=== PATIENT | male | born 1950 | race Caucasian/White ===

== ENCOUNTER 2017-11-13 15:58 | Inpatient (IN) | payer OTHER, SELFPAY ==
[2017-11-13] VITALS (16 sets, daily range): BP systolic 100–123; BP diastolic 70–83; PULSE 58–97; RESP 15–20; TEMP 36.6–37.1; O2SAT 94–100; BMI 29.5; BMI 27.5
--- NOTE | 2017-11-13 16:01 | RAD_ITS ---
STUDY: X-RAY CHEST REASON FOR EXAM: Male, 67 years old. Chest pain. STEMI. TECHNIQUE: Single AP portable view of the chest. COMPARISON: None. FINDINGS: Telemetry wires overlie the chest. The lungs are clear and expanded. There is no demonstrated pleural abnormality. Normal size heart. Normal mediastinum and gautam. Normal visualized pulmonary arteries. Normal visualized aortic arch and descending thoracic aorta. There are diffuse degenerative changes of the visualized thoracic spine. Normal visualized ribs, clavicles, and shoulders. There is no demonstrated abnormality of the visualized soft tissue structures of the upper abdomen. RAD/Chest 1 View (Portable) IMPRESSION: No acute cardiopulmonary disease. Electronically Signed: Santo Grover DO at 16:15 EDT Tel [phone], Service support ,
--- NOTE | 2017-11-13 16:01 | EKG12_ITS ---
Test Reason : STEMI/CHEST PAIN Blood Pressure : / mmHG Vent. Rate : 072 BPM Atrial Rate : 072 BPM P-R Int : 152 ms QRS Dur : 104 ms QT Int : 404 ms P-R-T Axes : 049 -70 010 degrees QTc Int : 442 ms Normal sinus rhythm Left anterior fascicular block Anterior infarct , possibly acute ACUTE UT / STEMI Abnormal ECG Confirmed by JOEY JAMES ([id number]), book or script editor CELSO MCCAIN ([id number]) on 11/27/2017 5:25:20 PM Referred By: Mojgan Salgado Confirmed By:JOEY JAMES
--- NOTE | 2017-11-13 16:02 | NURSING ---
NO OLD EKGS
--- NOTE | 2017-11-13 16:02 | NURSING ---
1542 STEMI CALLED ON [facility] EKG 15[address] LAZAR FOR DR DUVAL 1557 PATIENT ARRIVED
[2017-11-13] MEDS: Heparin Injection (Vial) 5,000 UNIT/ML VIAL 4000 UNIT IV (16:10)
[2017-11-13] MEDS: TICAGRELOR 90 MG TABLET 180 MG PO (16:10)
--- NOTE | 2017-11-13 16:12 | ED.VISSUMM ---
- ER Visit Summary Date of Service: 11/13/17 Chief Complaint: Chest pain while mowing the yard History of Present Illness: The patient is a 67 M Zentz by EMS with chest pain that occurred 30 minutes after he began mowing the yard. He describes as if horses sitting on his chest. Was associated with nausea, dyspnea, diaphoresis and radiation to both shoulders. He has no known history of coronary disease, diabetes, hypertension, hyperlipidemia. He does take a baby aspirin a day. He has never smoked. Past surgical history remarkable for appendectomy. He has no allergies. We were informed prior to arrival his blood pressure was 89 systolic. Fluid bolus was ordered. Physical Examination: Initial blood pressure is 106 systolic. He appears pale diaphoretic. He appears uncomfortable. Head is atraumatic normocephalic. Pupils are equal round reactive. Extraocular muscles are intact. TMs are pearly white with landmarks noted. Nares patent with no drainage. Posterior pharynx without erythema or exudate. Uvula is midline. There is no dysphonia or dysphasia. Trachea is midline. There is no stridor with auscultation of the neck. Heart is regular without murmur, gallop or rub. S1 and S2 are normal. Lungs are clear to auscultation with good movement of air bilaterally. Abdomen is soft nontender. Is no palpable semester down bruit. There is no palpable DP or PT pulse. Does have a palpable radial, femoral and carotid. He is alert oriented ?3. Pre-hospital EKG revealed hyper acute anterior T waves with reciprocal changes in the inferior leads. Received 4 baby aspirin. Test Results: EKG obtained in the emergency department reveals an acute anterior ST elevation HI with reciprocal changes inferior leads. Chest x-ray reveals normal mediastinum, cardiac silhouette and lung parenchyma. He received 180 mg of Brilinta and [address] elevation order set was initiated. Emergency Department Course and Treatment: Dr. Salgado is contacted once the EMS EKG was reviewed. Patient was consented for emergent cardiac catheterization, angioplasty and stenting. He was taken emergently to the Police Dispatcher. Treatment Plan: To cardiac Police Dispatcher for emergent cardiac catheterization, angioplasty and stenting Disposition: To Police Dispatcher Impression: 1. Acute anterior ST elevation HI 2. Hypotension/cardiogenic shock secondary #1 This note was generated with [employer] software. It may contain incorrect words, spelling, and punctuation that were not noted in review of the chart prior to signing ED Disposition - Plan for ED Patient: Chief Complaint: Chest Pain Referrals: Siva Canales MD [Primary Care Provider] -
--- NOTE | 2017-11-13 16:15 | ED.DCSUM_ITS ---
- ER Visit Summary Date of Service: 11/13/17 Chief Complaint: Chest pain while mowing the yard History of Present Illness: The patient is a 67 M Zentz by EMS with chest pain that occurred 30 minutes after he began mowing the yard. He describes as if horses sitting on his chest. Was associated with nausea, dyspnea, diaphoresis and radiation to both shoulders. He has no known history of coronary disease, diabetes, hypertension, hyperlipidemia. He does take a baby aspirin a day. He has never smoked. Past surgical history remarkable for appendectomy. He has no allergies. We were informed prior to arrival his blood pressure was 89 systolic. Fluid bolus was ordered. Physical Examination: Initial blood pressure is 106 systolic. He appears pale diaphoretic. He appears uncomfortable. Head is atraumatic normocephalic. Pupils are equal round reactive. Extraocular muscles are intact. TMs are pearly white with landmarks noted. Nares patent with no drainage. Posterior pharynx without erythema or exudate. Uvula is midline. There is no dysphonia or dysphasia. Trachea is midline. There is no stridor with auscultation of the neck. Heart is regular without murmur, gallop or rub. S1 and S2 are normal. Lungs are clear to auscultation with good movement of air bilaterally. Abdomen is soft nontender. Is no palpable semester down bruit. There is no palpable DP or PT pulse. Does have a palpable radial, femoral and carotid. He is alert oriented ?3. Pre-hospital EKG revealed hyper acute anterior T waves with reciprocal changes in the inferior leads. Received 4 baby aspirin. Test Results: EKG obtained in the emergency department reveals an acute anterior ST elevation NE with reciprocal changes inferior leads. Chest x-ray reveals normal mediastinum, cardiac silhouette and lung parenchyma. He received 180 mg of Brilinta and [address] elevation order set was initiated. Emergency Department Course and Treatment: Dr. Salgado is contacted once the EMS EKG was reviewed. Patient was consented for emergent cardiac catheterization, angioplasty and stenting. He was taken emergently to the Equipment Operator/Laborer. Treatment Plan: To cardiac Equipment Operator/Laborer for emergent cardiac catheterization, angioplasty and stenting Disposition: To Equipment Operator/Laborer Impression: 1. Acute anterior ST elevation NE 2. Hypotension/cardiogenic shock secondary #1 This note was generated with [employer] software. It may contain incorrect words, spelling, and punctuation that were not noted in review of the chart prior to signing ED Disposition - Plan for ED Patient: Chief Complaint: Chest Pain Referrals: Siva Canales MD [Primary Care Provider] -
--- NOTE | 2017-11-13 16:16 | CON.PCM_ITS ---
Problem List (1) STEMI (ST elevation myocardial infarction) Status: Acute Reason for Consult Date of Consultation: 11/13/17 History of Present Illness: The patient is a 67 year old M with no significant past medical history. He started having anterior chest pain radiating to both arms about 1 hour prior to presentation. Denies any shortness of breath. Positive diaphoresis. EEG done and route to the emergency room showed acute anterior ST elevation myocardial infarction. Subsequently a STEMI alert has been called. Patient denies any previous cardiac history. No previous history of angina either at rest or with exertion [] Past Medical History Allergies/Adverse Reactions: Allergies No Known Allergies Allergy (Verified 11/13/17 16:08) Home Medications: Ambulatory Orders Medication Instructions Recorded Aspirin [Aspirin, Baby] 81 mg PO DAILY@0800 11/13/17 Smoking Status: Never smoker Review of Systems - Review of Systems General: Denies: Fever, Chills HEENT: Denies: Vision Change, Sore Throat Cardiovascular: Reports: Chest Discomfort. Denies: Shortness of Breath, Orthopnea, PND Respiratory: Denies: Cough Gastrointestinal: Denies: Indigestion, Heart Burn, Jaundice, Nausea, Emesis, Hematemesis, Melena Neurological: Denies: History of TIA, History of CVA Endocrine: Denies: Heat Intolerance, Cold Intolerance Hematologic/ Lymphatic: Denies: Anemia, Easy Brusing, Easy Bleeding Objective: Vital Signs Temp Pulse Resp BP Pulse Ox 97.8 F 97 16 106/71 98 11/13/17 16:03 11/13/17 16:07 11/13/17 16:07 11/13/17 16:07 11/13/17 16:07 Oxygen Flow Rate (L/min) 2 Oxygen Delivery Method Nasal Cannula Weight: 96.1 kg Body Mass Index (BMI) 29.5 General: In Acute Distress HEENT: Atraumatic, Normocephalic Oral: Moist Mucosa Neck: Supple, No JVD Lungs: Clear to auscultation Cardiovascular: Regular Rhythm, Normal S1, Normal S2 Abdomen: Bowel Sounds Present, Soft Extremities: No edema Neurological: No Focal Motor or Sensory Deficit Psych/Mental Status: Anxious Rhythm: Normal sinus rhythm EKG: Normal sinus rhythm. Anterior ST elevation consistent with acute anterior myocardial infarction Assessment/Plan 1. Acute anterior myocardial infarction. Patient was advised emergent coronary angiography with possible revascularization. After obtaining informed consent, procedure was performed. Coronary angiography revealed total occlusion of the mid left anterior descending artery. Successful percutaneous revascularization was performed with aspiration thrombectomy, balloon angioplasty and drug-eluting stent placement with Resolute integrity 3.0 x 38 mm and 3.0 x 22 mm. excellent results were noted with mormonism of JOLEEN-3 flow 2. Continue aspirin lifelong. Brilinta treatment for at least one year 3. Left ventriculography revealed ejection fraction to be approximately 50%. Anterior apical hypokinesis is noted graft 4. Start on statins. Check lipid profile Care will be assumed by Dr. Reyes or Dr. Hernandez in the morning
[2017-11-13 16:18] LABS: Absolute Lymphocyte Count 4.68 X10^3/ul (0.83-4.51); Absolute Neutrophil Count 4.6 X10^3/uL (2.0-7.7); Basophil# 0.03 X10^3/uL; Basophil% 0.3 % (0-1); Eosinophil# 0.33 X10^3/uL; Eosinophils% 3.1 % (0-5); Hematocrit 41.3 % (40-54); Hemoglobin 13.8 g/dl (13.0-16.5); Lymphocyte # 4.68 X10^3/ul (4.0); Lymphocyte % 43.7 % (19-41); Mean Corp Hgb Conc 33.4 g/gl (32-36); Mean Corpuscular Hgb 29.9 pg (27.0-32.0); Mean Corpuscular Volume 89.6 fL (80-94); Mean Platelet Vol. 10.1 fl (6.2-12.0); Monocyte# 1.07 X10^3/uL; Neutrophil # 4.59 X10^3/uL (2.7-7.7); Neutrophil % 42.8 % (47-70); Platelet Count 190 K/mm3 (150-450); RBC Distribution Width CV 13.1 % (11.6-14.6); RBC Distribution Width SD 42.8 fl (35.1-43.9); Red Blood Count 4.61 M/mm3 (4.6-6.2); White Blood Count 10.7 K/mm3 (4.4-11.0)
[2017-11-13 16:20] LABS: POSITIVE COUNT NO; POSITIVE DIFFERENTIAL NO; POSITIVE MORPHOLOGY NO
[2017-11-13 16:29] LABS: International Normalized Ratio 1.1; Prothrombin Time (Protime)PT. 14.5 SECONDS (11.7-14.9)
[2017-11-13 16:30] LABS: Partial Thromboplast Time 26.9 Seconds (24.1-36.2)
[2017-11-13 16:34] LABS: Anion Gap 10 (5-15); BUN 21 mg/dL (7-18); Calcium,Total 8.4 mg/dL (8.5-10.1); Chloride 112 mmol/L (98-107); Creatinine, Serum 1.31 mg/dL (0.70-1.30); EST Glomerular Filtration Rate 58 mL/min (>60); Est Glom Filt Rate - Afr Amer 70 mL/min (>60); Estimated Creatinine Clearance 58.28 ml/min; Glucose 121 mg/dL (74-106); Potassium 3.5 mmol/L (3.5-5.1); Sodium Level 146 mmol/L (136-145)
--- NOTE | 2017-11-13 17:59 | ECHOD_ITS ---
Reason For Study: STEMI Procedure This was a 2D Doppler, Color Flow transthoracic echocardiogram. The exam was of fair technical quality due to body habitus. Exam performed portable in ICU/CCU. Left Ventricle Normal LV size. Mild to moderate segmental systolic dysfunction (see wall motion). The estimated ejection fraction is 40 %. There is evidence of diastolic dysfunction. Mid-Anterior : Severely Hypokinetic. Mid-Lateral : Severely Hypokinetic. Mid-inferoseptal : Akinetic. Mid-anteroseptal : Akinetic. [place] : Akinetic. Right Ventricle Normal RV size. Normal systolic function. Atria Normal left atrium. Normal right atrium. No doppler evidence for ASD. Mitral Valve There is no mitral annular calcification. Normal mitral valve. Mild (1+) mitral valve insufficiency. Tricuspid Valve Normal tricuspid valve. Mild to moderate (1-2+) tricuspid valve insufficiency. Right ventricular systolic pressure estimated to be 34 mmHg. Aortic Valve Trisinus/trileaflet aortic valve. Mild focal aortic valve thickening. Pulmonic Valve The pulmonic valve is not well visualized. Great Vessels Normal sized aortic root. Pericardium/Pleural No pericardial effusion. MMode/2D Measurements & Calculations LVIDd: 4.7 cm IVSd: 1.1 cm Ao root diam: 3.3 cm LVIDs: 3.3 cm LVPWd: 1.2 cm RVDd: 3.3 cm FS: 28.8 % LAV(MOD-bp): 48.5 ml LA A4 area: 14.4 cm2 RA A4 area: 13.9 cm2 LAV(MOD-bp) Indexed: 22.5 ml/m2 LAV(MOD-sp2): 55.1 ml LAV(MOD-sp4): 36.9 ml Doppler Measurements & Calculations MV E max zain: 88.0 cm/sec Lat Peak E' Zain: 6.1 cm/sec Med Peak E' Zain: 5.0 cm/sec MV A max zain: 143.1 cm/sec E/E' lat: 14.5 E/E' med: 17.7 MV E/A: 0.61 Ao V2 max: 134.4 cm/sec LV V1 max: 101.1 cm/sec PA V2 max: 87.5 cm/sec Ao max P.2 mmHg LV V1 max P.1 mmHg PI end-d zain: 109.3 cm/sec TR max zain: 279.5 cm/sec TR max P.3 mmHg Interpretation Summary Mild to moderate segmental systolic dysfunction (see wall motion). The estimated ejection fraction is 40 %. Mild (1+) mitral valve insufficiency. Mild to moderate (1-2+) tricuspid valve insufficiency. Mild focal aortic valve thickening. Right ventricular systolic pressure estimated to be 34 mmHg. There is evidence of diastolic dysfunction. Ordering Physician: Mojgan Salgado Referring Physician: LIZZIE FLORENTINO Performed By: Sari Terry, SWATHI, RVT
[2017-11-13 18:06] LABS: ACT Activated Clotting Time 180 sec (74-137)
[2017-11-13 18:06] LABS: ACT Activated Clotting Time 318 sec (74-137)
[2017-11-13 18:06] LABS: ACT Activated Clotting Time 197 sec (74-137)
--- NOTE | 2017-11-13 19:08 | PCM.HP.STD ---
Problem List (1) STEMI (ST elevation myocardial infarction) Status: Acute Qualifiers: Involved coronary artery: LAD coronary artery Qualified Code(s): I21.02 - ST elevation (STEMI) myocardial infarction involving left anterior descending coronary artery (2) Acute kidney failure Status: Acute Qualifiers: Acute renal failure type: unspecified Qualified Code(s): N17.9 - Acute kidney failure, unspecified History of Present Illness Date of Admission: 11/13/17 Chief Complaint: Chest pain - 1 day The patient is a 67 year old M with no significant past medical history, takes a baby aspirin daily, comes in with complaints of chest pain ongoing for 1 day. Patient woke up this morning and was in his usual state of health, walked across to the neighbors and back to his house. He started having left-sided chest heaviness that radiated to the left arm. This lasted for some minutes and went away as he rested on the pouch of his house. He subsequently went about his usual duties by cleaning his car, mowing his yard and also his neighbor's yard. He had no symptoms whilst doing the yard work. He came into the house and felt unwell and went to lay down. He started having continuous chest pressure he describes as an elephant sitting on his chest, radiating to his left arm. He felt diaphoretic, easy, and his gave him 2 baby aspirins to take and called the EMS. Upon Arrival by the EMS, patient's blood pressure was 92/56, heart rate was 68, patient appeared labored and pale/ashen. EKG done on the floor shows anterior CA with reciprocal inferior changes. Patient underwent emergent cardiac cath and findings showed total occlusion of the mid LAD with aspiration thrombectomy, balloon angioplasty and drug-eluting stent was placed. Subsequently seen in the ICU. He denied any chest pain or dizziness or shortness of breath. He states he feels much better. Past Medical History Allergies No Known Allergies Allergy (Verified 11/13/17 16:08) Home Medications: Ambulatory Orders Medication Instructions Recorded Aspirin [Aspirin, Baby] 81 mg PO DAILY@0800 11/13/17 Glucosamine [place] MSM Tab 11/13/17 Multivitamin 11/13/17 Surgical History: appendectomy Psychiatric History: No pertinent psych hx Lives: Spouse/ Significant Other Smoking Status: Never smoker Tobacco Use: Non-smoker - *Family History Maternal History Items: Heart Disease, Stroke, - - Dementia Paternal History Items: Heart Disease, Stroke Sibling History Items: Heart Disease - heart attacks Review of Systems Constitutional: Denies: Anorexia, Chills, Fever, Night Sweats, Weakness, Weight Change Eyes: Denies: Blurred vision, Cataracts, Conjunctivae Inflammation, Pain, Redness, Vision Change HEENT: Denies: Difficulty Hearing, Difficulty Swallowing, Head Aches, Hearing Changes, Sinus Congestion, Sinus Drainage, Sore Throat Cardiovascular: Denies: Chest Pain, Claudication, Chest Pressure, Orthopnea, Palpitations, Paroxysmal Noc. Dyspnea Respiratory: Denies: Cough, Hemoptysis, Shortness of breath at rest, Shortness of breath upon exertion, Sputum production Gastrointestinal: Denies: Abdominal Pain, Constipation, Hematemesis, Nausea, Vomiting Genitourinary: Denies: Dysuria, Frequency, Hematuria, Incontinence Musculoskeletal: Denies: Arm Pain, Back Pain, Joint Pain, Joint stiffness, Joint swelling, Joint Tenderness Skin: Denies: Dryness, Jaundice, Lesions, Pruritis, Rash, Wounds Neurological: Denies: Difficulty swallowing, Focal weakness, Headaches, Numbness, Tingling Psychiatric: Denies: Anxiety, Depression, Homicidal Ideations, Suicidal Ideations Hematologic/ Lymphatic: Denies: Adenopathy, Anemia, Easy Bruising, Easy Bleeding VTE Information - Inpt Only VTE Present on Admission: No VTE Pharm Prophylaxis ordered?: Yes Patient Problems: Active and Suspected Problems Acute kidney failure (Acute) - Physical Exam General: Alert, Oriented x3, Cooperative, No apparent distress HEENT: Atraumatic, PERRLA, EOMI, Normocephalic Oral: Moist Mucosa Neck: Supple Lungs: Clear to auscultation, Normal air movement Cardiovascular: Regular rate, Regular Rhythm, Normal S1, Normal S2, No murmurs Abdomen: Bowel Sounds Present, Soft, Non Tender, Non-Distended, No Hepato-splenomegaly, Obese Extremities: No edema, - Skin: No rashes, No breakdown Musculoskeletal: No Tenderness to Palpation of Joints or Extremities Neurological: Cranial nerves II-XII grossly intact, Neuro grossly intact Psych/Mental Status: Normal Affect, Appropriate Vital Signs Temp Pulse Resp BP Pulse Ox 97.8 F 70 18 117/81 H 98 11/13/17 16:03 11/13/17 19:01 11/13/17 18:30 11/13/17 18:30 11/13/17 18:30 Oxygen Flow Rate (L/min) 2 Oxygen Delivery Method Nasal Cannula Weight: 87.09 kg Body Mass Index (BMI) 27.5 Laboratory Tests Past 24 Hrs 11/13/17 11/13/17 11/13/17 16:23 17:28 17:35 Activated Clotting Time 180 H 197 H 318 H Assessment/Plan Active and Suspected Problems Acute kidney failure (Acute) 67 year old M with no significant past medical history, takes a baby aspirin daily, comes in with complaints of chest pain ongoing for 1 day. 1. Acute STEMI, JOLEEN score of 4, s/p cardiac cath, aspiration thrombectomy, balloon angioplasty, DELMY in mid LAD, EF 50-%, stable Plan: Continue management by foil stamp operator, aspirin, statin, statin, beta-angel, MARGIE inhibitor, check lipid profile in a.m., HbA1c, continue to monitor vitals on telemetry. 2. Elevated creatinine, unclear of patient's baseline, likely related to dehydration, on IV fluids, repeat labs in a.m. 3. Hypernatremia, likely related to dehydration, on IV fluids, repeat labs in a.m. 4. DVT PPX - early ambulation; may start anticoagulation from tomorrow if still in hospital. Code Visit Inpatient E&M: 28859 Init Hosp L3
[2017-11-13] MEDS: 0.9% Normal Saline 1,000 ML 75 ML IV (19:39)
[2017-11-13] MEDS: Atorvastatin Calcium 80 MG Tablet PO (19:46)
[2017-11-13 20:20] LABS: Hemoglobin A1c 5.5 % (4.2-6.3)
[2017-11-13] MEDS: TICAGRELOR 90 MG TABLET PO (21:49)
[2017-11-13] MEDS: 0.9% NaCl Peripheral Flush Adult/Peds IV (22:58)
[2017-11-13] MEDS: Carvedilol 3.125 MG TABLET PO (22:59)
[2017-11-14] VITALS (32 sets, daily range): BP systolic 100–137; BP diastolic 58–86; PULSE 53–77; RESP 13–22; TEMP 36.6–37.2; O2SAT 94–99
[2017-11-14 00:16] LABS: M R Staph aureus DNA By PCR Negative (Negative); Probe Check PASS; Specimen Processing Control PASS
[2017-11-14 05:16] LABS: Hematocrit 39.2 % (40-54); Hemoglobin 13.2 g/dl (13.0-16.5); Mean Corp Hgb Conc 33.7 g/gl (32-36); Mean Corpuscular Hgb 30.2 pg (27.0-32.0); Mean Corpuscular Volume 89.7 fL (80-94); Mean Platelet Vol. 10.2 fl (6.2-12.0); Platelet Count 166 K/mm3 (150-450); RBC Distribution Width CV 13.4 % (11.6-14.6); RBC Distribution Width SD 43.9 fl (35.1-43.9); Red Blood Count 4.37 M/mm3 (4.6-6.2); White Blood Count 10.7 K/mm3 (4.4-11.0)
[2017-11-14 05:29] LABS: Scan Indicated on CBC? Y/N NO
[2017-11-14 05:31] LABS: ALB/GLOB Ratio 1.1 RATIO (0.9-2.4); AST(SGOT) 336 U/L (15-37); Alanine Aminotransfer ALT/SGPT 77 U/L (16-61); Albumin, Serum 3.1 g/dL (3.2-5.0); Alkaline Phosphatase 62 U/L (45-117); Anion Gap 9 (5-15); BUN 18 mg/dL (7-18); BUN/Creat Ratio 18.2 RATIO (10-20); Calcium,Total 8.3 mg/dL (8.5-10.1); Chloride 112 mmol/L (98-107); Cholesterol 109 mg/dL (200); Creatinine, Serum 0.99 mg/dL (0.70-1.30); EST Glomerular Filtration Rate 80 mL/min (>60); Est Glom Filt Rate - Afr Amer 97 mL/min (>60); Estimated Creatinine Clearance 74.76 ml/min; Globulin 2.8 g/dL (2.2-4.2); Glucose 111 mg/dL (74-106); High Density Lipoprotein 39 mg/dL; Potassium 4.4 mmol/L (3.5-5.1); Protein, Total 5.9 g/dL (6.4-8.2); Sodium Level 143 mmol/L (136-145); Triglycerides 47 mg/dL; Very Low Density Lipoprotein 9 mg/dL (5-40)
--- NOTE | 2017-11-14 05:55 | EKG12_ITS ---
Test Reason : AM EKG Blood Pressure : / mmHG Vent. Rate : 056 BPM Atrial Rate : 056 BPM P-R Int : 170 ms QRS Dur : 120 ms QT Int : 452 ms P-R-T Axes : 057 -75 -11 degrees QTc Int : 436 ms Sinus bradycardia Left anterior fascicular block Anterolateral infarct , age undetermined Abnormal ECG When compared with ECG of 13-NOV-2017 18:08, MANUAL COMPARISON REQUIRED, DATA IS UNCONFIRMED Confirmed by FRED MOISE, KAPIL ([id number]), metropolitan editor CELSO MCCAIN ([id number]) on 11/30/2017 4:57:47 PM Referred By: Mojgan Salgaod Confirmed By:KAPIL IBARRA MD
[2017-11-14] MEDS: Aspirin E.C. 81 MG Tablet PO (08:08)
--- NOTE | 2017-11-14 08:23 | PCM.PN.CARD ---
Subjectve: Patient doing well, no 24 hour events. Telemetry showed normal sinus rhythm with rare PVCs. EKG shows normal sinus rhythm with Q waves anteriorly and inferiorly. Troponins pending. Hemoglobin and creatinine within nominal limits. Patient has mild chest soreness but much improved chest pain. Right radial site is clean/dry/intact. Objective: Vital Signs Temp Pulse Resp BP Pulse Ox 98.5 F 68 17 112/73 96 11/14/17 08:00 11/14/17 08:00 11/14/17 08:00 11/14/17 08:00 11/14/17 08:00 Oxygen Flow Rate (L/min) 2 Oxygen Delivery Method Room Air Weight: 192 lb Body Mass Index (BMI) 27.5 Intake and Output for Last 24 Hours 11/12/17 11/13/17 11/14/17 23:59 23:59 23:59 Intake Total 477 / 477 453 / 453 Output Total 1100 / 1100 125 / 125 Balance -623 / -623 328 / 328 General: Awake, Alert, Oriented x 3 HEENT: PERRL, EOMI, Sclera Non Icteric Neck: Supple, Good ROM, No Lymph Node Enlargement Lungs: Clear to auscultation Cardiovascular: Regular Rhythm, Normal S1, Normal S2, No Murmurs, No Rubs, No Gallops Vascular: No Carotid Bruits, Normal Femoral Pulses, Normal Radial Pulses, Normal Dorsalis Pedal Pulse, Normal Posterior Tibial Pulses Abdomen: Bowel Sounds Present, Soft, Non Tender, No HSM, No Organomegaly Extremities: No Cyanosis, No Clubbing, No edema Neurological: No Focal Motor or Sensory Deficit 11/14/17 05:00: WBC 10.7, RBC 4.37 L, Hgb 13.2, Hct 39.2 L, MCV 89.7, MCH 30.2, MCHC 33.7, RDW 13.4, RDW Differential 43.9, Plt Count 166, MPV 10.2 11/14/17 05:00: Sodium 143, Potassium 4.4, Chloride 112 H, Carbon Dioxide 22.0, Anion Gap 9, BUN 18, Creatinine 0.99, Est GFR (MDRD) Af Amer 97, Est GFR (MDRD) Non-Af 80, BUN/Creatinine Ratio 18.2, Glucose 111 H, Calcium 8.3 L, Total Bilirubin 0.60, Triglycerides 47, Cholesterol 109, LDL Cholesterol 61, VLDL Cholesterol 9, HDL Cholesterol 39 L Rhythm: EKG: ECHO: Stress Test: Cardiac Cath: PCI: CT Surgery: Holter monitor: EPS: PPM: CXR: Chest CT Scan: Medical Necessity - Tobacco Use Smoking Status: Never smoker Tobacco Use: Non-smoker Assessment/Plan 1. Coronary artery disease: The patient presents with acute anterior wall myocardial infarction status post emergent angioplasty and stenting ?2 to the LAD with an excellent result. Patient has nonobstructive disease located in his mid circumflex and 2 tandem areas, I would recommend considering stress echocardiogram in 4 weeks time to evaluate for possible elective intervention. The meantime he will continue aspirin, Brilinta, beta blockers, MARGIE inhibitors, and we will monitor his troponins going forward. His telemetry shows normal sinus rhythm with rare PVCs. Patient will continue in ICU for 1 more day unless an acute bed is required then he can be transferred down to stepdown/PCU provided he does not have excessive ectopy going forward. My expectation is he will most likely be discharged home tomorrow. 2. Hyperlipidemia: Continue Lipitor therapy. Repeat lipid profile in 6 weeks time. 3. Thank you very much for the opportunity to participate in the cardiac care of the patient. Code Visit Inpatient E&M: 53964 Subs Hosp L2
--- NOTE | 2017-11-14 09:39 | CL.I_ITS ---
Patient Name: HI MCCAIN Study Date: 11/13/2017 Performing: Mojgan Salgado MD Ht: 70.07 inches 178 cm : 1950 Wt: 192 lbs 87.09 kg Age: 67 Gender: male BSA: 2.05 PROCEDURE(S) PERFORMED RR66-DCA, DELMY AND/OR PTCA, ARTERY OR GRAFT, SINGLE VESSEL DQ46-BFL/COR/LV CLINICAL PROFILE AND CO-MORBIDITIES Heart Failure: None CAD Presentations: STEMI. Symptom onset Date/Time: 11/13/2017 15:00:00 Time Estimated CONCLUSIONS 100% Mid LAD 40% Mid LCX LVEF 50%. Anterior apical hypokinesis RECOMMENDATIONS ASA Indefinitley Brilinta for at least 12 months Routine post interventional care DESCRIPTION OF PROCEDURE The patient arrived to the procedure lab. The risks and benefits of the procedure as well as a full d escription of our services here and lack of surgical backup were fully explained to the patient and/o r their significant other prior to the catheterization. The Timeout was completed, verifying the mike ect patient and procedure. The patient's procedural site was prepped and draped in the usual fashion. Local anesthetic was given subcutaneously to right radial region with Lidocaine 2%. Using a modified Seldinger technique, arterial access was obtained via the right radial artery, a 6Fr sheath was inse rted.. Left Coronary Artery selective angiography was performed in multiple views using a 6 Fr. XB 3 .0 GUIDE. Right Coronary Artery selective angiography was then performed in multiple views using a 5 Fr. JR 4 catheter. Left Ventriculography was performed in KNOX projection using a 5 Fr. Pigtail cathet er. LV to AO pullback pressures were then recorded XB 3.0 Guide catheter was inserted and engaged into the LCA. RUNTHROUGH Guide wire was advanced to th e LAD. [place] AP inserted Pass # 1 [place] AP Removed 3.0X15 EMERGE Balloon catheter was inserted. Bal loon catheter was advanced across lesion in the LAD, mid. PTCA balloon inflated at 6 atms for 15 secs . PTCA balloon inflated at 10 atms for 20 secs. PTCA balloon inflated at 6 atms for 15 secs. PTCA bal loon inflated at 12 atms for 10 secs. PTCA balloon inflated at 10 atms for 23 secs. PTCA balloon infl ated at 10 atms for 12 secs. 3.00X38 RESOLUTE Drug Eluting stent was inserted. Drug Eluting stent was advanced across the lesion in the LAD, mid. RUNTHROUGH Guide wire was inserted as a natalia wire 3.0X3 0 NC EMERGE Balloon catheter was inserted post stent. Angiogram performed post balloon dilatation. 3. 0X22 RESOLUTE Drug Eluting stent was inserted. Drug Eluting stent was advanced across the lesion in t he LAD, mid. 3.00X30 NC EMERGE Balloon catheter was reinserted 1.58 EMERGE PUSH Balloon catheter was inserted IN THE OSTIAL DIAG PTCA balloon inflated at 14 atms for 20 secs. PTCA balloon inflated at 14 atms for 15 secs. PTCA balloon inflated at 16 atms for 20 secs. 2.0X12 EMERGE Balloon catheter was i nserted IN THE OSTIAL DIAG PTCA balloon inflated at 10 atms for 40 secs. 3.0X30 NC EMERGE Balloon cat heter was inserted IN THE OSTIAL DIAG PTCA balloon inflated at 14 atms for 10 secs. PTCA balloon infl ated at 14 atms for 15 secs. PTCA balloon inflated at 14 atms for 10 secs. The arterial sheath was pulled and a TR Band was applied for hemostasis-18cc air CORONARY ANGIOGRAPHY DOMINANCE: Right Dominant LEFT HEART ASSESSMENT Left Ventricular Ejection Fraction: by LV Gram 50 % LVEDP: 22 mmHg Apical Hypokinesis - Severe LEFT MAIN: Angiographically normal LEFT ANTERIOR DECENDING ARTERY: 100% Mid CIRCUMFLEX ARTERY: 40% Mid RIGHT CORONARY ARTERY: Mild luminal irregularities INTERVENTION INFORMATION LESION SITE: LAD (Mid) Lesion Complexity: High/C, thrombus present: Yes, culprit lesion: Yes, chronic total occlusion: No Pre Stenosis: 100 % Pre intervention JOLEEN flow: 0 PROCEDURE: Aspiration thrombectomy, PTCA and DELMY placement Post Stenosis: 0 % Post intervention JOLEEN flow: 3 Lesion Devices: Cordis 6 Fr XB3.0 100cm Guide Catheter Terumo .014 Runthrough Extra Floppy 180cm straight Medtronic 6 Fr. [place] AP Aspiration Catheter Elmer Sci EMERGE MR 3.00x15 BALLOON Medtronic Resolute RX DELMY 3.0x38 Elmer Sci NC EMERGE MR 3.00x30 BALLOON Medtronic Resolute RX DELMY 3.0x22 COMPLICATIONS No Complications PROCEDURE MEDICATIONS Oxygen: 2 L/min via nasal cannula Angiomax Bolus 12.8 ml's 11/13/2017 16:30:15 Angiomax 5mg / ml @ 29.8 ml/hr IV started @ 29.8 ml/hr @ 11/13/2017 16:31:43 Nitro 50 mcg IC 11/13/2017 16:42:44 Nitro 50 mcg IC 11/13/2017 16:42:44 Verapamil 2.5mg, Ntg 100mcgs, given IA 11/13/2017 16:21:34 SUMMARY OF HEMODYNAMIC DATA Time AIR REST ECG 16:18:11 AO 127/63 (83) SA 16:21:22 AO 103/61 (81) 16:23:52 AO 84/57 (70) 16:45:25 LV 115/9, 22 17:30:38 LV 116/8, 21 17:30:43 LVp 93/20, 30 17:31:38 AOp 94/63 (77) 17:31:43 Signed By Mojgan Salgado MD On 11/14/2017 09:38:59 Mojgan Salgado MD
--- NOTE | 2017-11-14 10:23 | CASEMGMT ---
See RN CM Assessment Link. DC Plan: home -Pt and his decline discharge needs. -Brillinta savings card given to pt, explained.Delfina DOSSN RN ACM
[2017-11-14] MEDS: Carvedilol 3.125 MG TABLET PO ×2 (10:39→21:13)
[2017-11-14] MEDS: 0.9% NaCl Peripheral Flush Adult/Peds IV (10:39)
[2017-11-14] MEDS: Lisinopril 2.5 MG Tablet PO (10:39)
[2017-11-14] MEDS: TICAGRELOR 90 MG TABLET PO ×2 (10:39→21:13)
--- NOTE | 2017-11-14 10:46 | PN_ITS ---
Patient Problems: Active and Suspected Problems Acute kidney failure (Acute) Vitals/I&O's: Vital Signs Temp Pulse Resp BP Pulse Ox 98.1 F 63 18 107/58 L 97 11/14/17 10:00 11/14/17 10:00 11/14/17 10:00 11/14/17 10:00 11/14/17 10:00 Oxygen Flow Rate (L/min) 2 Oxygen Delivery Method Room Air Weight: 87.09 kg Body Mass Index (BMI) 27.5 Intake and Output for Last 24 Hours 11/12/17 11/13/17 11/14/17 23:59 23:59 23:59 Intake Total 477 / 477 453 / 453 Output Total 1100 / 1100 125 / 125 Balance -623 / -623 328 / 328 Laboratory Results 11/13/17 16:23: Activated Clotting Time 180 H 11/13/17 17:28: Activated Clotting Time 197 H 11/13/17 17:35: Activated Clotting Time 318 H 11/13/17 22:30: MRSA (PCR) Negative 11/14/17 05:00: WBC 10.7, RBC 4.37 L, Hgb 13.2, Hct 39.2 L, MCV 89.7, MCH 30.2, MCHC 33.7, RDW 13.4, RDW Differential 43.9, Plt Count 166, MPV 10.2 11/14/17 05:00: Sodium 143, Potassium 4.4, Chloride 112 H, Carbon Dioxide 22.0, Anion Gap 9, BUN 18, Creatinine 0.99, Estim Creat Clear Calc 74.76, Est GFR ( MDRD) Af Amer 97, Est GFR (MDRD) Non-Af 80, BUN/Creatinine Ratio 18.2, Glucose 111 H, Calcium 8.3 L, Total Bilirubin 0.60, AST 336 H, ALT 77 H, Alkaline Phosphatase 62, Total Protein 5.9 L, Albumin 3.1 L, Globulin 2.8, Albumin/ Globulin Ratio 1.1, Triglycerides 47, Cholesterol 109, LDL Cholesterol 61, VLDL Cholesterol 9, HDL Cholesterol 39 L 11/14/17 08:15: Troponin I 119.000 H* Current Medications Aspirin (Ecotrin) 81 mg PO DAILY@0800 [facility] Last Admin: 11/14/17 08:08 Dose: 81 mg Atorvastatin Calcium (Lipitor) 80 mg PO QHS [facility] Last Admin: 11/13/17 19:46 Dose: 80 mg Atropine Sulfate () 0.5 mg IV UD PRN PRN Reason: HR <50 bpm Carvedilol (Coreg) 3.125 mg PO BID [facility] Last Admin: 11/14/17 10:39 Dose: 3.125 mg Lisinopril (Zestril) 2.5 mg PO DAILY [facility] Last Admin: 11/14/17 10:39 Dose: 2.5 mg Nitroglycerin (Nitrostat) 0.4 mg SUBLINGUAL Q5M PRN PRN Reason: CARDIAC/CHEST PAIN Sodium Chloride () 500 ml IV BOLUS PRN PRN Reason: VASO-VAGAL PROTOCOL Sodium Chloride () 5 - 30 ml IV UD PRN PRN Reason: SALINE FLUSH Last Admin: 11/14/17 10:39 Dose: 10 ml Ticagrelor (Brilinta) 90 mg PO BID [facility] Last Admin: 11/14/17 10:39 Dose: 90 mg Medical Necessity - Tobacco Use Smoking Status: Never smoker Tobacco Use: Non-smoker Assessment/Plan Active and Suspected Problems Acute kidney failure (Acute)
--- NOTE | 2017-11-14 12:36 | CHAPLAIN ---
Type of Pastoral Visit _x__ Initial Visit ___ Follow-up Visit ___ On-call Visit ___ General Patient Visit ___ Spiritual Assessment ___ Family Conference ___ Bereavement ___ Rapid Response ___ Code Blue ___ Other (describe below) Pastoral Care Referral From _x__ Patient ___ Family ___ Nurse ___ Physician ___ Consumer Insights Intern ___ Cycle Counter ___ Other (describe below) Sacrament/Intervention _x__ Active listening ___ Anointing ___ Tenriism ___ Bereavement ___ Communion _x__ Janet exploration ___ _x__ Life review _x__ Prayer ___ Reconciliation ___ Sacrament of Sick _x__ Supportive presence ___ Wedding ___ Other (describe below) Pastoral Comments
--- NOTE | 2017-11-14 13:09 | CRPHASE1 ---
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 Risk Factors/Lifestyle Smoking Status: Never smoker Hx Hypertension: No Hx Diabetes Mellitus Type 1: No Hx Diabetes Mellitus Type 2: No Hx Metabolic Disorders: No Hx Dyslipidemia: No Hx Obesity: No Height: 5 ft 10 in - BMI 27.5 Stress: Home/Family Risk Factor for Sedentary Lifestyle: Moderate Risk Family History: No pertinent history Laboratory Values: Cardiac Rehab Phase I Labs Hemoglobin A1c 5.5 % (4.2-6.3) 11/13/17 16:05 Triglycerides 47 mg/dL (-199) 11/14/17 05:00 Cholesterol 109 mg/dL (200) 11/14/17 05:00 LDL Cholesterol 61 mg/dL (0-130) 11/14/17 05:00 HDL Cholesterol 39 mg/dL (40-) L 11/14/17 05:00 Phase I Education Given On:: [place], Nutrition, Antiplatelet medication Issues Affecting Care:: None Knowledge of Condition:: Yes Learning Preferences: Verbal, Written Medical/Surgical History [place]:: Yes - STEMI CAD:: No Diabetes:: No Diabetes Type I:: No Diabetes Type II:: No Hypertension:: No Dyslipidemia:: Yes Arrhythmias:: No Discharge/Home/Social Eval Discharge Disposition: Home
--- NOTE | 2017-11-14 13:12 | CRPHASE1_ITS ---
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 Risk Factors/Lifestyle Smoking Status: Never smoker Hx Hypertension: No Hx Diabetes Mellitus Type 1: No Hx Diabetes Mellitus Type 2: No Hx Metabolic Disorders: No Hx Dyslipidemia: No Hx Obesity: No Height: 5 ft 10 in - BMI 27.5 Stress: Home/Family Risk Factor for Sedentary Lifestyle: Moderate Risk Family History: No pertinent history Laboratory Values: Cardiac Rehab Phase I Labs Hemoglobin A1c 5.5 % (4.2-6.3) 11/13/17 16:05 Triglycerides 47 mg/dL (-199) 11/14/17 05:00 Cholesterol 109 mg/dL (200) 11/14/17 05:00 LDL Cholesterol 61 mg/dL (0-130) 11/14/17 05:00 HDL Cholesterol 39 mg/dL (40-) L 11/14/17 05:00 Phase I Education Given On:: [place], Nutrition, Antiplatelet medication Issues Affecting Care:: None Knowledge of Condition:: Yes Learning Preferences: Verbal, Written Medical/Surgical History [place]:: Yes - STEMI CAD:: No Diabetes:: No Diabetes Type I:: No Diabetes Type II:: No Hypertension:: No Dyslipidemia:: Yes Arrhythmias:: No Discharge/Home/Social Eval Discharge Disposition: Home
--- NOTE | 2017-11-14 13:13 | CRPH1.INST_ITS ---
General Education CAD and cardiac anatomy and function:: Patient communicates acknowledgment Explanation of diagnoses and procedures:: Patient communicates acknowledgment Sign/Symptoms of [place]:: Patient communicates acknowledgment Antiplatelet therapy: Patient communicates acknowledgment Proper use of NTG-SL: Patient communicates acknowledgment Emergency procedures and activation of EMS: Patient communicates acknowledgment Compliance of all prescribed medications: Patient communicates acknowledgment Smoking Patient Nicotine/Smoking Risk Factors Are:: Never smoked Dyslipidemia Patient Dyslipidemia Risk Factors Are:: HDL Recommendations Include:: Lipid profile provided, Reviewed NCEP/ATP guidelines, Therapeutic Lifestyle Change dietary guidelines Dyslipidemia Response Code:: Patient communicates acknowledgment Overweight/Obesity Patient Overweight/Obesity Risk Factors Are:: BMI Normal [24-29 & > 65 years old ] Recommendations Include:: Weight loss of 5-10%, Reduced calorie diet, Exercise 5 -7 times/week Overweight/Obesity:: Patient communicates acknowledgment Heart Disease Patient Heart Disease Risk Factors Are:: Previous cardiac event Diabetes Patient Diabetes Risk Factors Are:: No documented hx of diabetes Metabolic Syndrome Recommendations Include:: Does not meet criteria Sedentary Recommendations Include:: Benefits of regular exercise, Discussed home walking program, Monitored Outpatient Cardiac Rehab Sedentary Response Code:: Patient communicates acknowledgment Stress Recommendations Include:: Identification of stressors, and assessment of coping skills, Stress management techniques Stress Response Code:: Patient communicates acknowledgment
--- NOTE | 2017-11-14 17:23 | PCM.PN.HOSP ---
Patient Problems: Active and Suspected Problems Acute kidney failure (Acute) Subjective: CC: follow up on acute LA Objective: The patient denies any chest pain, shortness of breath or palpitations. Vitals/I&O's: Vital Signs Temp Pulse Resp BP Pulse Ox 98.9 F 65 15 125/74 H 96 11/14/17 16:00 11/14/17 17:00 11/14/17 17:00 11/14/17 17:00 11/14/17 17:00 Oxygen Flow Rate (L/min) 2 Oxygen Delivery Method Room Air Weight: 87.09 kg Body Mass Index (BMI) 27.5 Intake and Output for Last 24 Hours 11/12/17 11/13/17 11/14/17 23:59 23:59 23:59 Intake Total 477 / 477 853 / 853 Output Total 1100 / 1100 525 / 525 Balance -623 / -623 328 / 328 General: Alert, Oriented x3 Neck: Supple, No JVD Lungs: Clear to auscultation, Normal air movement Cardiovascular: Regular rate, Normal S1, Normal S2 Abdomen: Bowel Sounds Present, Soft, Non Tender Extremities: No edema Skin: No rashes Neurological: Cranial nerves II-XII grossly intact, Deep Tendon Reflexes 2+/4 and Symmetrical, Motor Exam 5/5 strength throughout Laboratory Results 11/13/17 16:23: Activated Clotting Time 180 H 11/13/17 17:28: Activated Clotting Time 197 H 11/13/17 17:35: Activated Clotting Time 318 H 11/13/17 22:30: MRSA (PCR) Negative 11/14/17 05:00: WBC 10.7, RBC 4.37 L, Hgb 13.2, Hct 39.2 L, MCV 89.7, MCH 30.2, MCHC 33.7, RDW 13.4, RDW Differential 43.9, Plt Count 166, MPV 10.2 11/14/17 05:00: Sodium 143, Potassium 4.4, Chloride 112 H, Carbon Dioxide 22.0, Anion Gap 9, BUN 18, Creatinine 0.99, Estim Creat Clear Calc 74.76, Est GFR (MDRD) Af Amer 97, Est GFR (MDRD) Non-Af 80, BUN/Creatinine Ratio 18.2, Glucose 111 H, Calcium 8.3 L, Total Bilirubin 0.60, AST 336 H, ALT 77 H, Alkaline Phosphatase 62, Total Protein 5.9 L, Albumin 3.1 L, Globulin 2.8, Albumin/Globulin Ratio 1.1, Triglycerides 47, Cholesterol 109, LDL Cholesterol 61, VLDL Cholesterol 9, HDL Cholesterol 39 L 11/14/17 08:15: Troponin I 119.000 H* 11/14/17 11:20: Troponin I 89.200 H* 11/14/17 14:20: Troponin I 76.100 H* Current Medications Aspirin (Ecotrin) 81 mg PO DAILY@0800 [facility] Last Admin: 11/14/17 08:08 Dose: 81 mg Atorvastatin Calcium (Lipitor) 80 mg PO QHS [facility] Last Admin: 11/13/17 19:46 Dose: 80 mg Atropine Sulfate () 0.5 mg IV UD PRN PRN Reason: HR <50 bpm Carvedilol (Coreg) 3.125 mg PO BID [facility] Last Admin: 11/14/17 10:39 Dose: 3.125 mg Lisinopril (Zestril) 2.5 mg PO DAILY [facility] Last Admin: 11/14/17 10:39 Dose: 2.5 mg Nitroglycerin (Nitrostat) 0.4 mg SUBLINGUAL Q5M PRN PRN Reason: CARDIAC/CHEST PAIN Sodium Chloride () 500 ml IV BOLUS PRN PRN Reason: VASO-VAGAL PROTOCOL Sodium Chloride () 5 - 30 ml IV UD PRN PRN Reason: SALINE FLUSH Last Admin: 11/14/17 10:39 Dose: 10 ml Ticagrelor (Brilinta) 90 mg PO BID [facility] Last Admin: 11/14/17 10:39 Dose: 90 mg Medical Necessity - Tobacco Use Smoking Status: Never smoker Tobacco Use: Non-smoker Assessment/Plan Active and Suspected Problems Acute kidney failure (Acute) 1. Acute STEM; s/p cardiac cath, aspiration thrombectomy, balloon angioplasty, DELMY in mid LAD, he remains clinically stable and will continue on current cardioprotective medications. 2. Acute kidney injury; will continue on IV hydration and avoid potential nephrotoxic medications. 3. Hypernatremia from volume depletion this has improved with IV hydration. 4. DVT prophylaxis with SCDs for now. Code Visit Inpatient E&M: 71714 Subs Hosp L2
[2017-11-14] MEDS: Atorvastatin Calcium 80 MG Tablet PO (21:13)
[2017-11-15] VITALS (16 sets, daily range): BP systolic 93–118; BP diastolic 56–77; PULSE 63–80; RESP 13–17; TEMP 36.7–37.2; O2SAT 95–98
--- NOTE | 2017-11-15 08:32 | PCM.PN.CARD ---
Subjectve: Patient doing well this morning. No further chest pain. Telemetry showed normal sinus rhythm with 4 beats of nonsustained V. tach. Troponins trending downwards. Peak troponin 89.1. Objective: Vital Signs Temp Pulse Resp BP Pulse Ox 98.1 F 70 16 96/66 95 11/15/17 07:00 11/15/17 07:29 11/15/17 07:00 11/15/17 07:00 11/15/17 07:00 Oxygen Flow Rate (L/min) 2 Oxygen Delivery Method Room Air Weight: 192 lb 10.944 oz Body Mass Index (BMI) 27.5 Intake and Output for Last 24 Hours 11/13/17 11/14/17 11/15/17 23:59 23:59 23:59 Intake Total 477 / 477 1353 / 1353 1720 / 1720 Output Total 1100 / 1100 1974 / 1974 2600 / 2600 Balance -623 / -623 -622 / -622 -880 / -880 General: Awake, Alert, Oriented x 3 HEENT: PERRL, EOMI, Sclera Non Icteric Neck: Supple, Good ROM, No Lymph Node Enlargement Lungs: Clear to auscultation Cardiovascular: Regular Rhythm, Normal S1, Normal S2, No Murmurs, No Rubs, No Gallops Vascular: No Carotid Bruits, Normal Femoral Pulses, Normal Radial Pulses, Normal Dorsalis Pedal Pulse, Normal Posterior Tibial Pulses Abdomen: Bowel Sounds Present, Soft, Non Tender, No HSM, No Organomegaly Extremities: No Cyanosis, No Clubbing, No edema Neurological: No Focal Motor or Sensory Deficit 11/14/17 08:15: Troponin I 119.000 H* 11/14/17 11:20: Troponin I 89.200 H* 11/14/17 14:20: Troponin I 76.100 H* Rhythm: EKG: ECHO: Stress Test: Cardiac Cath: PCI: CT Surgery: Holter monitor: EPS: PPM: CXR: Chest CT Scan: Medical Necessity - Tobacco Use Smoking Status: Never smoker Tobacco Use: Non-smoker Assessment/Plan 1. Coronary artery disease: The patient presents with acute anterior wall myocardial infarction status post emergent angioplasty and stenting ?2 to the LAD with an excellent result. Patient has nonobstructive disease located in his mid circumflex and 2 tandem areas, I would recommend considering stress echocardiogram in 4 weeks time to evaluate for possible elective intervention. The meantime he will continue aspirin, Brilinta, beta blockers, MARGIE inhibitors, and we will monitor his troponins going forward. His telemetry shows normal sinus rhythm with rare PVCs. Patient did have some ventricular ectopy yesterday with 4 beats of wide-complex rhythm, but no chest pain. Would recommend transfer to PCU for 1 more day completing his 48 hour observation, and my expectation is he will most likely be discharged home tomorrow. 2. Hyperlipidemia: Continue Lipitor therapy. Repeat lipid profile in 6 weeks time. 3. Thank you very much for the opportunity to participate in the cardiac care of the patient. Code Visit Inpatient E&M: 40897 Subs Hosp L2
[2017-11-15] MEDS: Lisinopril 2.5 MG Tablet PO (08:56)
[2017-11-15] MEDS: TICAGRELOR 90 MG TABLET PO ×2 (08:56→21:45)
[2017-11-15] MEDS: Carvedilol 3.125 MG TABLET PO ×2 (08:56→21:45)
[2017-11-15] MEDS: Aspirin E.C. 81 MG Tablet PO (08:56)
--- NOTE | 2017-11-15 10:04 | PN_ITS ---
Patient Problems: Active and Suspected Problems Acute kidney failure (Acute) Subjective: CC: Follow-up on acute myocardial infarction Objective: The patient denies any chest pain , shortness of breath or palpitations. The patient was noted to have nonsustained V. tach on quality assurance monitor final last night. Vitals/I&O's: Vital Signs Temp Pulse Resp BP Pulse Ox 98.1 F 70 16 96/66 95 11/15/17 07:00 11/15/17 07:29 11/15/17 07:00 11/15/17 07:00 11/15/17 07:00 Oxygen Flow Rate (L/min) 2 Oxygen Delivery Method Room Air Weight: 87.4 kg Body Mass Index (BMI) 27.5 Intake and Output for Last 24 Hours 11/13/17 11/14/17 11/15/17 23:59 23:59 23:59 Intake Total 477 / 477 1353 / 1353 1720 / 1720 Output Total 1100 / 1100 1974 / 1974 2600 / 2600 Balance -623 / -623 -622 / -622 -880 / -880 General: Alert, Oriented x3 HEENT: Atraumatic Oral: Moist Mucosa Neck: Supple, No JVD Lungs: Clear to auscultation, Normal air movement, No rhonchi, No wheeze Cardiovascular: Regular rate, Regular Rhythm, Normal S1, Normal S2, No murmurs Abdomen: Bowel Sounds Present, Soft, Non-Distended Extremities: No clubbing, No cyanosis, Capillary Refill Less than 3 Seconds Neurological: Deep Tendon Reflexes 2+/4 and Symmetrical, Neuro grossly intact, Motor Exam 5/5 strength throughout Psych/Mental Status: Normal Affect Laboratory Results 11/14/17 11:20: Troponin I 89.200 H* 11/14/17 14:20: Troponin I 76.100 H* Current Medications Aspirin (Ecotrin) 81 mg PO DAILY@0800 [facility] Last Admin: 11/15/17 08:56 Dose: 81 mg Atorvastatin Calcium (Lipitor) 80 mg PO QHS [facility] Last Admin: 11/14/17 21:13 Dose: 80 mg Atropine Sulfate () 0.5 mg IV UD PRN PRN Reason: HR <50 bpm Carvedilol (Coreg) 3.125 mg PO BID [facility] Last Admin: 11/15/17 08:56 Dose: 3.125 mg Lisinopril (Zestril) 2.5 mg PO DAILY [facility] Last Admin: 11/15/17 08:56 Dose: 2.5 mg Nitroglycerin (Nitrostat) 0.4 mg SUBLINGUAL Q5M PRN PRN Reason: CARDIAC/CHEST PAIN Sodium Chloride () 500 ml IV BOLUS PRN PRN Reason: VASO-VAGAL PROTOCOL Sodium Chloride () 5 - 30 ml IV UD PRN PRN Reason: SALINE FLUSH Last Admin: 11/14/17 10:39 Dose: 10 ml Ticagrelor (Brilinta) 90 mg PO BID [facility] Last Admin: 11/15/17 08:56 Dose: 90 mg Medical Necessity - Tobacco Use Smoking Status: Never smoker Tobacco Use: Non-smoker Assessment/Plan Active and Suspected Problems Acute kidney failure (Acute) 1. Acute STEMI; s/p cardiac cath, aspiration thrombectomy, balloon angioplasty , DELMY in mid LAD, he remains clinically stable and will continue on current cardioprotective medications. 2. Non Sustained V. tach; will continue to monitor cardiac rhythm. 3. Acute kidney injury; stable renal parameters. 4. DVT prophylaxis with SCDs for now. Code Visit Inpatient E&M: 68011 Subs Hosp L2
[2017-11-15] MEDS: Atorvastatin Calcium 80 MG Tablet PO (21:45)
[2017-11-16] VITALS: BP 96/78; PULSE 72; RESP 14; TEMP 37.2; O2SAT 96
[2017-11-16 03:00] VITALS: PULSE 67
[2017-11-16 05:15] VITALS: BP 105/70; PULSE 63; RESP 14; TEMP 37.2; O2SAT 96
[2017-11-16 07:00] VITALS: PULSE 64
[2017-11-16 08:42] VITALS: BP 107/74; PULSE 78; RESP 18; TEMP 36.2; O2SAT 93
[2017-11-16] MEDS: Aspirin E.C. 81 MG Tablet PO (08:46)
[2017-11-16] MEDS: Carvedilol 3.125 MG TABLET PO (08:46)
[2017-11-16] MEDS: Lisinopril 2.5 MG Tablet PO (08:46)
[2017-11-16] MEDS: TICAGRELOR 90 MG TABLET PO (08:46)
--- NOTE | 2017-11-16 09:59 | PCM.PN.CARD ---
Subjectve: Patient doing very well this morning, no 24 hour events. Telemetry is negative. No further chest pain. Objective: Vital Signs Temp Pulse Resp BP Pulse Ox 97.1 F L 78 18 107/74 93 11/16/17 08:42 11/16/17 08:42 11/16/17 08:42 11/16/17 08:42 11/16/17 08:42 Oxygen Flow Rate (L/min) 2 Oxygen Delivery Method Room Air Weight: 192 lb 14.472 oz Body Mass Index (BMI) 27.5 Intake and Output for Last 24 Hours 11/14/17 11/15/17 11/16/17 23:59 23:59 23:59 Intake Total 1353 / 1353 2720 / 2720 960 / 960 Output Total 1974 / 1974 2600 / 2600 1300 / 1300 Balance -622 / -622 120 / 120 -340 / -340 General: Awake, Alert, Oriented x 3 HEENT: PERRL, EOMI, Sclera Non Icteric Neck: Supple, Good ROM, No Lymph Node Enlargement Lungs: Clear to auscultation Cardiovascular: Regular Rhythm, Normal S1, Normal S2, No Murmurs, No Rubs, No Gallops Vascular: No Carotid Bruits, Normal Femoral Pulses, Normal Radial Pulses, Normal Dorsalis Pedal Pulse, Normal Posterior Tibial Pulses Abdomen: Bowel Sounds Present, Soft, Non Tender, No HSM, No Organomegaly Extremities: No Cyanosis, No Clubbing, No edema Neurological: No Focal Motor or Sensory Deficit Rhythm: EKG: ECHO: Stress Test: Cardiac Cath: PCI: CT Surgery: Holter monitor: EPS: PPM: CXR: Chest CT Scan: Medical Necessity - Tobacco Use Smoking Status: Never smoker Tobacco Use: Non-smoker Assessment/Plan 1. Coronary artery disease: The patient presents with acute anterior wall myocardial infarction status post emergent angioplasty and stenting ?2 to the LAD with an excellent result on 11/13/30. Patient has nonobstructive disease located in his mid circumflex and 2 tandem areas, I would recommend considering stress echocardiogram in 3-4 weeks time to evaluate for possible elective intervention. The meantime he will continue aspirin, Brilinta, beta blockers, MARGIE inhibitors, His telemetry shows normal sinus rhythm with no significant ventricular ectopy overnight. 2. Hyperlipidemia: Continue Lipitor therapy. Repeat lipid profile in 6 weeks time. 3. Thank you very much for the opportunity to participate in the cardiac care of the patient. Patient may be discharged home and follow-up with me going forward. Code Visit Inpatient E&M: [id number] Subs Hosp L2
--- NOTE | 2017-11-16 10:12 | PCM.DC ---
- Discharge Diagnoses Current Active Problems: Current Active and Chronic Problems Acute kidney failure (Acute) You will use the following diet at home:: No restrictions, Cardiac Discharge Activity: Return to Normal Activity Allergies/Adverse Reactions: Allergies No Known Allergies Allergy (Verified 11/13/17 16:08) Medications to take at Discharge Aspirin [Aspirin, Baby] 81 mg PO DAILY@0800 11/13/17 Atorvastatin Calcium [Lipitor] 80 mg PO QHS #30 tab 11/16/17 Carvedilol [Coreg (Beta Darian)] 3.125 mg PO BID #60 tab 11/16/17 Lisinopril [Zestril] 2.5 mg PO DAILY #30 tab 11/16/17 Ticagrelor [Brilinta] 90 mg PO BID #60 tab 11/16/17 The following prescriptions were given: Atorvastatin Calcium [Lipitor] 80 mg PO QHS #30 tab Lisinopril [Zestril] 2.5 mg PO DAILY #30 tab Carvedilol [Coreg (Beta Darian)] 3.125 mg PO BID #60 tab Ticagrelor [Brilinta] 90 mg PO BID #60 tab Primary Care Physician: Siva Canales MD [Primary Care Provider] - Within 2 Weeks Proposed Discharge Date: 11/16/17
--- NOTE | 2017-11-16 10:15 | DS.PCM_ITS ---
Discharge Date and Diagnosis - Problem List Patient Problems: Active and Suspected Problems Acute kidney failure (Acute) Date of Admission: 11/13/17 Date of Discharge: 11/16/17 - Primary Discharge Diagnosis Active and Suspected Problems Acute kidney failure (Acute) Hospital Course and Treatment Summary of Care Provided: This is a 67-year-old male who presented with acute anterior wall myocardial infarction , he is status post emergent angioplasty and stenting ?2 to the LAD with an excellent result on 11/13/30. The Patient also has nonobstructive disease located in his mid circumflex and 2 tandem areas, cardiology recommended a stress echocardiogram in 3-4 weeks to evaluate for possible elective intervention. She will be disabled condition symptom-free. 1. Acute STEMI; s/p cardiac cath, aspiration thrombectomy, balloon angioplasty , DELMY in mid LAD x2 , he remains clinically stable and will continue on current cardioprotective medications; aspirin, Brilinta, Lipitor and Coreg. 2. Non Sustained V. tach; we noted nonsustained V. tach on the monitor , we extended his hospital stay for close cardiac monitoring and he continued to remain in sinus rhythm. 3. Acute kidney injury; prerenal, resolved with IV hydration. Physical exam and the time of discharge; 107/74, 85, 97.1, 93% on room air, 18. He was alert and oriented to time place and person. He did not appear to be any form of distress. S1 and S2 heard no murmur or gallop Lung exam was clear to auscultation with no adventitious sounds. Abdomen was soft nontender with normal bowel sounds. extremity exam did not reveal any edema, palpable pulses bilaterally. Neurologic exam was grossly intact. Discharge Diet: No Restrictions Discharge Activity: Return to Normal Activity Home Medications: Medications to take at Discharge Aspirin [Aspirin, Baby] 81 mg PO DAILY@0800 11/13/17 Atorvastatin Calcium [Lipitor] 80 mg PO QHS #30 tab 11/16/17 Carvedilol [Coreg (Beta Darian)] 3.125 mg PO BID #60 tab 11/16/17 Lisinopril [Zestril] 2.5 mg PO DAILY #30 tab 11/16/17 Ticagrelor [Brilinta] 90 mg PO BID #60 tab 11/16/17 Following Prescrptions Were Given to Patient: Atorvastatin Calcium [Lipitor] 80 mg PO QHS #30 tab Lisinopril [Zestril] 2.5 mg PO DAILY #30 tab Carvedilol [Coreg (Beta Darian)] 3.125 mg PO BID #60 tab Ticagrelor [Brilinta] 90 mg PO BID #60 tab Primary Care Physician: Siva Canales MD [Primary Care Provider] - Within 2 Weeks Medical Necessity - Tobacco Use Smoking Status: Never smoker Tobacco Use: Non-smoker Meaningful Use Info Meaningful Use Diagnoses (Choose all that apply): None applicable Code Visit Inpatient E&M: 34260 Disch Hosp
== END 2017-11-16 11:00 | disposition home or self-care (01) | DRG 247 ==
LOC: ED 16:07 → ICU 16:55
PROVIDERS: Internal Medicine Cardiovascular Disease; Admitting Provider Internal Medicine; Emergency Provider Emergency Medicine; Family Provider Family Medicine; PCP Family Medicine; Visit Provider Internal Medicine
DX: I21.02 ST elevation (STEMI) myocardial infarction involving left anterior descending coronary artery (principal); N17.9 Acute kidney failure, unspecified; I47.2 Ventricular tachycardia; E87.0 Hyperosmolality and hypernatremia; I25.10 Atherosclerotic heart disease of native coronary artery without angina pectoris; Z79.82 Long term (current) use of aspirin; E78.5 Hyperlipidemia, unspecified
CPT/HCPCS: 71045; 80048; 80053; 80061; 83036; 84484; 85025; 85027; 85347; 85610; 85730; 87641; 92941; 93005; 93306; 93458; 99284; J7030; Q9967; A4216; C1725; C1757; C1769; C1874; C1887; C1894; C9606; J0583; J1327

== ENCOUNTER → 2017-12-11 12:55 | Outpatient (CLI) | payer OTHER, SELFPAY ==
--- NOTE | 2017-12-11 13:04 | PCM.CR.ITP ---
General Information - General Information Admitting Diagnosis: STEMI - Education/Goals Barriers to Learning: None Individual Counseling: Initial Assessment: Abnormal Cholesterol Levels, Overweight/Obesity Cardiac Rehabilitation Goals: 1. Maintain the individual as the primary focus of care. 2. To improve the patient's quality of life. 3. Identification of cardiac risk factors and provide cardiac risk factor management. 4. Enhance the psychosocial status of the patient. 5. Reconditioning enough to allow the patient to resume customary activities. 6. Control symptoms of cardiac disease Scale for measuring improvement of personal goals: Enter appropriate number in Comments. 2 = Unchanged. 3 = Slightly Better. 4 = Moderate Improvement. 5 = Met my Goal Personal Goals: Initial Assessment: Improve management of stress and emotions, Improve energy level, Participate in home exercise program, Get back to work, or to resume activities faster, Improve knowledge of cardiac disease, Improve muscle strength and endurance, Improve diet and eating habits (eat healthier), Control risk factors (learn risk factor modification) Exercise - Initial Assessment - Visit Date of Eval: 12/11/17 - Stages of Change Stages of Change:: Action - Exercise Prescription Mode:: Treadmill, Biodyne, Rower, Airdyne, NuStep - Hypertension Do any of the following apply?: No - Intervention Home Exercise/Activity Goal:: Moderate Exercise 30 min/day x 5 days/wk - Education Goals:: Warm-up, RPE KARLOS Scale, S/S, Safe Exercise, Self-Monitoring - Exercise Program Goals Exercise Program Goals: Aerobic Activity >30 min Nutrition - Initial Assessment - Program Goals Nutrition Program Goals: LDL <70. Total Cholesterol <200. HDL >45. Triglycerides <150. HgbA1C <7%. BMI <25 - Visit Date of Assessment:: 12/11/17 - Stages of Change Stages of Change:: Action - Diabetes Diabetes:: No - Weight Management Height: 1.79 m Weight:: 85.275 kg Weight Goal (kg):: 78.018 kg Body Fat %:: 26.6 Goal % Body Fat:: 24 - Intervention Referral to dietitian:: Yes Referral to Diabetic Clinic:: No Will attend diet classes:: Yes - Education Gave educational materials for:: Healthy eating Tobacco - Initial Assessment - Program Goals Tobacco Program Goals: Complete smoking cessation. Attend education classes. Improve Knowledge Test score - Stage of Change Stages of Change:: Maintenance - Learning Barriers Learning Barriers: Ready to Learn Total Score:: 15 - Family Support Do you have family support?: Yes - Tobacco Use Tobacco Use: Non-smoker Do you use smokeless tobacco?: No - Intervention Education Schedule Given:: Yes - Education Gave educational material for:: Coronary artery disease, Risk factors, Sexuality, Medical compliance, Cardiac A&P, Angina signs & symptoms Psychosocial - Initial Assess - Target Goals Target Goals: Assess presence or absence of depression. Using a valid screening tool, maximizes coping skills. Positive support system - Stages of Change Stages of Change:: Action - Psychosocial Test Tool Used:: HANDS Depression Questionnaire Self-reported stress:: no Tests Completed: Mood Scale Test - 5 Total Mood Screening Score:: 5 Self-Efficacy Score:: 5 - Intervention PS - Interventions: Yes Attend Stress Management Classes, Yes Uses Stress Management Skills, No Referral to Mental Health, No Referral to [facility] Case Management, No Referral to Physician - Education Gave educational materials for:: Coping techniques, Signs & symptoms of depression, Stress management, Relaxation techniques - Patient/Program Goal Preventative Medication(s):: Aspirin, MARGIE inhibitor, Clopidogrel, Beta angel, Statin/lipid - Assistive Devices Assistive Devices:: None Fall Risk Assessed:: Yes Patient Health Questionnaire Initial Assessment 1. Little interest or pleasure in doing things: Several days 2. Feeling down, depressed, or hopeless: Several days 3. Trouble falling or staying asleep, or sleeping too much: Not at all 4. Feeling tired or having little energy: Several days 5. Poor appetite or overeating: Not at all 6. Feeling bad about yourself -- or that you are a failure or have let yourself or your family down: Several days 7. Trouble concentrating on things, such as reading the newspaper or watching television: Not at all 8. Moving or speaking so slowly that other people could have noticed. Or the opposite - being so fidgety or restless that you have been moving around a lot more than usual: Several days 9. Thoughts that you would be better off , or of hurting yourself in some way: Not at all How difficult have these problems made it for you to do your work, take care of things at home, or get along with other people?: Somewhat difficult Total Score: 5 FLORINA-Q SV Test - Statements CAD is a disease of the arteries in the heart: False Examples of risk factors for heart disease: True Angina is chest pain or discomfort: True The benefits of resistance training include: True Eating more meat and dairy products: False Anti-platelet medications such as aspirin are important: True The only effective way to manage stress: False An exercise warm-up slowly increases heart rate: True Prepared, processed foods usually have high sodium: True Depression is common after a heart attack: True The statin medications lower cholesterol: True To control blood pressure, lower the amount of sodium: True If someone gets chest discomfort during walking: False Transfats are partially hydrogenated vegetable oils: False Sleep apnea that is not treated increases the risk: I Don't Know To control cholesterol, one should become a vegetarian: True Someone knows if he/she is exercising at the right level: I Don't Know Diabetes cannot be prevented with exercise & health eating: True Stress is a large risk for heart attack: True A diet that can help lower blood pressure is rich in: True - Total Score Total Correct Responses: 15 Self-Efficacy Initial Assessment We would like to know how confident you are in doing certain activities. Please select your confidence level for:: Select your confidence level for the following using the scale 1-10 where 1 is not at all confident and 10 is totally confident. Your score is the average of all 6 responses. Fatigue: How confident are you that you can keep the fatigue caused by your disease from interfering with the things you want to do? Select Number: 5 Physical Discomfort or Pain: How confident are you that you can keep the physical discomfort or pain of your disease from interfering with the things you want to do? Select Number: 6 Emotional Distress: How confident are you that you can keep the emotional distress caused by your disease from interfering with the things you want to do? Select Number: 5 Other Symptoms or Health Problems: How confident are you that you can keep other symptoms or health problems from interfering with the things you want to do? Select Number: 5 Different Tasks and Activities: How confident are you that you can do the different tasks and activities needed to manage your health condition so as to reduce your need to see a doctor? Select Number: 7 Medication: How confident are you that you can do things other than just taking medication to reduce how much your illness affects your everyday life? Select Number: 6 Total Score:: 5 Nutrition Survey - Nutrition Survey Instructions Scoring Instructions: Scoring is as follows: Yes = 1 points. No = 0 point. Patient score that is >/=12 is considered to be at potential nutritional risk and could benefit from a referral to a registered dietitian. - Nutrition Survey Initial Have you lost >10 lbs over the past 2 months without trying?: Yes Are you following a special diet at home for diabetes, low fat, or low salt?: Yes Are you interested in meeting with a dietitian for help understanding your diet?: Yes Do you eat less than 3 meals a day?: No Do you eat fatty meats (reynolds, sausage, ribs, etc), fried foods, desserts, large amounts of salad dressings, margarine, butter, or cheese most days?: No Do you have food allergies? [Enter types in comment field]: No Do you eat in restaurants more than 3 times a week?: No Do you season food with salt, seasoning salt, or garlic salt?: No Do you used canned, boxed, frozen meals, or soups, seasoning packets?: No Total Score:: 3
--- NOTE | 2017-12-11 13:05 | PCM.CR.HP2 ---
CR - History & Physical - General Arrival date:: 12/11/17 Arrival time:: 13:05 Date of Referral:: 12/11/17 Date of CR Evaluation:: 12/11/17 Referring Physician: Dr. Jonel Hernandez Primary Diagnosis: STEMI - History of Present Cardiac Event Onset Date: Enter Onset Date of cardiac illnesses in Comment field below Current stable Angina Pectoris:: Yes - 11/13/17 STEMI Acute Myocardial Infarction within 12 months:: Yes - 11/13/17 STEMI Coronary Artery Bypass Graft:: No Heart valve replacement or repair:: No PTCA or coronary stenting:: Yes Heart or Heart-Lung Transplant:: No Heart Failure EF <35%:: No Type of Symptoms:: Chest tightness, left arm numbness, diaphoresis. Interventions with present event:: heart cath Were there any complications?: bradycardia, VT, acute kidney failure - Medications Home Medications: Ambulatory Orders Medication Instructions Recorded Aspirin [Aspirin, Baby] 81 mg PO DAILY@0800 11/13/17 Atorvastatin Calcium [Lipitor] 80 mg PO QHS #30 tab 11/16/17 Carvedilol [Coreg (Beta Darian)] 3.125 mg PO BID #60 tab 11/16/17 Lisinopril [Zestril] 2.5 mg PO DAILY #30 tab 11/16/17 Ticagrelor [Brilinta] 90 mg PO BID #60 tab 11/16/17 - Allergies Allergies/Adverse Reactions: Allergies No Known Allergies Allergy (Verified 12/05/17 15:13) - Sleep Disorder Evaluation Hx of Sleep Apnea: No Do you snore loudly (louder than talking or can be heard through closed doors)?: Yes Do you often feel tired/ fatigued/ sleepy during daytime?: Yes Has anyone observed you stop breathing during sleep?: Yes History of Hypertension (for STOP score): No STOP Results: Positive Advanced Directives - Advanced Directives Power of Hand Former Helper: No Living Will: No Advance Directives Information Provided: Yes Advance Directives on File: No DNR Order?:: No Past Medical History - Past Medical Illness Medical History: Past Medical History (Last Reviewed 12/05/17 @ 15:13 by Kellie Workman) Ischemic cardiomyopathy (Acute) I25.5 Atherosclerosis of coronary artery of [place] heart without angina pectoris (Acute) I25.10 PCI-DELMY-Mid Lad w/ 3.0 x 38 mm Resolute Stent and Cks-NMD-Isyapg of the D3 w/ 3.0 x 22 mm Resolute stent 11/13/17 Acute anterior wall HI (Acute) I21.09 STEMI (ST elevation myocardial infarction) (Acute) I21.3 - Past Surgical History Surgical History: Past Surgical History (Last Reviewed 12/05/17 @ 15:13 by Kellie Workman) History of coronary artery stent placement (Acute) Onset Date: 11/13/17 Z95.5 PCI-DELMY-Mid Lad w/ 3.0 x 38 mm Resolute Stent and Eha-YCO-Tufycj of the D3 w/ 3.0 x 22 mm Resolute stent 11/13/17 History of appendectomy Z90.49 Surgical History: appendectomy, - - Trigger finger, right finger surgery 1997 - Family History Summary Family History: Family History (Last Reviewed 12/05/17 @ 15:13 by Kellie Workman) Mother Heart disease CVA (cerebral vascular accident) Father Heart disease CVA (cerebral vascular accident) Other Myocardial infarction Social History - Smoking History Smoking Status: Never smoker - Alcohol Use Alcohol Usage: No - Substance Abuse Hx Substance Use: No - Occupation Occupation (List type of work in comments):: Employed - [employer] - Hobbies, Recreation, Social Activities Hobbies: Other - grandchildren, hunting, tractor collection. Recreational Activities: I am able to engage in most, but not all activities Social Environment - Status Marital Status: - Current Living Arrangements Living Environment:: Spouse - Children How many children do you have?: 4 Do any of your children live nearby?: Yes - Safety Do you feel safe in your surroundings?: Yes - Assistance Do you need any assistance at home?: no Review of Systems - Review of Systems Hints: Right click = Denies ([place]). Left click = Reports ([place]) Review of Present Symptoms: Reports: Shortness of Breath with Exertion - slight sob today, possibly some anxiety., Dizziness/Lightheadedness - some at advent on November 26 at advent., Fatigue - at times, Appetite - Normal, Appetite - Special Diet - Cardiac diet. Denies: Shortness of Breath at Rest, PVD, Operative Discomfort, Angina, Wound Healing, Heart Arrhythmia/Irregularities, Sleep - Normal, Sexual Changes - Pain Is Patient Pain Free?: Yes Pain Location: none Risk Factor Assessment - Chief Complaint Chief Complaint: To learn more about Cardiac disease and get back to normal activity. - Pulse Pulse Rate: 54 Pulse Rhythm: Regular - Hypertension Blood Pressure Sitting - Right Arm: 108/80 Blood Pressure Sitting - Left Arm: 104/76 - Diabetes Nutrition Referral for Diabetes: No - Obesity Height: 1.79 m Weight:: 85.275 kg Weight in Pounds: 188.0 lbs Weight Source: Standing Scale Body Mass Index (BMI): 26.6 Desired Body Weight: 172 Realistic Weight Goal (Loss of 1-2 lbs/week): 172 Nutritional Referral for Obesity: Yes - Risk Stratification Risk Guidelines: Lowest Risk: Risk Factor for Smoking, Risk Factor for Dyslipidemia, Risk Factor for Diabetes, Risk Factor for Hypertension, Risk Factor for Sedentary Lifestyle, Risk Factor for Depression, Moderate Risk: Risk Factor for Obesity - For Smoking Smoking Risk Guidelines: Smoking Low Risk: None or quit greater than 6 months ago. Smoking Moderate Risk: Smoker or quit 6 months or less ago. Smoking High Risk: Smoker - For Dyslipidemia Dyslipidemia Risk Guidelines: Low Risk: Moderate Risk: High Risk: 15-25% fat 25.1-29% fat >/= 30% fat. <7% sat fat 7-9% sat fat >9% sat fat. <150 mg chol 150-299 mg chol >/= 300 mg chol. LDL <100 LDL 100-129 LDL >/= 130. Chol/HDL ratio <5.0 Chol/HDL ratio 5.0-6.0 Chol/HDL ratio >6.0. Triglycerides <100 Triglycerides 100-149 Triglycerides >/= 150 - For Diabetes Mellitus Diabetes Risk Guidelines: Diabetes Low Risk: HgA1c <6.5% and/or FBG <120. Diabetes Moderate Risk: HgA1c 6.6-7.9% and/or FBG 120-180. Diabetes High Risk: HgA1c >/= 8% and/or FBG >180 - For Obesity/Overweight Obesity/Overweight Risk Guidelines: Obesity Low Risk: BMI <25.0. Obesity Moderate Risk: BMI 25-29.9. Obesity High Risk: BMI >/= 30.0 - For Hypertension Hypertension Risk Guidelines: Hypertension Low Risk: Systolic <120 and Diastolic <80. Hypertension Moderate Risk: Systolic 120-139 and Diastolic 80-89. Hypertension High Risk: Systolic >/= 140 and Diastolic >/= 90 - For Sedentary Lifestyle Sedentary Lifestyle Risk Guidelines: Sedentary Lifestyle Low Risk: >/= 1,500 kcal/week. Sedentary Lifestyle Moderate Risk: 700-1,499 kcal/week. Sedentary Lifestyle High Risk: < 700 kcal/week - For Depression Depression Risk Guidelines: Depression Low Risk: Not clinically depressed. Depression Moderate Risk: Mildly depressed. Depression High Risk: Clinically depressed - Family History Family History: Family History (Last Reviewed 12/05/17 @ 15:13 by Kellie Workman) Mother Heart disease CVA (cerebral vascular accident) Father Heart disease CVA (cerebral vascular accident) Other Myocardial infarction Motivation - Motivation to Participate On a scale of 1 to 10, how prepared are you to commit to attending program?: 10
--- NOTE | 2017-12-11 13:26 | CR.HP_ITS ---
CR - History & Physical - General Arrival date:: 12/11/17 Arrival time:: 13:05 Date of Referral:: 12/11/17 Date of CR Evaluation:: 12/11/17 Referring Physician: Dr. Jonel Hernandez Primary Diagnosis: STEMI - History of Present Cardiac Event Onset Date: Enter Onset Date of cardiac illnesses in Comment field below Current stable Angina Pectoris:: Yes - 11/13/17 STEMI Acute Myocardial Infarction within 12 months:: Yes - 11/13/17 STEMI Coronary Artery Bypass Graft:: No Heart valve replacement or repair:: No PTCA or coronary stenting:: Yes Heart or Heart-Lung Transplant:: No Heart Failure EF <35%:: No Type of Symptoms:: Chest tightness, left arm numbness, diaphoresis. Interventions with present event:: heart cath Were there any complications?: bradycardia, VT, acute kidney failure - Medications Home Medications: Ambulatory Orders Medication Instructions Recorded Aspirin [Aspirin, Baby] 81 mg PO DAILY@0800 11/13/17 Atorvastatin Calcium [Lipitor] 80 mg PO QHS #30 tab 11/16/17 Carvedilol [Coreg (Beta Darian)] 3.125 mg PO BID #60 tab 11/16/17 Lisinopril [Zestril] 2.5 mg PO DAILY #30 tab 11/16/17 Ticagrelor [Brilinta] 90 mg PO BID #60 tab 11/16/17 - Allergies Allergies/Adverse Reactions: Allergies No Known Allergies Allergy (Verified 12/05/17 15:13) - Sleep Disorder Evaluation Hx of Sleep Apnea: No Do you snore loudly (louder than talking or can be heard through closed doors)? : Yes Do you often feel tired/ fatigued/ sleepy during daytime?: Yes Has anyone observed you stop breathing during sleep?: Yes History of Hypertension (for STOP score): No STOP Results: Positive Advanced Directives - Advanced Directives Power of Supervisor Television Chassis Repair: No Living Will: No Advance Directives Information Provided: Yes Advance Directives on File: No DNR Order?:: No Past Medical History - Past Medical Illness Medical History: Past Medical History (Last Reviewed 12/05/17 @ 15:13 by Kellie Workman) Ischemic cardiomyopathy (Acute) I25.5 Atherosclerosis of coronary artery of solomon heart without angina pectoris ( Acute) I25.10 PCI-DELMY-Mid Lad w/ 3.0 x 38 mm Resolute Stent and Nod-WBK-Hpozwt of the D3 w/ 3.0 x 22 mm Resolute stent 11/13/17 Acute anterior wall NM (Acute) I21.09 STEMI (ST elevation myocardial infarction) (Acute) I21.3 - Past Surgical History Surgical History: Past Surgical History (Last Reviewed 12/05/17 @ 15:13 by Kellie Workman) History of coronary artery stent placement (Acute) Onset Date: 11/13/17 Z95.5 PCI-DELMY-Mid Lad w/ 3.0 x 38 mm Resolute Stent and Iqt-PNO-Jypijz of the D3 w/ 3.0 x 22 mm Resolute stent 11/13/17 History of appendectomy Z90.49 Surgical History: appendectomy, - - Trigger finger, right finger surgery 1997 - Family History Summary Family History: Family History (Last Reviewed 12/05/17 @ 15:13 by Kellie Workman) Mother Heart disease CVA (cerebral vascular accident) Father Heart disease CVA (cerebral vascular accident) Other Myocardial infarction Social History - Smoking History Smoking Status: Never smoker - Alcohol Use Alcohol Usage: No - Substance Abuse Hx Substance Use: No - Occupation Occupation (List type of work in comments):: Employed - [employer] - Hobbies, Recreation, Social Activities Hobbies: Other - grandchildren, hunting, tractor collection. Recreational Activities: I am able to engage in most, but not all activities Social Environment - Status Marital Status: - Current Living Arrangements Living Environment:: Spouse - Children How many children do you have?: 4 Do any of your children live nearby?: Yes - Safety Do you feel safe in your surroundings?: Yes - Assistance Do you need any assistance at home?: no Review of Systems - Review of Systems Hints: Right click = Denies ([place]ash). Left click = Reports ([place]) Review of Present Symptoms: Reports: Shortness of Breath with Exertion - slight sob today, possibly some anxiety., Dizziness/Lightheadedness - some at [facility] on November 26 at [facility]., Fatigue - at times, Appetite - Normal, Appetite - Special Diet - Cardiac diet. Denies: Shortness of Breath at Rest, PVD, Operative Discomfort, Angina, Wound Healing, Heart Arrhythmia/Irregularities, Sleep - Normal, Sexual Changes - Pain Is Patient Pain Free?: Yes Pain Location: none Risk Factor Assessment - Chief Complaint Chief Complaint: To learn more about Cardiac disease and get back to normal activity. - Pulse Pulse Rate: 54 Pulse Rhythm: Regular - Hypertension Blood Pressure Sitting - Right Arm: 108/80 Blood Pressure Sitting - Left Arm: 104/76 - Diabetes Nutrition Referral for Diabetes: No - Obesity Height: 1.79 m Weight:: 85.275 kg Weight in Pounds: 188.0 lbs Weight Source: Standing Scale Body Mass Index (BMI): 26.6 Desired Body Weight: 172 Realistic Weight Goal (Loss of 1-2 lbs/week): 172 Nutritional Referral for Obesity: Yes - Risk Stratification Risk Guidelines: Lowest Risk: Risk Factor for Smoking, Risk Factor for Dyslipidemia, Risk Factor for Diabetes, Risk Factor for Hypertension, Risk Factor for Sedentary Lifestyle, Risk Factor for Depression, Moderate Risk: Risk Factor for Obesity - For Smoking Smoking Risk Guidelines: Smoking Low Risk: None or quit greater than 6 months ago. Smoking Moderate Risk: Smoker or quit 6 months or less ago. Smoking High Risk: Smoker - For Dyslipidemia Dyslipidemia Risk Guidelines: Low Risk: Moderate Risk: High Risk: 15-25% fat 25.1-29% fat >/= 30% fat. <7% sat fat 7-9% sat fat >9% sat fat. <150 mg chol 150-299 mg chol >/= 300 mg chol. LDL <100 LDL 100-129 LDL >/= 130. Chol/HDL ratio <5.0 Chol/HDL ratio 5.0-6.0 Chol/HDL ratio >6.0. Triglycerides <100 Triglycerides 100-149 Triglycerides >/= 150 - For Diabetes Mellitus Diabetes Risk Guidelines: Diabetes Low Risk: HgA1c <6.5% and/or FBG <120. Diabetes Moderate Risk: HgA1c 6.6-7.9% and/or FBG 120-180. Diabetes High Risk: HgA1c >/= 8% and/or FBG >180 - For Obesity/Overweight Obesity/Overweight Risk Guidelines: Obesity Low Risk: BMI <25.0. Obesity Moderate Risk: BMI 25-29.9. Obesity High Risk: BMI >/= 30.0 - For Hypertension Hypertension Risk Guidelines: Hypertension Low Risk: Systolic <120 and Diastolic <80. Hypertension Moderate Risk: Systolic 120-139 and Diastolic 80-89. Hypertension High Risk: Systolic >/= 140 and Diastolic >/= 90 - For Sedentary Lifestyle Sedentary Lifestyle Risk Guidelines: Sedentary Lifestyle Low Risk: >/= 1 ,500 kcal/week. Sedentary Lifestyle Moderate Risk: 700-1,499 kcal/week. Sedentary Lifestyle High Risk: < 700 kcal/week - For Depression Depression Risk Guidelines: Depression Low Risk: Not clinically depressed. Depression Moderate Risk: Mildly depressed. Depression High Risk: Clinically depressed - Family History Family History: Family History (Last Reviewed 12/05/17 @ 15:13 by Kellie Workman) Mother Heart disease CVA (cerebral vascular accident) Father Heart disease CVA (cerebral vascular accident) Other Myocardial infarction Motivation - Motivation to Participate On a scale of 1 to 10, how prepared are you to commit to attending program?: 10
[2017-12-11 14:10] VITALS: BP 104/76; BP 108/80; PULSE 54; BMI 26.6
== END ==
PROVIDERS: Family Provider Family Medicine; PCP Family Medicine; Visit Provider Internal Medicine Cardiovascular Disease
DX: Z95.5 Presence of coronary angioplasty implant and graft (principal); I25.10 Atherosclerotic heart disease of native coronary artery without angina pectoris; I25.5 Ischemic cardiomyopathy; I25.2 Old myocardial infarction

== ENCOUNTER 2017-12-15 08:00 | Outpatient (RCR) | payer OTHER, SELFPAY | END 2017-12-16 23:59 | LOC: CR 08:00 | PROVIDERS: Family Provider Family Medicine; PCP Family Medicine; Visit Provider Internal Medicine Cardiovascular Disease | DX: I25.10 Atherosclerotic heart disease of native coronary artery without angina pectoris (principal); I21.09 ST elevation (STEMI) myocardial infarction involving other coronary artery of anterior wall; I21.3 ST elevation (STEMI) myocardial infarction of unspecified site; Z95.5 Presence of coronary angioplasty implant and graft | CPT/HCPCS: 93798 ==

== ENCOUNTER → 2017-12-21 07:39 | Outpatient (CLI) | payer OTHER, SELFPAY ==
[2017-12-21 08:58] LABS: AST(SGOT) 21 U/L (15-37); Alanine Aminotransfer ALT/SGPT 35 U/L (16-61); Albumin, Serum 3.7 g/dL (3.2-5.0); Alkaline Phosphatase 85 U/L (45-117); Bilirubin, Direct 0.15 mg/dL (0.00-0.30); Globulin 3.3 g/dL (2.2-4.2)
[2017-12-21 08:59] LABS: Cholesterol 89 mg/dL (200); High Density Lipoprotein 34 mg/dL; Triglycerides 70 mg/dL; Very Low Density Lipoprotein 14 mg/dL (5-40)
== END ==
PROVIDERS: Family Provider Family Medicine; PCP Family Medicine; Visit Provider Internal Medicine Cardiovascular Disease
DX: I25.10 Atherosclerotic heart disease of native coronary artery without angina pectoris (principal); I25.2 Old myocardial infarction; I25.5 Ischemic cardiomyopathy
CPT/HCPCS: 36415; 80061; 80076

== ENCOUNTER 2018-01-15 08:00 | Outpatient (RCR) | payer OTHER, SELFPAY ==
--- NOTE | 2018-01-10 13:16 | PCM.CR.ITP ---
Exercise - 30-day Assessment - Visit Date of Eval: 01/10/18 Session #:: 11 - Stages of Change Stages of Change:: Action - Exercise Prescription Mode:: Treadmill, Rower, Airdyne Frequency (x/week): 3 Duration:: 30 METs - Progression: 0.5-1 MET as tolerated: 6 Target Heart Rate:: 122-130 - Hypertension Resting Blood Pressure:: 100/60 Peak Exercise Blood Pressure:: 144/72 Medication Changes:: No - Intervention Home Exercise/Activity Goal:: Moderate Exercise 30 min/day x 5 days/wk - Education Goals:: Warm-up, RPE KARLOS Scale, S/S, Safe Exercise, Self-Monitoring - Exercise Program Goals Exercise Program Goals: Aerobic Activity >30 min Nutrition - 30-Day Assessment - Program Goals Nutrition Program Goals: LDL <70. Total Cholesterol <200. HDL >45. Triglycerides <150. HgbA1C <7%. BMI <25 - Visit Date of Eval: 01/10/18 - Stages of Change Stages of Change:: Action - Lipids Has the patient seen the dietitian?: No - Diabetes Diabetes:: No - Weight Management Weight:: 182 lb - decreased 6# - Intervention Referral to dietitian:: No Referral to Diabetic Clinic:: No Will attend diet classes:: Yes - Education Attended class for:: Healthy eating Tobacco - Initial Assessment - Program Goals Tobacco Program Goals: Complete smoking cessation. Attend education classes. Improve Knowledge Test score - Learning Barriers Learning Barriers: Ready to Learn Tobacco - 30-Day Assessment - Program Goals Tobacco Program Goals: Complete smoking cessation. Attend education classes. Improve Knowledge Test score - Stage of Change Stages of Change:: Action - Learning Barriers Learning Barriers: Participates in education - Family Support Do you have family support?: Yes - Tobacco Use Tobacco Use: Non-smoker Do you use smokeless tobacco?: No - Intervention Smoking Cessation Referral:: No Individual Education/Counseling:: No Education Schedule Given:: Yes - Education Attended class for:: Coronary artery disease, Risk factors, Sexuality, Medical compliance, Cardiac A&P, Angina signs & symptoms Psychosocial - Initial Assess - Target Goals Target Goals: Assess presence or absence of depression. Using a valid screening tool, maximizes coping skills. Positive support system - Psychosocial Test Tool Used:: HANDS Depression Questionnaire - Assistive Devices Fall Risk Assessed:: Yes Psychosocial - 30-Day Assess - Target Goals Target Goals: Assess presence or absence of depression. Using a valid screening tool, maximizes coping skills. Positive support system - Stages of Change Stages of Change:: Action - Psychosocial Test Tool Used:: HANDS Depression Questionnaire - Intervention PS - Interventions: Yes Attend Stress Management Classes, Yes Uses Stress Management Skills, No Referral to Mental Health, No Referral to [facility] Case Management, No Referral to Physician - Education Attended classes for:: Coping techniques, Signs & symptoms of depression, Stress management, Relaxation techniques - Patient/Program Goal Preventative Medication(s):: Aspirin, Clopidogrel, Statin/lipid - Assistive Devices Assistive Devices:: None Fall Risk Assessed:: Yes Patient Health Questionnaire 30-Day Re-eval Assessment 1. Little interest or pleasure in doing things: Not at all 2. Feeling down, depressed, or hopeless: Not at all 3. Trouble falling or staying asleep, or sleeping too much: Not at all 4. Feeling tired or having little energy: Not at all 5. Poor appetite or overeating: Not at all 6. Feeling bad about yourself -- or that you are a failure or have let yourself or your family down: Not at all 7. Trouble concentrating on things, such as reading the newspaper or watching television: Not at all 8. Moving or speaking so slowly that other people could have noticed. Or the opposite - being so fidgety or restless that you have been moving around a lot more than usual: Not at all 9. Thoughts that you would be better off , or of hurting yourself in some way: Not at all How difficult have these problems made it for you to do your work, take care of things at home, or get along with other people?: Not difficult at all Total Score: 0 Self-Efficacy 30-Day Re-eval Assessment We would like to know how confident you are in doing certain activities. Please select your confidence level for:: Select your confidence level for the following using the scale 1-10 where 1 is not at all confident and 10 is totally confident. Your score is the average of all 6 responses. Fatigue: How confident are you that you can keep the fatigue caused by your disease from interfering with the things you want to do? Select Number: 10 Physical Discomfort or Pain: How confident are you that you can keep the physical discomfort or pain of your disease from interfering with the things you want to do? Select Number: 10 Emotional Distress: How confident are you that you can keep the emotional distress caused by your disease from interfering with the things you want to do? Select Number: 10 Other Symptoms or Health Problems: How confident are you that you can keep other symptoms or health problems from interfering with the things you want to do? Select Number: 10 Different Tasks and Activities: How confident are you that you can do the different tasks and activities needed to manage your health condition so as to reduce your need to see a doctor? Select Number: 10 Medication: How confident are you that you can do things other than just taking medication to reduce how much your illness affects your everyday life? Select Number: 10 Total Score:: 10
[2018-01-10 13:19] VITALS: BP 100/60; BP 144/72
== END 2018-01-16 23:59 ==
LOC: CR 08:00
PROVIDERS: Family Provider Family Medicine; PCP Family Medicine; Visit Provider Internal Medicine Cardiovascular Disease
DX: I25.10 Atherosclerotic heart disease of native coronary artery without angina pectoris (principal); I21.09 ST elevation (STEMI) myocardial infarction involving other coronary artery of anterior wall; I21.3 ST elevation (STEMI) myocardial infarction of unspecified site; Z95.5 Presence of coronary angioplasty implant and graft
CPT/HCPCS: 93798

== ENCOUNTER 2018-02-16 08:00 | Outpatient (RCR) | payer OTHER, SELFPAY ==
[2018-01-17 01:12] VITALS: BP 100/60; BP 144/72
[2018-02-09 15:07] VITALS: BP 104/66; BP 140/74
--- NOTE | 2018-02-09 15:07 | CR.ITP_ITS ---
General Information - General Information Admitting Diagnosis: PCI with coronary artery stenting - Education/Goals Cardiac Rehabilitation Goals: 1. Maintain the individual as the primary focus of care. 2. To improve the patient's quality of life. 3. Identification of cardiac risk factors and provide cardiac risk factor management. 4. Enhance the psychosocial status of the patient. 5. Reconditioning enough to allow the patient to resume customary activities. 6. Control symptoms of cardiac disease Scale for measuring improvement of personal goals: Enter appropriate number in Comments. 2 = Unchanged. 3 = Slightly Better. 4 = Moderate Improvement. 5 = Met my Goal Exercise - 60-Day Assessment - Visit Date of Eval: 02/09/18 Session #:: 23 - Stages of Change Stages of Change:: Action - Exercise Prescription Mode:: Treadmill, Rower, Airdyne Frequency (x/week): 3 Duration:: 30 METs: 9 Target Heart Rate:: 122-130 Max HR 129 - Hypertension Resting Blood Pressure:: 104/66 Peak Exercise Blood Pressure:: 140/74 - Intervention Home Exercise/Activity Goal:: Sitting Time <3 hrs/day - Education Goals:: Warm-up, RPE KARLOS Scale, S/S, Safe Exercise, Self-Monitoring - Exercise Program Goals Exercise Program Goals: Aerobic Activity >30 min, B/P <130/80 Nutrition - 60-Day Assessment - Program Goals Nutrition Program Goals: LDL <70. Total Cholesterol <200. HDL >45. Triglycerides <150. HgbA1C <7%. BMI <25 - Visit Date of Eval: 02/09/18 - Stages of Change Stages of Change:: Action - Lipids Has the patient seen the dietitian?: No - Diabetes Diabetes:: No - Intervention Referral to dietitian:: No Referral to Diabetic Clinic:: No Will attend diet classes:: Yes - Education Attended class for:: Signs & symptoms of hypoglycemia, Signs & symptoms of hyperglycemia, Relate diabetes to coronary artery disease, Healthy eating Tobacco - Initial Assessment - Program Goals Tobacco Program Goals: Complete smoking cessation. Attend education classes. Improve Knowledge Test score - Learning Barriers Learning Barriers: Ready to Learn Tobacco - 60-Day Assessment - Program Goals Tobacco Program Goals: Complete smoking cessation. Attend education classes. Improve Knowledge Test score - Stage of Change Stages of Change:: Action - Learning Barriers Learning Barriers: Participates in education - Family Support Do you have family support?: Yes - Tobacco Use Tobacco Use: Non-smoker Do you use smokeless tobacco?: No - Intervention Smoking Cessation Referral:: No Individual Education/Counseling:: No Education Schedule Given:: Yes - Education Attended class for:: Tobacco triggers, Coronary artery disease, Risk factors, Sexuality, Medical compliance, Cardiac A&P, Angina signs & symptoms Psychosocial - 60-Day Assess - Target Goals Target Goals: Assess presence or absence of depression. Using a valid screening tool, maximizes coping skills. Positive support system - Stages of Change Stages of Change:: Action - Psychosocial Test Tool Used:: HANDS Depression Questionnaire - Intervention PS - Interventions: Yes Attend Stress Management Classes, Yes Uses Stress Management Skills, No Referral to Mental Health, No Referral to [facility] Case Management, No Referral to Physician - Education Attended classes for:: Coping techniques, Signs & symptoms of depression, Stress management, Relaxation techniques - Assistive Devices Assistive Devices:: None Fall Risk Assessed:: Yes Patient Health Questionnaire 60-Day Re-eval Assessment 1. Little interest or pleasure in doing things: Not at all 2. Feeling down, depressed, or hopeless: Not at all 3. Trouble falling or staying asleep, or sleeping too much: Not at all 4. Feeling tired or having little energy: Not at all 5. Poor appetite or overeating: Not at all 6. Feeling bad about yourself -- or that you are a failure or have let yourself or your family down: Not at all 7. Trouble concentrating on things, such as reading the newspaper or watching television: Not at all 8. Moving or speaking so slowly that other people could have noticed. Or the opposite - being so fidgety or restless that you have been moving around a lot more than usual: Not at all 9. Thoughts that you would be better off , or of hurting yourself in some way: Not at all How difficult have these problems made it for you to do your work, take care of things at home, or get along with other people?: Not difficult at all Total Score: 0 Self-Efficacy 60-Day Re-eval Assessment We would like to know how confident you are in doing certain activities. Please select your confidence level for:: Select your confidence level for the following using the scale 1-10 where 1 is not at all confident and 10 is totally confident. Your score is the average of all 6 responses. Fatigue: How confident are you that you can keep the fatigue caused by your disease from interfering with the things you want to do? Select Number: 10 Physical Discomfort or Pain: How confident are you that you can keep the physical discomfort or pain of your disease from interfering with the things you want to do? Select Number: 10 Emotional Distress: How confident are you that you can keep the emotional distress caused by your disease from interfering with the things you want to do? Select Number: 10 Other Symptoms or Health Problems: How confident are you that you can keep other symptoms or health problems from interfering with the things you want to do? Select Number: 10 Different Tasks and Activities: How confident are you that you can do the different tasks and activities needed to manage your health condition so as to reduce your need to see a doctor? Select Number: 10 Medication: How confident are you that you can do things other than just taking medication to reduce how much your illness affects your everyday life? Select Number: 10 Total Score:: 10
== END 2018-02-16 23:59 ==
LOC: CR 08:00
PROVIDERS: Family Provider Family Medicine; PCP Family Medicine; Visit Provider Internal Medicine Cardiovascular Disease
DX: I25.10 Atherosclerotic heart disease of native coronary artery without angina pectoris (principal); I21.09 ST elevation (STEMI) myocardial infarction involving other coronary artery of anterior wall; I21.3 ST elevation (STEMI) myocardial infarction of unspecified site; Z95.5 Presence of coronary angioplasty implant and graft; I25.5 Ischemic cardiomyopathy; E78.5 Hyperlipidemia, unspecified; E66.3 Overweight; Z71.3 Dietary counseling and surveillance
CPT/HCPCS: 93798; 97802

== ENCOUNTER 2018-02-16 09:47 | Outpatient (RCR) | payer OTHER, SELFPAY | END 2018-02-16 23:59 | disposition home or self-care (01) | LOC: NS 09:47 | PROVIDERS: Family Provider Family Medicine; PCP Family Medicine; Visit Provider Internal Medicine Cardiovascular Disease | DX: I25.5 Ischemic cardiomyopathy (principal); E78.5 Hyperlipidemia, unspecified; E66.3 Overweight; Z68.26 Body mass index [BMI] 26.0-26.9, adult; Z71.3 Dietary counseling and surveillance | CPT/HCPCS: 97802 ==

== ENCOUNTER → 2018-02-22 13:05 | Outpatient (CLI) | payer OTHER, SELFPAY | PROVIDERS: Family Provider Family Medicine; PCP Family Medicine; Visit Provider Internal Medicine Cardiovascular Disease | DX: I25.5 Ischemic cardiomyopathy (principal); Z95.5 Presence of coronary angioplasty implant and graft; I25.10 Atherosclerotic heart disease of native coronary artery without angina pectoris; I25.2 Old myocardial infarction | CPT/HCPCS: 93306 ==

== ENCOUNTER 2018-03-14 08:00 | Outpatient (RCR) | payer OTHER, SELFPAY ==
[2018-02-17 01:17] VITALS: BP 104/66; BP 140/74
--- NOTE | 2018-03-14 13:26 | CR.ITP_ITS ---
Exercise - Final/Discharge - Visit Date of Eval: 03/14/18 - GRaduated 03/14/18 - Stages of Change Stages of Change:: Action - Exercise Prescription Mode:: Treadmill, Rower, Airdyne, NuStep Frequency (x/week): 3 Duration:: 35 METs: 10 Target Heart Rate:: 122-130 Max HR 135 - Hypertension Do any of the following apply?: Yes, Medication Resting Blood Pressure:: 112/60 - Intervention Home Exercise/Activity Goal:: Moderate Exercise 30 min/day x 5 days/wk - Education Goal Progress: Goal Met - Exercise Program Goals Exercise Program Goals: Aerobic Activity >30 min, B/P <130/80 Nutrition - Final Assessment - Program Goals Nutrition Program Goals: LDL <70. Total Cholesterol <200. HDL >45. Trig lycerides <150. HgbA1C <7%. BMI <25 - Visit Date of Eval: 03/14/18 - Stages of Change Stages of Change:: Action - Diabetes Diabetes:: No - Weight Management Height: 5 ft 10 in Weight:: 174 lb 8 oz Body Fat %:: 26.6 - 3 pound weight loss this month! - Intervention Referral to dietitian:: No Will attend diet classes:: Yes - Education Education Goal Reached?: Yes Tobacco - Initial Assessment - Program Goals Tobacco Program Goals: Complete smoking cessation. Attend education classes. Improve Knowledge Test score - Learning Barriers Learning Barriers: Ready to Learn Tobacco - Final Assessment - Program Goals Tobacco Program Goals: Complete smoking cessation. Attend education classes. Improve Knowledge Test score - Stage of Change Stages of Change:: Action - Family Support Do you have family support?: Yes - Tobacco Use Tobacco Use: Non-smoker Do you use smokeless tobacco?: No - Intervention Education Schedule Given:: Yes - Education Education Goal Reached?: Yes Psychosocial - Initial Assess - Target Goals Target Goals: Assess presence or absence of depression. Using a valid screening tool, maximizes coping skills. Positive support system - Psychosocial Test Tool Used:: HANDS Depression Questionnaire - Assistive Devices Fall Risk Assessed:: Yes Psychosocial - Final Assessmen - Target Goals Target Goals: Assess presence or absence of depression. Using a valid screening tool, maximizes coping skills. Positive support system - Stages of Change Stages of Change:: Action - Psychosocial Test Tool Used:: HANDS Depression Questionnaire - Intervention PS - Interventions: Yes Attend Stress Management Classes, Yes Uses Stress Management Skills, No Referral to Mental Health, No Referral to [facility] Case Management, No Referral to Physician - Education Education Goal Reached?: Yes - Patient/Program Goal Preventative Medication(s):: Aspirin, Clopidogrel, Statin/lipid - Assistive Devices Assistive Devices:: None Fall Risk Assessed:: Yes Patient Health Questionnaire Discharge Assessment 1. Little interest or pleasure in doing things: Not at all 2. Feeling down, depressed, or hopeless: Not at all 3. Trouble falling or staying asleep, or sleeping too much: Not at all 4. Feeling tired or having little energy: Not at all 5. Poor appetite or overeating: Not at all 6. Feeling bad about yourself -- or that you are a failure or have let yourself or your family down: Not at all 7. Trouble concentrating on things, such as reading the newspaper or watching television: Not at all 8. Moving or speaking so slowly that other people could have noticed. Or the opposite - being so fidgety or restless that you have been moving around a lot more than usual: Not at all 9. Thoughts that you would be better off , or of hurting yourself in some way: Not at all Total Score: 0 FLORINA-Q SV Test - Statements CAD is a disease of the arteries in the heart: False Examples of risk factors for heart disease: True Angina is chest pain or discomfort: True The benefits of resistance training include: True Eating more meat and dairy products: False Anti-platelet medications such as aspirin are important: True The only effective way to manage stress: False An exercise warm-up slowly increases heart rate: True Prepared, processed foods usually have high sodium: True Depression is common after a heart attack: True The statin medications lower cholesterol: True To control blood pressure, lower the amount of sodium: True If someone gets chest discomfort during walking: False Transfats are partially hydrogenated vegetable oils: True Sleep apnea that is not treated increases the risk: False To control cholesterol, one should become a vegetarian: False Someone knows if he/she is exercising at the right level: True Diabetes cannot be prevented with exercise & health eating: False Stress is a large risk for heart attack: True A diet that can help lower blood pressure is rich in: True - Total Score Total Correct Responses: 20 Self-Efficacy Discharge Assessment We would like to know how confident you are in doing certain activities. Please select your confidence level for:: Select your confidence level for the following using the scale 1-10 where 1 is not at all confident and 10 is totally confident. Your score is the average of all 6 responses. Fatigue: How confident are you that you can keep the fatigue caused by your disease from interfering with the things you want to do? Select Number: 10 Physical Discomfort or Pain: How confident are you that you can keep the physical discomfort or pain of your disease from interfering with the things you want to do? Select Number: 10 Emotional Distress: How confident are you that you can keep the emotional distress caused by your disease from interfering with the things you want to do? Select Number: 10 Other Symptoms or Health Problems: How confident are you that you can keep other symptoms or health problems from interfering with the things you want to do? Select Number: 10 Different Tasks and Activities: How confident are you that you can do the different tasks and activities needed to manage your health condition so as to reduce your need to see a doctor? Select Number: 10 Medication: How confident are you that you can do things other than just taking medication to reduce how much your illness affects your everyday life? Select Number: 10 Total Score:: 10 Nutrition Survey - Nutrition Survey Instructions Scoring Instructions: Scoring is as follows: Yes = 1 points. No = 0 point. Patient score that is >/=12 is considered to be at potential nutritional risk and could benefit from a referral to a registered dietitian. - Nutrition Survey Discharge Have you lost >10 lbs over the past 2 months without trying?: No Are you following a special diet at home for diabetes, low fat, or low salt?: No Are you interested in meeting with a dietitian for help understanding your diet?: No Do you eat less than 3 meals a day?: No Do you eat fatty meats (reynolds, sausage, ribs, etc), fried foods, desserts, large amounts of salad dressings, margarine, butter, or cheese most days?: Yes - very rarely but will have small portions now and then Do you have food allergies? [Enter types in comment field]: No Do you eat in restaurants more than 3 times a week?: No Do you season food with salt, seasoning salt, or garlic salt?: No Do you used canned, boxed, frozen meals, or soups, seasoning packets?: No Total Score:: 1
[2018-03-14 13:27] VITALS: BP 112/60
== END 2018-03-18 23:59 ==
LOC: CR 08:00
PROVIDERS: Family Provider Family Medicine; PCP Family Medicine; Visit Provider Internal Medicine Cardiovascular Disease
DX: I25.10 Atherosclerotic heart disease of native coronary artery without angina pectoris (principal); I21.09 ST elevation (STEMI) myocardial infarction involving other coronary artery of anterior wall; I21.3 ST elevation (STEMI) myocardial infarction of unspecified site; Z95.5 Presence of coronary angioplasty implant and graft
CPT/HCPCS: 93798

== ENCOUNTER → 2019-01-22 07:18 | Outpatient (CLI) | payer MEDICARE, OTHER, SELFPAY ==
[2019-01-17 15:27] VITALS: BMI 33.7
[2019-01-22 07:53] LABS: AST(SGOT) 23 U/L (15-37); Alanine Aminotransfer ALT/SGPT 40 U/L (16-61); Albumin, Serum 3.6 g/dL (3.2-5.0); Alkaline Phosphatase 90 U/L (45-117); Bilirubin, Direct 0.15 mg/dL (0.00-0.30); Cholesterol 114 mg/dL (200); Globulin 3.1 g/dL (2.2-4.2); High Density Lipoprotein 47 mg/dL; Protein, Total 6.7 g/dL (6.4-8.2); Triglycerides 46 mg/dL; Very Low Density Lipoprotein 9 mg/dL (5-40)
== END ==
PROVIDERS: Family Provider Family Medicine; PCP Family Medicine; Referring Provider Internal Medicine Cardiovascular Disease; Visit Provider Internal Medicine Cardiovascular Disease
DX: I25.10 Atherosclerotic heart disease of native coronary artery without angina pectoris (principal); E78.5 Hyperlipidemia, unspecified
CPT/HCPCS: 36415; 80061; 80076

== ENCOUNTER → 2020-04-15 06:07 | Outpatient (CLI) | payer MEDICARE, OTHER, SELFPAY ==
[2020-03-27 08:31] VITALS: BMI 26.4
[2020-04-15 06:26] LABS: Absolute Lymphocyte Count 2.15 X10^3/uL (0.83-4.51); Absolute Neutrophil Count 3.3 X10^3/uL (2.0-7.7); Basophil# 0.03 X10^3/uL; Basophil% 0.5 % (0-1); Eosinophil# 0.26 X10^3/uL; Eosinophils% 4.1 % (0-5); Hematocrit 45.1 % (40-54); Hemoglobin 14.8 g/dL (13.0-16.5); Lymphocyte # 2.15 X10^3/ul (4.0); Mean Corp Hgb Conc 32.8 g/dL (32-36); Mean Corpuscular Hgb 31.1 pg (27.0-32.0); Mean Corpuscular Volume 94.7 fL (80-94); Mean Platelet Vol. 10.5 fl (6.2-12.0); Monocyte# 0.62 X10^3/uL; Monocyte% 9.8 % (0-10); NRBC Flagged by Analyzer 0 % (0-5); Neutrophil # 3.26 X10^3/uL (2.7-7.7); Neutrophil % 51.4 % (47-70); Platelet Count 182 K/mm3 (150-450); RBC Distribution Width CV 12.1 % (11.6-14.6); RBC Distribution Width SD 42.4 fl (35.1-43.9); Red Blood Count 4.76 M/mm3 (4.6-6.2); White Blood Count 6.3 K/mm3 (4.4-11.0)
[2020-04-15 06:45] LABS: ALB/GLOB Ratio 1.2 RATIO (0.9-2.4); AST(SGOT) 24 U/L (15-37); Alanine Aminotransfer ALT/SGPT 40 U/L (16-61); Albumin, Serum 3.6 g/dL (3.2-5.0); Alkaline Phosphatase 79 U/L (45-117); Anion Gap 3 (5-15); BUN 17 mg/dL (7-18); Calcium,Total 8.9 mg/dL (8.5-10.1); Chloride 106 mmol/L (98-107); Cholesterol 129 mg/dL (200); Creatinine, Serum 1.06 mg/dL (0.70-1.30); EST Glomerular Filtration Rate 74 mL/min (>60); Est Glom Filt Rate - Afr Amer 89 mL/min (>60); Globulin 3.1 g/dL (2.2-4.2); Glucose 103 mg/dL (74-106); High Density Lipoprotein 48 mg/dL; Potassium 4.1 mmol/L (3.5-5.1); Protein, Total 6.7 g/dL (6.4-8.2); Sodium Level 142 mmol/L (136-145); Triglycerides 71 mg/dL; Very Low Density Lipoprotein 14 mg/dL (5-40)
--- NOTE | 2020-04-15 07:54 | STRESSREP_ITS ---
Stress Test Report Date: 04-15-2020 Procedure: Exercise tolerance test/imaging study Indications: Dyspnea on exertion, CAD, status post STEMI, status post PCI Consent: Per the patient Procedure: The patient exercised on a Rober protocol for 9 minutes and 15 seconds completing Stage III and 15 seconds of Stage IV achieving a peak heart rate of 125 bpm (82% predicted maximal heart rate) with a peak blood pressure 166/62 mmHg and a peak MET capacity of 10 METs. The baseline ECG demonstrated sinus rhythm; anterolateral PR of indeterminate age cannot be excluded: Inferior PR of indeterminate age cannot be excluded. The peak exercise ECG demonstrated somatic/motion artifact with no obvious ECG changes. There was an isolated PAC during exercise. The functional capacity was considered good. There was no complaint of chest discomfort during exercise or recovery. The examination was discontinued secondary to dyspnea. Impression: 1. Technically adequate (percent predicted maximal heart rate greater than 85%) exercise tolerance test 2. Peak exercise ECG with somatic/motion artifact with no obvious ECG changes 3. Was an isolated PAC during exercise 4. Nuclear images pending Myocardial perfusion imaging study: Technique: The patient was injected with mCi of technetium 99m Cardiolite and subsequently rest SPECT Cardiolite nuclear imaging was obtained in the horizontal long, vertical long, and short axis views. The patient exercised on a Rober protocol for 9 minutes and 15 seconds completing Stage III and 15 seconds of Stage IV achieving a peak heart rate of 125 bpm (82% predicted maximal heart rate) with a peak blood pressure 166/62 mmHg and a peak MET capacity of 10 METs. The patient was injected with mCi of technetium 99m Cardiolite and subsequently stress SPECT Cardiolite nuclear imaging was obtained in the horizontal long, vertical long, and short axis views. A gated Cardiolite study at peak stress was obtained. Interpretation: Rest and stress SPECT Cardiolite nuclear imaging status post realignment, normalization, and attenuation correction, demonstrates diminished absence of myocardial perfusion/tracer uptake in portions of the mid to distal anterior, anteroapical, as well as the distal anteroseptal/septal apical segments without significant change between rest and stress. There is diminished end systolic thickening and brightening. The gated Cardiolite study demonstrates diminished myocardial thickening and inward wall motion in the aforementioned areas. The reported LVEF is 57%. Impression: 1. Rest and stress SPECT Cardiolite nuclear imaging demonstrate myocardial perfusion change appearing compatible defects of previous myocardial injury/infarction in portions of the mid to distal anterior, anteroapical, distal anteroseptal, and septal apical segments with no myocardial perfusion changes considered diagnostic for associated stress-induced myocardial ischemia. 2. The gated Cardiolite study reports an LVEF of 57%. This note was generated with [employer] software. It may contain incorrect words, spelling, and punctuation that were not noted in checking the note before signing.
== END ==
PROVIDERS: PCP Family Medicine; Referring Provider Physician Assistant Medical; Visit Provider Physician Assistant Medical
DX: I25.10 Atherosclerotic heart disease of native coronary artery without angina pectoris (principal); I25.5 Ischemic cardiomyopathy; R06.00 Dyspnea, unspecified
CPT/HCPCS: 36415; 78452; 80053; 80061; 85025; 93017; A9500; A4216

== ENCOUNTER → 2020-11-20 06:52 | Outpatient (CLI) | payer MEDICARE, OTHER, SELFPAY ==
[2020-11-12 09:58] VITALS: BMI 27.1
[2020-11-20 08:58] LABS: AST(SGOT) 23 U/L (15-37); Alanine Aminotransfer ALT/SGPT 44 U/L (16-61); Albumin, Serum 3.6 g/dL (3.2-5.0); Alkaline Phosphatase 89 U/L (45-117); Bilirubin, Direct 0.16 mg/dL (0.00-0.30); Cholesterol 121 mg/dL (200); Globulin 3.1 g/dL (2.2-4.2); High Density Lipoprotein 40 mg/dL; Protein, Total 6.7 g/dL (6.4-8.2); Triglycerides 74 mg/dL; Very Low Density Lipoprotein 15 mg/dL (5-40)
== END ==
PROVIDERS: PCP Family Medicine; Referring Provider Internal Medicine Cardiovascular Disease; Visit Provider Internal Medicine Cardiovascular Disease
DX: E78.00 Pure hypercholesterolemia, unspecified (principal)
CPT/HCPCS: 36415; 80061; 80076

== ENCOUNTER → 2020-11-24 06:14 | Outpatient (CLI) | payer MEDICARE, OTHER, SELFPAY ==
[2020-11-12 09:58] VITALS: BMI 27.1
--- NOTE | 2020-11-24 06:17 | ECHOCS_ITS ---
Reason For Study: STEMI Procedure This was a 2D Doppler, Color Flow transthoracic echocardiogram. The study was technically difficult. Exam performed in department. Left Ventricle Normal LV size. Mild segmental systolic dysfunction (see wall motion). The estimated ejection fraction is 50 %. No evidence for diastolic dysfunction. Mid-Anterior : Hypokinetic. Mid- anteroseptal : Akinetic. [place] : Akinetic. Right Ventricle Normal RV size. Normal systolic function. Atria Normal left atrium. Normal right atrium. No doppler evidence for ASD. Mitral Valve There is no mitral annular calcification. Normal mitral valve. Trivial mitral valve insufficiency. Tricuspid Valve Normal tricuspid valve. Trivial tricuspid valve insufficiency. Right ventricular systolic pressure estimated to be 27 mmHg. Aortic Valve Trisinus/trileaflet aortic valve. Normal aortic valve. Pulmonic Valve The pulmonic valve is not well visualized. Trivial pulmonic valve insufficiency. Great Vessels Normal sized aortic root. Pericardium/Pleural No pericardial effusion. Medication Diluted definity 5ml given slow IV push to enhance endocardial definition. MMode/2D Measurements & Calculations LVIDd: 5.0 cm IVSd: 1.0 cm Ao root diam: 3.3 cm LVIDs: 3.3 cm LVPWd: 0.97 cm RVDd: 3.2 cm FS: 32.7 % LAV(MOD-bp): 40.6 ml LVAd ap4: 37.7 cm2 SV(MOD-sp4): 70.5 ml LAV(MOD-bp) Indexed: 19.9 ml/m2 LVLd ap4: 8.9 cm LAV(MOD-sp2): 51.2 ml EDV(MOD-sp4): 129.4 ml LAV(MOD-sp4): 23.8 ml EDV(sp4-el): 134.8 ml LVAs ap4: 24.0 cm2 LVLs ap4: 7.7 cm ESV(MOD-sp4): 58.9 ml ESV(sp4-el): 63.4 ml EF(MOD-sp4): 54.5 % EF(sp4-el): 52.9 % SV(sp4-el): 71.4 ml LA A4 area: 11.6 cm2 LA dimension(2D): 3.0 cm RA A4 area: 12.5 cm2 Time Measurements MV dec time: 0.31 sec Doppler Measurements & Calculations MV E max zain: 62.9 cm/sec Lat Peak E' Zain: 5.4 cm/sec Med Peak E' Zain: 5.9 cm/sec MV A max zain: 109.0 cm/sec E/E' lat: 11.7 E/E' med: 10.6 MV E/A: 0.58 Ao V2 max: 135.9 cm/sec LV V1 max: 104.7 cm/sec PA V2 max: 102.2 cm/sec Ao max P.4 mmHg LV V1 max P.4 mmHg TR max zain: 242.2 cm/sec TR max P.5 mmHg ECHO/Echo Complete W/ Contrast Interpretation Summary The study was technically difficult. Mild segmental systolic dysfunction (see wall motion). The estimated ejection fraction is 50 %. Trivial mitral valve insufficiency. Trivial tricuspid valve insufficiency. Trivial pulmonic valve insufficiency. Right ventricular systolic pressure estimated to be 27 mmHg. No evidence for diastolic dysfunction. Ordering Physician: Dev Reyes Referring Physician: ROBEL CABRERA Performed By: Kaye Oconnor RDCS
--- NOTE | 2020-11-24 08:55 | STRESSREP_ITS ---
Stress Test Report Date: 11-24-2020 Procedure: Exercise tolerance test/imaging study Indications: Chest pain; shortness of breath/dyspnea on exertion; CAD; status post STEMI; ischemic cardiomyopathy Consent: Per the patient Procedure: The patient exercised on a Rober protocol for 10 minutes completing Stage III and 1 minute of Stage IV achieving a peak heart rate of 130 bpm (86% predicted maximal heart rate) with a peak blood pressure 160/74 mmHg and a peak MET capacity of 11 METs. The baseline ECG demonstrated sinus bradycardia; anterolateral NC of ind eterminate age cannot be excluded. The peak exercise ECG demonstrated somatic/motion artifact with no obvious ECG changes. There was a rare PVC during exercise. The functional capacity was considered good. There was no complaint of chest discomfort during exercise or recovery. The examination was discontinued secondary to dyspnea. Impression: 1. Technically adequate (percent predicted maximal heart rate greater than 85%) exercise tolerance test 2. Peak exercise ECG with somatic/motion artifact with no obvious ECG changes 3. There was a rare PVC during exercise 4. Nuclear images pending Myocardial perfusion imaging study: Technique: The patient was injected with 11.6 mCi of technetium 99m Cardiolite and subsequently rest SPECT Cardiolite nuclear imaging was obtained in the h orizontal long, vertical long, and short axis views. The patient exercised on a Rober protocol for 10 minutes completing Stage III and 1 minute of Stage IV achieving a peak heart rate of 130 bpm (86% predicted maximal heart rate) with a peak blood pressure 160/74 mmHg and a peak MET capacity of 11 METs. The patient was injected with 32.7 mCi of technetium 99m Cardiolite and subsequently stress SPECT Cardiolite nuclear imaging was obtained in the horizontal long, vertical long, and short axis views. A gated Cardiolite study at peak stress was obtained. Interpretation: Rest and stress SPECT Cardiolite nuclear imaging status post realignment, normalization, and attenuation correction, demonstrates diminished absence of myocardial perfusion/tracer uptake in portions of the mid to distal anterior and anteroseptal segments as well as the apical segments without significant change between rest and stress. There is diminished end systolic thickening and brightening. The gated Cardiolite study demonstrates diminished myocardial thickening and inward wall motion. The reported LVEF is 58%. Impression: 1. Rest and stress SPECT Cardiolite nuclear imaging demonstrate myocardial perfusion changes appearing compatible with an area of previous myocardial injury/infarction involving portions of the mid to distal anterior and anteroseptal segments as well as the apical segments with no myocardial perfusion changes considered diagnostic for associated stress-induced myocardial ischemia. 2. The gated Cardiolite study reports an LVEF of 58%. This note was generated with [employer] software. It may contain incorrect words, spelling, and punctuation that were not noted in checking the note before signing.
== END ==
PROVIDERS: PCP Family Medicine; Referring Provider Internal Medicine Cardiovascular Disease; Visit Provider Internal Medicine Cardiovascular Disease
DX: I25.119 Atherosclerotic heart disease of native coronary artery with unspecified angina pectoris (principal); Z95.5 Presence of coronary angioplasty implant and graft; I25.5 Ischemic cardiomyopathy; R06.00 Dyspnea, unspecified; I21.02 ST elevation (STEMI) myocardial infarction involving left anterior descending coronary artery
CPT/HCPCS: 78452; 93017; 93306; A9500; Q9957; A4216; C8929; J3490

== ENCOUNTER → 2021-06-01 07:13 | Outpatient (CLI) | payer MEDICARE, OTHER, SELFPAY ==
[2021-06-01 08:33] LABS: AST(SGOT) 23 U/L (15-37); Alanine Aminotransfer ALT/SGPT 44 U/L (16-61); Albumin, Serum 3.4 g/dL (3.2-5.0); Alkaline Phosphatase 79 U/L (45-117); Cholesterol 116 mg/dL (200); High Density Lipoprotein 41 mg/dL; Protein, Total 6.4 g/dL (6.4-8.2); Triglycerides 72 mg/dL; Very Low Density Lipoprotein 14 mg/dL (5-40)
== END ==
PROVIDERS: PCP Family Medicine; Referring Provider Internal Medicine Cardiovascular Disease; Visit Provider Internal Medicine Cardiovascular Disease
DX: E78.00 Pure hypercholesterolemia, unspecified (principal)
CPT/HCPCS: 36415; 80061; 80076

== ENCOUNTER → 2022-06-08 | Outpatient (CLI) | payer MEDICARE, SELFPAY ==
[2022-06-08 09:20] LABS: AST(SGOT) 24 U/L (15-37); Alanine Aminotransfer ALT/SGPT 41 U/L (16-61); Albumin, Serum 3.5 g/dL (3.2-5.0); Alkaline Phosphatase 68 U/L (45-117); Anion Gap 4 (5-15); BUN 18 mg/dL (7-18); BUN/Creat Ratio 19.6 RATIO (10-20); Bilirubin, Direct 0.18 mg/dL (0.00-0.30); Calcium,Total 8.9 mg/dL (8.5-10.1); Chloride 107 mmol/L (98-107); Cholesterol 110 mg/dL (200); Creatinine, Serum 0.92 mg/dL (0.70-1.30); EST Glomerular Filtration Rate 86 mL/min (>60); Est Glom Filt Rate - Afr Amer 104 mL/min (>60); Globulin 3.1 g/dL (2.2-4.2); Glucose 100 mg/dL (74-106); High Density Lipoprotein 36 mg/dL; Potassium 4.4 mmol/L (3.5-5.1); Protein, Total 6.6 g/dL (6.4-8.2); Sodium Level 143 mmol/L (136-145); Triglycerides 64 mg/dL; Very Low Density Lipoprotein 13 mg/dL (5-40)
== END | disposition home or self-care (01) ==
LOC: LAB 07:49
PROVIDERS: PCP Family Medicine; Visit Provider Nurse Practitioner Family
DX: Z95.5 Presence of coronary angioplasty implant and graft (principal); I25.5 Ischemic cardiomyopathy; I25.10 Atherosclerotic heart disease of native coronary artery without angina pectoris
CPT/HCPCS: 36415; 80048; 80061; 80076

== ENCOUNTER → 2023-02-03 | Outpatient (CLI) | payer MEDICARE, SELFPAY ==
[2023-02-03 08:12] LABS: AST(SGOT) 25 U/L (15-37); Alanine Aminotransfer ALT/SGPT 39 U/L (16-61); Albumin, Serum 3.3 g/dL (3.2-5.0); Alkaline Phosphatase 74 U/L (45-117); Bilirubin, Direct 0.12 mg/dL (0.00-0.30); Cholesterol 122 mg/dL (200); High Density Lipoprotein 42 mg/dL; Protein, Total 6.3 g/dL (6.4-8.2); Triglycerides 61 mg/dL; Very Low Density Lipoprotein 12 mg/dL (5-40)
== END | disposition home or self-care (01) ==
LOC: LAB 07:03
PROVIDERS: PCP Family Medicine; Referring Provider Nurse Practitioner Family; Visit Provider Nurse Practitioner Family
DX: E78.00 Pure hypercholesterolemia, unspecified (principal); I25.10 Atherosclerotic heart disease of native coronary artery without angina pectoris
CPT/HCPCS: 36415; 80061; 80076

== ENCOUNTER → 2023-10-12 | Outpatient (CLI) | payer MEDICARE, SELFPAY ==
[2023-10-12 08:58] LABS: AST(SGOT) 32 U/L (15-37); Alanine Aminotransfer ALT/SGPT 42 U/L (16-61); Albumin, Serum 3.5 g/dL (3.2-5.0); Alkaline Phosphatase 77 U/L (45-117); Bilirubin, Direct 0.19 mg/dL (0.00-0.30); Cholesterol 116 mg/dL (200); High Density Lipoprotein 41 mg/dL; Protein, Total 6.5 g/dL (6.4-8.2); Triglycerides 59 mg/dL; Very Low Density Lipoprotein 12 mg/dL (5-40)
== END | disposition home or self-care (01) ==
PROVIDERS: PCP Family Medicine; Visit Provider Nurse Practitioner Family
DX: I25.10 Atherosclerotic heart disease of native coronary artery without angina pectoris (principal); E78.00 Pure hypercholesterolemia, unspecified
CPT/HCPCS: 36415; 80061; 80076

== ENCOUNTER → 2024-05-09 | Outpatient (CLI) | payer MEDICARE, SELFPAY ==
[2024-05-09 08:30] LABS: AST(SGOT) 28 U/L (15-37); Alanine Aminotransfer ALT/SGPT 36 U/L (16-61); Albumin, Serum 3.7 g/dL (3.2-5.0); Alkaline Phosphatase 78 U/L (45-117); Anion Gap 4 (5-15); BUN 22 mg/dL (7-18); BUN/Creat Ratio 20.4 RATIO (10-20); Bilirubin, Direct 0.24 mg/dL (0.00-0.30); Calcium,Total 9.3 mg/dL (8.5-10.1); Chloride 109 mmol/L (98-107); Cholesterol 101 mg/dL (200); Creatinine, Serum 1.08 mg/dL (0.70-1.30); EST Glomerular Filtration Rate 71 mL/min (>60); Est Glom Filt Rate - Afr Amer 86 mL/min (>60); Globulin 2.9 g/dL (2.2-4.2); Glucose 103 mg/dL (74-106); High Density Lipoprotein 39 mg/dL; Potassium 4.3 mmol/L (3.5-5.1); Protein, Total 6.6 g/dL (6.4-8.2); Sodium Level 140 mmol/L (136-145); Triglycerides 50 mg/dL; Very Low Density Lipoprotein 10 mg/dL (5-40)
== END | disposition home or self-care (01) ==
LOC: LAB 07:13
PROVIDERS: Nurse Practitioner Family; PCP Family Medicine; Referring Provider Family Medicine; Visit Provider Family Medicine
DX: Z13.1 Encounter for screening for diabetes mellitus (principal); Z12.5 Encounter for screening for malignant neoplasm of prostate; E78.00 Pure hypercholesterolemia, unspecified
CPT/HCPCS: 80048; 80061; 80076; 84153; G0103

== ENCOUNTER → 2024-09-24 | Outpatient (CLI) | payer MEDICARE, SELFPAY ==
--- NOTE | 2024-09-24 06:22 | ECHOCS_ITS ---
Reason For Study Reason For Study: Evaluate EF Procedure This was a 2D Doppler, Color Flow transthoracic echocardiogram. The study was technically difficult. Contrast injection was performed. Exam performed in department. Left Ventricle Normal LV size. Stage 1 diastolic dysfunction. The left ventricular ejection fraction is 50 %. There are regional wall motion abnormalities as specified. [place] : Akinetic. Septal [place] : Akinetic. Anterior [place] : Hypokinetic. The rest of the wall segments are normal. Right Ventricle Normal RV size. Normal systolic function. Atria Normal left atrium. Normal right atrium. Mitral Valve Normal mitral valve. Tricuspid Valve Normal tricuspid valve. Mild tricuspid valve insufficiency. Aortic Valve Trisinus/trileaflet aortic valve. Great Vessels Normal aortic root. The pulmonary artery is normal size. Inferior vena cava collapse with respiration. Pericardium/Pleural No pericardial effusion. Medication 22 gauge I.V. with prn adaptor inserted into right arm. Diluted definity 2ml given slow IV push to enhance endocardial definition. MMode/2D Measurements & Calculations LVIDd: 4.7 cm IVSd: 1.2 cm Ao root diam: 3.6 cm LVIDs: 3.1 cm LVPWd: 1.0 cm RVDd: 3.5 cm FS: 33.6 % LAV(MOD-bp): 31.4 ml LVAd ap4: 44.3 cm2 SV(MOD-sp4): 83.2 ml LAV(MOD-bp) Indexed: 15.0 ml/m2 LVLd ap4: 9.8 cm SI(MOD-sp4): 39.9 ml/m2 LAV(MOD-sp2): 34.6 ml EDV(MOD-sp4): 162.2 ml LAV(MOD-sp4): 26.8 ml EDV(sp4-el): 169.8 ml LVAs ap4: 28.8 cm2 LVLs ap4: 8.7 cm ESV(MOD-sp4): 79.0 ml ESV(sp4-el): 80.5 ml EF(MOD-sp4): 51.3 % EF(sp4-el): 52.6 % SV(sp4-el): 89.2 ml LA A4 area: 12.2 cm2 LA dimension(2D): 2.9 cm RA A4 area: 12.3 cm2 TAPSE: 2.3 cm Time Measurements MV dec time: 0.23 sec Doppler Measurements & Calculations MV E max zain: 60.5 cm/sec Lat Peak E' Zain: 5.1 cm/sec Med Peak E' Zain: 7.1 cm/sec MV A max zain: 119.7 cm/sec E/E' lat: 12.0 E/E' med: 8.5 MV E/A: 0.51 MV V2 max: 126.2 cm/sec MV P1/2t max zain: 65.0 cm/sec Ao V2 max: 149.2 cm/sec MV max P.4 mmHg MV P1/2t: 82.8 msec Ao max P.9 mmHg MV V2 mean: 57.5 cm/sec Ao V2 mean: 97.1 cm/sec MV mean P.6 mmHg MV dec slope: 229.9 cm/sec2 Ao mean P.4 mmHg MV V2 VTI: 37.8 cm MVA(P1/2t): 2.7 cm2 Ao V2 VTI: 32.2 cm AV (velocity ratio): 0.66 LV V1 max: 96.4 cm/sec PA V2 max: 91.9 cm/sec TR max zain: 182.7 cm/sec LV V1 max P.7 mmHg PA V2 mean: 67.4 cm/sec TR max P.4 mmHg LV V1 mean P.8 mmHg LV V1 mean: 62.5 cm/sec LV V1 VTI: 21.4 cm ECHO/Echo Complete W/ Contrast Interpretation Summary Stage 1 diastolic dysfunction. The left ventricular ejection fraction is 50 %. Normal LV size. Mild tricuspid valve insufficiency. Contrast injection was performed. Ordering Physician: Eliezer Hardin Referring Physician: Eliezer Hardin Performed By: John Denise RCS
--- NOTE | 2024-09-24 16:28 | STRESSREP ---
Stress Test Report Exercise myocardial perfusion stress test. 74-year-old man with a history of coronary artery disease Stress protocol: Resting EKG demonstrates normal sinus rhythm with poor R wave progression suggestive of an anterior infarct and a rate of 60 bpm resting blood pressure is 122/78 mmHg. The patient exercised according to the regular Rober protocol for a total duration of 9 minutes attaining a maximum heart rate of 122 bpm which was 83% of maximum predicted heart rate; the maximum workload was 10.1 metabolic equivalents. At rest there were no ST or T wave changes noted to suggest ischemia and at peak exercise upsloping ST changes only were noted which did not meet the criteria for ischemia. No clinical angina was noted the test was terminated due to the target heart rate being achieved/fatigue. The peak blood pressure was 162/74 mmHg. Rate-pressure product was 19,000. Myocardial perfusion protocol. 11.7 mCi of technetium 99m sestamibi was injected at rest. The patient exercised according to regular Rober protocol for total duration of 9 minutes and at peak exercise 34.3 mCi of technetium 99m sestamibi was injected stress images were obtained stress and rest images were reconstructed in comparing the short axis vertical long and horizontal long axis. Gated images were also obtained. Perfusion SPECT analysis: Review of the stress images demonstrate normal uptake of tracer noted in all areas of the myocardium. A large defect is present in the mid to distal anterior wall and apex. The resting images similarly demonstrate normal uptake of tracer noted in all areas of the myocardium except for the mid to distal anterior wall and apex. The above is suggestive of a previous extensive anterior infarct with minimal mauro-infarct ischemia present. Gated SPECT analysis: The gated ejection fraction is 64%. Conclusion: Exercise myocardial perfusion stress test with evidence of previous anterior and apical infarct. Minimal mauro-infarct ischemia No angina noted Preserved ejection fraction.
== END | disposition home or self-care (01) ==
LOC: CVS 06:21
PROVIDERS: PCP Family Medicine; Referring Provider Nurse Practitioner Family; Visit Provider Nurse Practitioner Family
DX: I25.5 Ischemic cardiomyopathy (principal); I25.10 Atherosclerotic heart disease of native coronary artery without angina pectoris; Z95.5 Presence of coronary angioplasty implant and graft
CPT/HCPCS: 78452; 93017; 93306; A9500; Q9957; A4216; C8929

== ENCOUNTER → 2025-02-06 | Outpatient (CLI) | payer MEDICARE, SELFPAY ==
--- OUTSIDE RECORDS SUMMARY | 2025-02-06 07:26 | XMS RPT_ITS | CCD ---
Author Organization [facility] Care Team Providers Care Strategy Analyst Name Role Phone SAM, ROBEL A. Unavailable Unavailable SAM, ROBEL A. Unavailable Unavailable SAM, ROBEL A. Unavailable Unavailable SAM, ROBEL ALori Unavailable Unavailable Sam, Dr. Valentine Primary Care Provider Sam, Dr. Valentine Referring Provider Roof GENERAL OPERATIONS AGENT, GENERAL OPERATIONS AGENT-C Eliezer Burr Attending Provider [phone] Sam DO, Dr. Valentine Primary Care Provider Sam DO, Dr. Valentine Referring Provider [phone] Roof GENERAL OPERATIONS AGENT-C, Eliezer Burr Attending Provider Roof GENERAL OPERATIONS AGENT-C, Eliezer Burr Referring Provider Jose G MOISE, Dr. Hedrick Attending Provider SamRobel Attending Unavailable Sam, Robel Referring Unavailable Sam, Robel Primary Care Unavailable Roof GENERAL OPERATIONS AGENT, Eliezer Burr Consulting Unavailable Sam, Robel Referring Unavailable Roof GENERAL OPERATIONS AGENT, Eliezer Burr Attending Unavailable Sam, Robel Primary Care Unavailable Sam, Robel Primary Care Unavailable Ryley Araiza Attending Unavailable Sam, Robel Primary Care Unavailable Roof GENERAL OPERATIONS AGENT, Eliezer Burr Attending Unavailable Roof GENERAL OPERATIONS AGENT, Eliezer Burr Referring Unavailable Roof GENERAL OPERATIONS AGENT, Eliezer Burr Attending Unavailable Sam, Robel Primary Care Unavailable Sam, Robel Referring Unavailable Roof GENERAL OPERATIONS AGENT, Eliezer Burr Attending Unavailable Sam, Robel Primary Care Unavailable Medications Current Medications Medication Drug Class(es) Dates Sig (Normalized) Sig (Original) aspirin 81 mg chewable tablet (3 sources) Platelet Aggregation Inhibitor, Nonsteroidal Anti-inflammatory Drug Start: 11-13-2017 take 1 tablet by mouth once daily Aspirin 81 MG tablet,chewable Active 81 mg PO DAILY@0800 November 13, 2017 12:00am Ca Carb-Ca Gluc-Mg Ox-Mg Gluco (Calcium Magnesium) 500 mg calcium -250 mg tablet (2 sources) Start: 11-12-2020 take 1 tablet by mouth once daily Ca Carb-Ca Gluc-Mg Ox-Mg Gluco (Calcium Magnesium) 500 mg calcium -250 mg tablet Active 1 TABLET PO DAILY November 12, 2020 12:00am Calcium Carb,Gluc-Mag Gluc,Ox (Calcium Magnesium) 500 mg calcium -250 mg tablet (1 source) Start: 11-12-2020 Calcium Carb,Gluc-Mag Gluc,Ox (Calcium Magnesium) 500 mg calcium -250 mg tablet Active 1 {tbl} PO DAILY November 12, 2020 12:00am carvedilol 3.125 mg oral tablet (20 sources) alpha-Adrenergic Darian, beta-Adrenergic Darian Start: 11-16-2017 End: 06-17-2024 take 1 tablet by mouth twice daily Carvedilol 3.125 mg tablet Active 3.125 mg PO TWICE A DAY June 17, 2024 2:01pm cholecalciferol 0.025 mg oral capsule (3 sources) Vitamin D Start: 03-27-2020 take 1 capsule by mouth once daily Cholecalciferol (Vitamin D3) 25 mcg (1,000 unit) capsule Active 25 ug PO DAILY March 27, 2020 12:00am clopidogrel 75 mg oral tablet (20 sources) P2Y12 Platelet Inhibitor Start: 01-17-2019 End: 08-05-2024 take 1 tablet by mouth once daily Clopidogrel (Plavix) 75 mg tablet Active 75 mg PO DAILY August 05, 2024 9:40am lisinopril 10 mg oral tablet (18 sources) Angiotensin Converting Enzyme Inhibitor Start: 11-25-2020 End: 06-17-2024 take 1 tablet by mouth once daily Lisinopril 10 mg tablet Active 10 mg PO DAILY June 17, 2024 12:24pm Start: 11-16-2017 End: 02-09-2018 take 1 tablet by mouth once daily Lisinopril 2.5 MG tablet Discontinued 2.5 mg PO DAILY November 16, 2017 12:00am February 09, 2018 10:00am Multivitamin (Daily Multi-Vitamin) tablet (3 sources) Start: 03-27-2020 Multivitamin ( Daily Multi-Vitamin) tablet Active 1 {tbl} PO DAILY March 27, 2020 12:00am Start: 03-27-2020 take 1 tablet by marcello th once daily Multivitamin (Daily Multi-Vitamin) tablet Active 1 TABLET PO DAILY March 27, 2020 12:00am nitroglycerin 0.4 mg sublingual tablet (8 sources) Nitrate Vasodilator Start: 12-07-2020 End: 06-27-2023 Nitroglycerin 0.4 mg tablet, sublingual Active 0 .ROUTE .COMPLEX 50 June 27, 2023 2:51pm 0.4 MG SUBLINGUAL EVERY 5 MINUTES NEEDED FOR CHEST PAIN DO NOT EXCEED 3 DOSES PER EPISODE Start: 11-12-2020 End: 06-27-2023 Nitroglycerin 0.4 mg tablet, sublingual Discontinued 0.4 mg SL Q5M as needed for chest pain November 12, 2020 12:00am December 07, 2020 9:21am do not exceed 3 doses per episode [place]-3 Fatty Acids (Fish Oil Concentrate) 1,000 mg capsule (3 sources) Start: 03-27-2020 take 1 capsule by mouth once daily [place]-3 Fatty Acids (Fish Oil Concentrate) 1,000 mg capsule Active 1000 mg PO DAILY March 27, 2020 12:00am Start: 03-27-2020 take 1 capsule by mo uth once daily [place]-3 Fatty Acids (Fish Oil Concentrate) 1,000 mg capsule Active 1000 MG PO DAILY March 27, 2020 12:00am Completed/Discontinued Medications Medication Drug Class(es) Dates Sig (Normalized) Sig (Original) atorvastatin 80 mg oral tablet (20 sources) HMG-CoA Reductase Inhibitor Start: 11-16-2017 End: 10-23-2023 take 1 tablet by mouth at bedtime Atorvastatin 80 mg tablet Discontinued 80 mg PO AT BEDTIME February 22, 2022 11:54am January 20, 2023 1:31pm Glucosamine [place] MSM Tab (3 sources) Start: 11-13-2017 End: 11-16-2017 Glucosamine [place] MSM Tab Discontinued November 13, 2017 12:00am November 16, 2017 10:10am Multivitamin preparation (3 sources) Start: 11-13-2017 End: 11-16-2017 Multivitamin Discontinued November 13, 2017 12:00am November 16, 2017 10:10am ticagrelor 90 mg oral tablet (6 sources) Start: 11-16-2017 End: 01-17-2019 take 1 tablet by mouth twice daily Ticagrelor 90 mg tablet Discontinued 90 mg PO TWICE A DAY 60 March 14, 2018 4:07pm January 17, 2019 3:43pm Vit C-Vit S3-J-Htql-Elderberr y (Airborne Vits Zinc Elderberry) 65 mg-3.15 mcg- 3.35 mg-1 mg tablet,chewable (3 sources) Start: 05-27-2021 End: 10-23-2023 take 1 tablet by mouth once daily Vit C-Vit E6-U-Ehqo-Elderberr y (Airborne Vits Zinc Elderberry) 65 mg-3.15 mcg- 3.35 mg-1 mg tablet,chewable Discontinued 1 {tbl} PO DAILY May 27, 2021 1:00am October 23, 2023 9:13am Start: 05-27-2021 take 1 tablet by marcello th once daily Vit C-Vit S5-H-Taju-Elderberry (Airborne Vits Zinc Elderberry) 65 mg-3.15 mcg- 3.35 mg-1 mg tablet,chewable Active 1 TABLET PO DAILY May 27, 2021 1:00am Problems Active Problems Problem Classification Problem Date Documented Da te Episodic/Chronic Acute and unspecified renal failure (3 sources) Acute renal failure syndrome; Translations: [Acute kidney failure, unspecified] 12-05-2017 Episodic Acute myocardial infarction (6 sources) Acute myocardial infarction of anterior wall; Translations: [ST elevation (STEMI) myocardial infarction involving other coronary artery of anterior wall] 12-05-2017 Chronic Coronary atherosclerosis and other heart disease (15 sources) Ischemic myocardial dysfunction; Translations: [Ischemic cardiomyopathy] Onset: 08-17-2024 05-31-2022 Chronic Comment on above: PCI-DELMY-Mid Lad w/ 3 .0 x 38 mm Resolute Stent and Ioy-AJP-Lbrcph of the D3 w/ 3.0 x 22 mm Resolute stent 11/13/17 Coronary atherosclerosis and other heart disease (4 sources) Stented coronary artery; Translations: [Presence of coronary angioplasty implant and graft] Onset: 10-17-2017 05-31-2022 Episodic Comment on above: PCI-DELMY-Mid Lad w/ 3 .0 x 38 mm Resolute Stent and Jkj-QDC-Jtigws of the D3 w/ 3.0 x 22 mm Resolute stent 11/13/17 Other lower respiratory disease (3 sources) Dyspnea on exertion; Translations: [Other forms of dyspnea] 03-27-2020 Episodic Past or Other Problems Problem Classification Problem Date Documented Da te Episodic/Chronic Other non-traumatic joint disorders (2 sources) Effusion, right knee; Translations: [Effusion, right knee] Onset: 03-24-2017 Episodic Other screening for suspected conditions (not mental disorders or infectious disease) (1 source) Encounter for screening for diabetes mellitus; Translations: [Encounter for screening for diabetes mellitus] Onset: 06-05-2024 Episodic Results Test Name Value Interpretation Reference Range Facility Cardiovascular stress test r eportOrdered By: Ryley Araiza on 09-24-2024 Study report [facility] Cardiovascular Services [address] [place] [address] MR#: [id number] Acct: [id number] Name: HI MCCAIN Rep #: [id number] : 1950 74 From: Ryley Araiza MD Primary Care: Dr. Robel Vargas, DO Status : REG CLI Referring Dr: Eliezer Hardin GENERAL OPERATIONS AGENT GENERAL OPERATIONS AGENT-C Sex: M C Stress Test Report Exercise myocardial perfusion stress test. 74-year-old man with a history of coronary artery disease Stress protocol: Resting EKG demonstrates normal sinus rhythm with poor R wave progression suggestive of an anterior infarct and a rate of 60 bpm resting blood pressure is122/78 mmHg. The patient exercised according to the regular Rober protocol for a total duration of 9 minutes attaining a maximum heart rate of 122 bpm which was 83% of maximum predicted heart rate; the maximum workload was 10.1 metabolicequivalents. At rest there were no ST or T wave changes noted to suggest ischemia and at peak exercise upsloping ST changes only were noted which did notmeet the criteria for ischemia. No clinical angina was noted the test was terminated due to the target heart rate being achieved/fatigue. The peak blood pressure was 162/74 mmHg. Rate-pressure product was 19,000. Myocardial perfusion protocol. 11.7 mCi of technetium 99m sestamibi was injected at rest. The patient exercised according to regular Rboer protocol for total duration of 9 minutes and at peak exercise 34.3 mCi of technetium 99m sestamibi was injected stress images were obtained stress and rest images were reconstructed in comparing the short axis vertical long and horizontal long axis. Gated images were also obtained. Perfusion SPECT analysis: Review of the stress images demonstrate normal uptake of tracer noted in all areas of the myocardium. A large defect is present in the mid to distal anterior wall and apex. The resting images similarly demonstrate normal uptake of tracer noted in all areas of the myocardium except for the mid to distal anterior wall and apex. The above is suggestive of a previous extensive anterior infarct with minimal mauro-infarct ischemia present. Gated SPECT analysis: The gated ejection fraction is 64%. Conclusion: Exercise myocardial perfusion stress test with evidence of previous anterior andapical infarct. Minimal mauro-infarct ischemia No angina noted Preserved ejection fraction. 09/24/24 1631 Date _ Ryley Araiza MD CC: GENERAL OPERATIONS AGENT-C Eliezer Hardin; Dr. 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 [address] Echo Complete W/ Contrast 09/24/24 0907 MR#: [id number] Acct: [id number] Name: HI MCCAIN Rep #: [id number] : 1950 74 From: Ryley Araiza MD Attending Dr: CAMILO Beasley Status: REG CLI Ordering Dr: Eliezer Hardin NP, NP-C Date: 09/24/24 Location: [facility] Sex: M C Admitted: Reason For Study Reason For Study: Evaluate EF Procedure This was a 2D Doppler, Color Flow transthoracic echocardiogram. The study was technically difficult. Contrast injection was performed. Exam performed in department. Left Ventricle Normal LV size. Stage 1 diastolic dysfunction. The left ventricular ejection fraction is 50 %. There are regional wall motion abnormalities as specified. [place] : Akinetic. Septal [place] : Akinetic. Anterior [place] : Hypokinetic. The rest of the wall segments are normal. Right Ventricle Normal RV size. Normal systolic function. Atria Normal left atrium. Normal right atrium. Mitral Valve Normal mitral valve. Tricuspid Valve Normal tricuspid valve. Mild tricuspid valve insufficiency. Aortic Valve Trisinus/trileaflet aortic valve. Great Vessels Normal aortic root. The pulmonary artery is normal size. Inferior vena cava collapse with respiration. Pericardium/Pleural No pericardial effusion. Medication 22 gauge I.V. with prn adaptor inserted into right arm. Diluted definity 2ml given slow IV push to enhance endocardial definition. MMode/2D Measurements Calculations LVIDd: 4.7 cm IVSd: 1.2 cm Ao root diam: 3.6 cm LVIDs: 3.1 cm LVPWd: 1.0 cm RVDd: 3.5 cm FS: 33.6 % LAV(MOD-bp): 31.4 ml LVAd ap4: 44.3 cm2 SV(MOD-sp4): 83.2 ml LAV(MOD-bp) Indexed: 15.0 ml/m2 LVLd ap4: 9.8 cm SI(MOD-sp4): 39.9 ml/m2 LAV(MOD-sp2): 34.6 ml EDV(MOD-sp4): 162.2 ml LAV(MOD-sp4): 26.8 ml EDV(sp4-el): 169.8 ml LVAs ap4: 28.8 cm2 LVLs ap4: 8.7 cm ESV(MOD-sp4): 79.0 ml ESV(sp4-el): 80.5 ml EF(MOD-sp4): 51.3 % EF(sp4-el): 52.6 % SV(sp4-el): 89.2 ml LA A4 area: 12.2 cm2 LA dimension(2D): 2.9 cm RA A4 area: 12.3 cm2 TAPSE: 2.3 cm Time Measurements MV dec time: 0.23 sec Doppler Measurements Calculations MV E max zain: 60.5 cm/sec Lat Peak E' Zain: 5.1 cm/sec Med Peak E' Zain: 7.1 cm/sec MV A max zain: 119.7 cm/sec E/E' lat: 12.0 E/E' med: 8.5 MV E/A: 0.51 MV V2 max: 126.2 cm/sec MV P1/2t max zain: 65.0 cm/sec Ao V2 max: 149.2 cm/sec MV max P.4 mmHg MV P1/2t: 82.8 msec Ao max P.9 mmHg MV V2 mean: 57.5 cm/sec Ao V2 mean: 97.1 cm/sec MV mean P.6 mmHg MV dec slope: 229.9 cm/sec2 Ao mean P.4 mmHg MV V2 VTI: 37.8 cm MVA(P1/2t): 2.7 cm2 Ao V2 VTI: 32.2 cm AV (velocity ratio): 0.66 LV V1 max: 96.4 cm/sec PA V2 max: 91.9 cm/sec TR max zain: 182.7 cm/sec LV V1 max P.7 mmHg PA V2 mean: 67.4 cm/sec TR max P.4 mmHg LV V1 mean P.8 mmHg LV V1 mean: 62.5 cm/sec LV V1 VTI: 21.4 cm ECHO/Echo Complete W/ Contrast Interpretation Summary Stage 1 diastolic dysfunction. The left ventricular ejection fraction is 50 %. Normal LV size. Mild tricuspid valve insufficiency. Contrast injection was performed. Ordering Physician: Eliezer Hardin Referring Physician: Eliezer Hardin Performed By: John Denise RCS 09/24/24 1413 Date Ryley Araiza MD CC: CAMILO Hardin; Dr. Robel Vargas DO Date Dictated: 09/24/2407 Date Transcribed: 09/24/24 141 Wrestling Coach: Signed Normal [facility] Echocardiogram study reportO rdered By: Ryley Araiza on 04-08-2025 Study report [facility] Cardiovascular Services [address] [place] [address] Echo Complete W/ Contrast 09/24/24 09 MR#: [id number] Acct: [id number] Name: HI MCCAIN Rep #:[id number] : 1950 74 From: Ryley Fisher Attending Dr: CAMILO Beasley Sta tus: REG CLI Ordering Dr: Eliezer Hardin NP GENERAL OPERATIONS AGENT-C Date: 09/24/24 Location: [facility] Sex: M C Admitted: Reason For Study Reason For Study: Evaluate EF Procedure This was a 2D Doppler, Color Flow transthoracic echocardiogram. The study was technically difficult. Contrast injection was performed. Exam performed in department. Left Ventricle Normal LV size. Stage 1 diastolic dysfunction. The left ventricular ejection fraction is 50 %. There are regional wall motion abnormalities as specified. [place] : Akinetic. Septal [place] : Akinetic. Anterior [place] : Hypokinetic. The rest of the wall segments are normal. Right Ventricle Normal RV size. Normal systolic function. Atria Normal left atrium. Normal right atrium. Mitral Valve Normal mitral valve. Tricuspid Valve Normal tricuspid valve. Mild tricuspid valve insufficiency. Aortic Valve Trisinus/trileaflet aortic valve. Great Vessels Normal aortic root. The pulmonary artery is normal size. Inferior vena cava collapse with respiration. Pericardium/Pleural No pericardial effusion. Medication 22 gauge I.V. with prn adaptor inserted into right arm. Diluted definity 2ml given slow IV push to enhance endocardial definition. MMode/2D Measurements & Calculations LVIDd: 4.7 cm IVSd: 1.2 cm Ao root diam: 3.6 cm LVIDs: 3.1 cm LVPWd: 1.0 cm RVDd: 3.5 cm FS: 33.6 % LAV(MOD-bp): 31.4 ml LVAd ap4: 44.3 cm2 SV(MOD-sp4): 83.2 ml LAV(MOD-bp) Indexed: 15.0 ml/m2 LVLd ap4: 9.8 cm SI(MOD-sp4): 39.9 ml/m2 LAV(MOD-sp2): 34.6 ml EDV(MOD-sp4): 162.2 ml LAV(MOD-sp4): 26.8 ml EDV(sp4-el): 169.8 ml LVAs ap4: 28.8 cm2 LVLs ap4: 8.7 cm ESV(MOD-sp4): 79.0 ml ESV(sp4-el): 80.5 ml EF(MOD-sp4): 51.3 % EF(sp4-el): 52.6 % SV(sp4-el): 89.2 ml LA A4 area: 12.2 cm2 LA dimension(2D): 2.9 cm RA A4 area: 12.3 cm2 TAPSE: 2.3 cm Time Measurements MV dec time: 0.23 sec Doppler Measurements & Calculations MV E max zain: 60.5 cm/sec Lat Peak E' Zain: 5.1 cm/sec Med Peak E' Zain: 7.1 cm/sec MV A max zain: 119.7 cm/sec E/E' lat: 12.0 E/E' med: 8.5 MV E/A: 0.51 MV V2 max: 126.2 cm/sec MV P1/2t max zain: 65.0 cm/sec Ao V2 max: 149.2 cm/sec MV max P.4 mmHg MV P1/2t: 82.8 msec Ao max P.9 mmHg MV V2 mean: 57.5 cm/sec Ao V2 mean: 97.1 cm/sec MV mean P.6 mmHg MV dec slope: 229.9 cm/sec2 Ao mean P.4 mmHg MV V2 VTI: 37.8 cm MVA(P1/2t): 2.7 cm2 Ao V2 VTI: 32.2 cm AV (velocity ratio): 0.66 LV V1 max: 96.4 cm/sec PA V2 max: 91.9 cm/sec TR max zain: 182.7 cm/sec LV V1 max P.7 mmHg PA V2 mean: 67.4 cm/sec TR max P.4 mmHg LV V1 mean P.8 mmHg LV V1 mean: 62.5 cm/sec LV V1 VTI: 21.4 cm ECHO/Echo Complete W/ Contrast Interpretation Summary Stage 1 diastolic dysfunction. The left ventricular ejection fraction is 50 %. Normal LV size. Mild tricuspid valve insufficiency. Contrast injection was performed. Ordering Physician: Eliezer Hardin Referring Physician: Eliezer Hardin Performed By: John Denise RCS 09/24/24 1413 Date _ Ryley Araiza MD CC: GENERAL OPERATIONS AGENT-C Eliezer Hardin; Dr. Robel Vargas DO ~ Date Dictated: 09/24/24906 Date Transcribed: 09/24/241412 Wrestling Coach: Signed [facility] Work Phone: Stress Reporton 09-24-2024 Stress Report [facility] Cardiovascular Services [address] [place] [id number] MR#: [id number] Acct: [id number] Name: HI MCCAIN Rep #: [id number] : 1950 74 From: Ryley Araiza MD Primary Care: Dr. Robel Vargas, Status: REG CLI Referring Dr: Eliezer Hardin GENERAL OPERATIONS AGENT GENERAL OPERATIONS AGENT-C Sex: M C Stress Test Report Exercise myocardial perfusion stress test. 74-year-old man with a history of coronary artery disease Stress protocol: Resting EKG demonstrates normal sinus rhythm with poor R wave progression suggestive of an anterior infarct and a rate of 60 bpm resting blood pressure is 122/78 mmHg. The patient exercised according to the regular Rober protocol for a total duration of 9 minutes attaining a maximum heart rate of 122 bpm which was 83% of maximum predicted heart rate; the maximum workload was 10.1 metabolic equivalents. At rest there were no ST or T wave changes noted to suggest ischemia and at peak exercise upsloping ST changes only were noted which did not meet the criteria for ischemia. No clinical angina was noted the test was terminated due to the target heart rate being achieved/fatigue. The peak blood pressure was 162/74 mmHg. Rate-pressure product was 19,000. Myocardial perfusion protocol. 11.7 mCi of technetium 99m sestamibi was injected at rest. The patient exercised according to regular Rober protocol for total duration of 9 minutes and at peak exercise 34.3 mCi of technetium 99m sestamibi was injected stress images were obtained stress and rest images were reconstructed in comparing the short axis vertical long and horizontal long axis. Gated images were also obtained. Perfusion SPECT analysis: Review of the stress images demonstrate normal uptake of tracer noted in all areas of the myocardium. A large defect is present in the mid to distal anterior wall and apex. The resting images similarly demonstrate normal uptake of tracer noted in all areas of the myocardium except for the mid to distal anterior wall and apex. The above is suggestive of a previous extensive anterior infarct with minimal mauro-infarct ischemia present. Gated SPECT analysis: The gated ejection fraction is 64%. Conclusion: Exercise myocardial perfusion stress test with evidence of previous anterior and apical infarct. Minimal mauro-infarct ischemia No angina noted Preserved ejection fraction. 09/24/24 1631 Date Ryley Araiza MD CC: CAMILO Hardin; Dr. Robel Vargas, Date Dictated: 09/24/241627 Date Transcribed: 09/24/241627 Wrestling Coach: CO Signed Normal [facility] Cardiology Visit Reporton Cardiology Visit Report [facility] [address] [place] [address] OFFICE VISIT Date of Service: 08/16/24 MR#: [id number] Acct: [id number] Name: HI MCCAIN Rep #: [id number] : 1950 Provider: CAMILO rudd Age/Sex: 74/M Location: [facility] Status: Signed HPI HPI History of Present Illness Details: This is a 74-year-old white male who presents today for an outpatient cardiovascular follow-up of his history of acute coronary syndrome/anterior STEMI (11-13-2017), status post diagnostic cardiac catheterization with subsequent LAD PCI with a 3.0x 38 and a 3.0x 20 Promus drug-eluting stent, diminished LV systolic function, hyperlipidemia, and hypertension. He denies chest, arm, jaw, or neck discomfort. He denies palpitations. He denies bilateral lower extremity edema. He denies claudication. He denies shortness of breath with activity, shortness of breath at rest, orthopnea, or PND. He denies chronic cough. He denies significant, sudden weight gain. He denies lightheadedness, dizziness, near-syncope, or syncope. He denies blood in urine, blood in stool, or epistaxis. He denies fever with chills. He denies myalgia. He denies fatigue. His exercise level has remained stable. Intake Vital Signs 01/20/23 13:09 10/23/23 08:59 08/16/24 15:57 Height 5 ft 11 in 5 ft 11 in 5 ft 11 in Weight: 197 lb 200 lb BMI 27.4 27.8 BP 118/69 124/76 H Blood Pressure Location Lt brachial Lt brachial Position Sitting Sitting Respiration 18 16 Pulse 61 64 Pulse Source NIBP Monitor Intake Visit Reasons: 18 m fu [employer] Operator Required: No Accompanied by: Significant Other Is patient in pain?: No Allergies No Known Allergies Allergy (Verified 08/16/24 16:01) Medications ???Medication ???Instructions ???Recorded ???Confirmed ???Type aspirin 81 mg chewable tablet 81 mg PO DAILY@0800 11/13/1708/16 History cholecalciferol (vitamin D3) 25 25 mcg PO DAILY 03/27/20 08/16/24 History mcg (1,000 unit) capsule multivitamin (Daily Multi-Vitamin 1 tab PO DAILY 03/27/20 08/16/24 History tablet) omega-3 fatty acids 1,000 mg 1,000 mg PO DAILY 03/27/20 5 History capsule (Fish Oil Concentrate) calcium 500 mg 1 tab PO DAILY 11/12/20 08/16/24 H istory (carb,gluconate)-magne sium 250 mg (gluc,oxide) tablet (Calcium Magnesium) nitroglycerin 0.4 mg sublingual See Rx Instructions .Route 4 08/16/24 Rx tablet .COMPLEX #50 tabs atorvastatin 80 mg tablet 80 mg PO QHS #90 tabs 10/23/23 Rx carvedilol 3.125 mg tablet 3.125 mg PO BID #180 tabs 06/17/24 08/16/24 Rx lisinopril 10 mg tablet 10 mg PO DAILY #90 TABLETS 4 08/16/24 Rx clopidogrel 75 mg tablet (Plavix) 75 mg PO DAILY #90 tabs 08/05/24 08/16/24 Rx Have you fallen in the past year?: No PFSH Medical History Acute anterior wall [place] Atherosclerosis of coronary artery of [place] heart without angina pectoris Ischemic cardiomyopathy Presence of stent in coronary artery ( 11/13/17) STEMI (ST elevation myocardial infarction) Surgical History History of appendectomy Presence of coronary angioplasty implant and graft ( 11/13/17) Family History Mother Heart disease CVA (cerebral vascular accident) Father Heart disease CVA (cerebral vascular accident) Other Myocardial infarction Social History Smoking Status: Never smoker alcohol intake: never substance use type: does not use caffeine: Yes Type: coffee Number of servings: 1 and tea ROS Const Const: Negative for fatigue, weakness, headache(s), daytime sleepiness or difficulty sleeping ENT ENT: Negative for headache(s), dizziness or Nosebleed/epistaxis Cardio Chest Pain: No Palpitations: No Edema: None Muscle aches with walking: None Resp Respiratory: Negative for SOB with activity, SOB at rest, SOB orthopnea SOB lying down or Cough GI GI: Negative nausea, vomiting or heartburn : Negative for hematuria or frequent nighttime urination/ nocturia Musc Musc: Negative for muscle aches/ myalgia Skin Skin: Negative non-healing lesions or rash Neuro Neuro: Negative for dizziness, lightheadedness, near syncope, headache(s) or weakness Endo Endo: Negative for fatigue Allergy Allergy/Immunology: Negative for rash Cardiology Exam Const Appearance: cooperative, healthy appearing, comfortable and no acute distress Nutritional Appearance: well nourished and overweight Orientation: alert, awake and oriented x3 Head Head: normal to inspection Ears: hearing grossly normal bilaterally Nose: external (more content not included)... Normal [facility] Basic Metabolic Profile (BMP )on 05-09-2024 BUN/CRE 20.4 RATIO High 10-20 [facility] Comment on above: Order Comment: DR.OF HOGUE ORDERED LIVER,LIPID DR VARGAS ORDERED BMP, PSA Performed By: #### L 501.9910, L500.4100, L500.2500, L500.3400 #### [facility] [address] [place], [address] CA,Total 9.3 mg/dL Normal 8.5-10.1 [facility] Comment on above: Order Comment: DR.OF HOGUE ORDERED LIVER,LIPID DR VARGAS ORDERED BMP, PSA Performed By: #### L 501.9910, L500.4100, L500.2500, L500.3400 #### [facility] [address] [place], [address] Chloride [Moles/Vol] 109 mmol/L High 98-107 [facility] Comment on above: Order Comment: DR.OF HOGUE ORDERED LIVER,LIPID DR VARGAS ORDERED BMP, PSA Performed By: #### L 501.9910, L500.4100, L500.2500, L500.3400 #### [facility] [address] [place], [address] CO2 [Moles/Vol] 27.0 mmol/L Normal 21.0-32.0 [facility] Comment on above: Order Comment: DR.OF HOGUE ORDERED LIVER,LIPID DR VARGAS ORDERED BMP, PSA Performed By: #### L 501.9910, L500.4100, L500.2500, L500.3400 #### [facility] [address] [place], [address] Creatinine [Mass/Vol] 1.08 mg/dL Normal 0.70-1.30 [facility] Comment on above: Order Comment: DR.OF HOGUE ORDERED LIVER,LIPID DR VARGAS ORDERED BMP, PSA Result Comment: The validity of the calculated GFR GFRAA in patients over 70 years has not been determined. Clinical correlation is essential. Performed By: #### L 501.9910, L500.4100, L500.2500, L500.3400 #### [facility] [address] [place], [address] EST GFR - AA 86 mL/min Normal >60 [facility] Comment on above: Order Comment: DR.OF HOGUE ORDERED LIVER,LIPID DR VARGAS ORDERED BMP, PSA Result Comment: Afri can [place] GFR Calc Performed By: #### L 501.9910, L500.4100, L500.2500, L500.3400 #### [facility] [address] [place], [address] GAP 4 Low 5-15 [facility] Comment on above: Order Comment: DR.OF HOGUE ORDERED LIVER,LIPID DR VARGAS ORDERED BMP, PSA Performed By: #### L 501.9910, L500.4100, L500.2500, L500.3400 #### [facility] [address] [place], [address] GFR/1.73 sq M.predicted among non-blacks MDRD (S/P/Bld) [Vol rate/Area] 71 mL/min/{1.73_m2} Normal >60 [facility] Comment on above: Order Comment: DR.OF HOGUE ORDERED LIVER,LIPID DR VARGAS ORDERED BMP, PSA Result Comment: Non- GFR Calc Performed By: #### L 501.9910, L500.4100, L500.2500, L500.3400 #### [facility] [address] [place], [address] Glucose [Mass/Vol] 103 mg/dL Normal 74-106 [facility] Comment on above: Order Comment: DR.OF HOGUE ORDERED LIVER,LIPID DR VARGAS ORDERED BMP, PSA Result Comment: Fast ing Glucose result from 100 to 125 mg/dL suggests IMPAIRED HOMEOSTASIS per A.D.A. criteria. Performed By: #### L 501.9910, L500.4100, L500.2500, L500.3400 #### [facility] [address] [place], [address] Potassium [Moles/Vol] 4.3 mmol/L Normal 3.5-5.1 [facility] Comment on above: Order Comment: DR.OF HOGUE ORDERED LIVER,LIPID DR VARGAS ORDERED BMP, PSA Performed By: #### L 501.9910, L500.4100, L500.2500, L500.3400 #### [facility] [address] [place], [address] Sodium [Moles/Vol] 140 mmol/L Normal 136-145 [facility] Comment on above: Order Comment: DR.OF HOGUE ORDERED LIVER,LIPID DR VARGAS ORDERED BMP, PSA Performed By: #### L 501.9910, L500.4100, L500.2500, L500.3400 #### [facility] [address] [place], [address] Urea nitrogen [Mass/Vol] 22 mg/dL High 7-18 [facility] Comment on above: Order Comment: DR.OF HOGUE ORDERED LIVER,LIPID DR VARGAS ORDERED BMP, PSA Performed By: #### L 501.9910, L500.4100, L500.2500, L500.3400 #### [facility] [address] [place], [address] Lipid Profileon 05-09-2024 Cholesterol [Mass/Vol] 101 mg/dL Normal 200 [facility] Comment on above: Order Comment: DR.OF HOGUE ORDERED LIVER,LIPID DR VARGAS ORDERED BMP, PSA Result Comment: <200 mg/dL Desirable 200-240 mg/dL Borderline >240 mg/dL High Risk Performed By: #### L 501.9910, L500.4100, L500.2500, L500.3400 #### [facility] [address] [place], [address] Cholesterol in HDL [Mass/Vol] 39 mg/dL Low [facility] Comment on above: Order Comment: DR.OF HOGUE ORDERED LIVER,LIPID DR VARGAS ORDERED BMP, PSA Result Comment: The drugs N-Acetylcysteine and Metamizole may falsely depress this assay. Reference Range HDL <40 mg/dL Low HDL Cholesterol HDL >or= 60 mg/dL High HDL Cholesterol Performed By: #### L 501.9910, L500.4100, L500.2500, L500.3400 #### [facility] [address] [place], [address] Cholesterol in LDL [Mass/Vol] 52 mg/dL Normal 0-130 [facility] Comment on above: Order Comment: DR.OF HOGUE ORDERED LIVER,LIPID DR VARGAS ORDERED BMP, PSA Performed By: #### L 501.9910, L500.4100, L500.2500, L500.3400 #### [facility] [address] [place], [address] Cholesterol in VLDL [Mass/Vol] 10 mg/dL Normal 5-40 [facility] Comment on above: Order Comment: DR.OF HOGUE ORDERED LIVER,LIPID DR VARGAS ORDERED BMP, PSA Performed By: #### L 501.9910, L500.4100, L500.2500, L500.3400 #### [facility] [address] [place], [address] Triglyceride [Mass/Vol] 50 mg/dL Normal [facility] Comment on above: Order Comment: DR.OF HOGUE ORDERED LIVER,LIPID DR VARGAS ORDERED BMP, PSA Result Comment: The drugs N-Acetylcysteine and Metamizole may falsely depress this assay. Serum Triglycerides Reference Interval Normal <150 mg/dL Borderline high 150 - 199 mg/dL High 200 - 499 mg/dL Very High > or = 500 mg/dL Performed By: #### L 501.9910, L500.4100, L500.2500, L500.3400 #### [facility] [address] [place], [address] Liver Profileon 05-09-2024 Albumin [Mass/Vol] 3.7 g/dL Normal 3.2-5.0 [facility] Comment on above: Order Comment: DR.OF HOGUE ORDERED LIVER,LIPID DR VARGAS ORDERED BMP, PSA Performed By: #### L 501.9910, L500.4100, L500.2500, L500.3400 #### [facility] [address] [place], [address] ALK P 78 U/L Normal 45-117 [facility] Comment on above: Order Comment: DR.OF HOGUE ORDERED LIVER,LIPID DR VARGAS ORDERED BMP, PSA Performed By: #### L 501.9910, L500.4100, L500.2500, L500.3400 #### [facility] [address] [place], [address] ALT [Catalytic activity/Vol] 36 U/L Normal 16-61 [facility] Comment on above: Order Comment: DR.OF HOGUE ORDERED LIVER,LIPID DR VARGAS ORDERED BMP, PSA Performed By: #### L 501.9910, L500.4100, L500.2500, L500.3400 #### [facility] [address] [place], [address] AST [Catalytic activity/Vol] 28 U/L Normal 15-37 [facility] Comment on above: Order Comment: DR.OF HOGUE ORDERED LIVER,LIPID DR VARGAS ORDERED BMP, PSA Performed By: #### L 501.9910, L500.4100, L500.2500, L500.3400 #### [facility] [address] [place], [address] Bilirubin [Mass/Vol] 0.80 mg/dL Normal 0.20-1.00 [facility] Comment on above: Order Comment: DR.OF HOGUE ORDERED LIVER,LIPID DR VARGAS ORDERED BMP, PSA Result Comment: For patients on eltrombopag therapy, use of Dimension [place] TBIL is not recommended. Performed By: #### L 501.9910, L500.4100, L500.2500, L500.3400 #### [facility] [address] [place], [address] Bilirubin.direct [Mass/Vol] 0.24 mg/dL Normal 0.00-0.30 [facility] Comment on above: Order Comment: DR.OF HOGUE ORDERED LIVER,LIPID DR VARGAS ORDERED BMP, PSA Performed By: #### L 501.9910, L500.4100, L500.2500, L500.3400 #### [facility] [address] [place], [address] Globulin (S) [Mass/Vol] 2.9 g/dL Normal 2.2-4.2 [facility] Comment on above: Order Comment: DR.OF HOGUE ORDERED LIVER,LIPID DR VARGAS ORDERED BMP, PSA Performed By: #### L 501.9910, L500.4100, L500.2500, L500.3400 #### [facility] [address] [place], [address] T PROT 6.6 g/dL Normal 6.4-8.2 [facility] Comment on above: Order Comment: DR.OF HOGUE ORDERED LIVER,LIPID DR VARGAS ORDERED BMP, PSA Performed By: #### L 501.9910, L500.4100, L500.2500, L500.3400 #### [facility] [address] [place], [address] PSA,Total - Annual Screenon 05-09-2024 PSA,TOT SCREEN 0.10 ng/mL Normal 0.00-4.00 [facility] Comment on above: Order Comment: DR.OF HOGUE ORDERED LIVER,LIPID DR VARGAS ORDERED BMP, PSA Result Comment: This test was performed using the TPSA assay method for the [employer] chemistry system. Values obtained with different assay methods cannot be used interchangably. When changing PSA assays in the course of monitoring a patient, additional sequential testing should be carried out to confirm baseline values. Performed By: #### L 501.9910, L500.4100, L500.2500, L500.3400 #### [facility] [address] [place], [address] Cardiology Visit Reporton Cardiology Visit Report [facility] [address] [place] [address] OFFICE VISIT Date of Service: 10/23/23 MR#: [id number] Acct: [id number] Name: HI MCCAIN Rep #: [id number] : 1950 Provider: CAMILO rudd Age/Sex: 73/M Location: [facility] Status: Signed with Addenda ADDENDUM by CAMILO Hardin on 10/23/23 at 0941 Cardiology Exam Const Appearance: cooperative, healthy appearing, comfortable and no acute distress Nutritional Appearance: well nourished and overweight Orientation: alert, awake and oriented x3 Head Head: normal to inspection Ears: hearing grossly normal bilaterally Nose: external nose normal Face and Sinus: face symmetric Mouth: moist mucous membranes Eyes General: appearance normal, both eyes and all related structures Eyelids: eyelids normal EOM: EOM intact bilaterally Neck Neck: normal visual inspection and no JVD Carotids: normal carotid upstroke Chest Chest inspection: normal inspection of the chest, symmetric chest movement and normal respiratory effort; Negative cough Auscultation: Bilateral: Clear to Auscultation Cardio Rate: regular rate Rhythm: regular rhythm Heart sounds: S1 normal and S2 normal; Negative rub, gallop or murmur GI GI: normal to inspection Neuro General: patient alert, patient awake, patient oriented x3 and CN's II-XI intact bilaterally Skin Skin: no rashes or lesions noted Extremities Pulses: Normal: Right Posterior Tibial Pulse, Left Posterior Tibial Pulse, Right Radial Pulse and Left Radial Pulse Lower Extremity Edema: None: Bilateral Psych Psychological: normal affect Assessment and Plan Assessment and Plan (1) Atherosclerosis of coronary artery of [place] heart without angina pectoris: Status: Chronic Qualifiers: Coronary Disease-Associated Artery/Lesion type: [place] artery Qualified Code(s): I25.10 - Atherosclerotic heart disease of [place] coronary artery without angina pectoris Comment: PCI-DELMY-Mid Lad w/ 3.0 x 38 mm Resolute Stent and Xcz-YFM-Nmryqr of the D3 w/ 3.0 x 22 mm Resolute stent 11/13/17 Plan: His last stress test in November 2020 was negative for ischemia at 11 METS. The patient was reminded of LDL goal of 70 and below for secondary prevention. We discussed stress test to evaluated pain and shortness of breath further. He wishes to observe and reconsider at next appointment. Red flag symptoms reviewed with him. He acknowledges understanding. Lipid panel from 10/12/2023 showed Total Cholesterol: 116, HDL: 41, LDL: 63, and Triglycerides: 59. He will continue Atorvastatin 80mg PO daily. (2) Ischemic cardiomyopathy: Status: Chronic Plan: Ischemic cardiomyopathy with preserved EF: Echocardiogram 11/24/2020-EF: 50% Twelve-lead EC11/12/2020-sinus bradycardia with QRS 132 [place] [employer] Functional Class: II ACC/AHA stage: C Guideline Directed Medical Therapy: Carvedilol 3.125 mg p.o. twice daily Lisinopril 10 mg p.o. daily This appears stable. He appears in a euvolemic states. We will continue to monitor. Will consider repeat echocardiogram if shortness of breath continues along with laboratory testing. Medications: Refilled atorvastatin 80 mg PO QHS 90 tabs 3RF Plan Details Follow Up: Keep as is ([employer]) 10/23/23 0941 Date Eliezer Hardin NP GENERAL OPERATIONS AGENT-C cc: Dr. Robel Vargas, DO * Signed HPI HPI History of Present Illness Details: This is a 73-year-old white male who presents today for an outpatient cardiovascular follow-up of his history of acute coronary syndrome/anterior STEMI (11-13-2017), status post diagnostic cardiac catheterization with subsequent LAD PCI with a 3.0x 38 and a 3.0x 20 Promus drug-eluting stent, diminished LV systolic function, hyperlipidemia, and hypertension. He acknowledges dull chest discomfort during times of increased exertion when he was moving barn stones. This improves with rest. He denies this with routine activities or during times of exercise. He denies similar symptoms as he had prior to STEMI in 2018. He acknowledges palpitations going up stairs quickly. He describes this as fast. He acknowledges shortness of breath with activity. He denies shortness breath at rest, orthopnea, cough, or PND. He denies edema or claudication. He acknowledges occasional lightheadedness when standing too quickly. He denies dizziness, near-syncope, or syncope. He denies fatigue. 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 Normal [facility] Basophil percentageOrdered B y: Eliezer Hardin on 10-12-2023 Bilirubin [Mass/Vol] 0.60 mg/dL 0.20-1.00 [facility] Comment on above: For patients on eltr ombopag therapy, use of Dimension [place] TBIL is not recommended. Cholesterol [Mass/Vol] 116 mg/dL <200 [facility] Comment on above: <200 mg/dL Desirable 200-240 mg/dL Borderline >240 mg/dL High Risk Protein [Mass/Vol] 6.5 g/dL 6.4-8.2 [facility] Triglyceride [Mass/Vol] 59 mg/dL <199 [facility] Comment on above: The drugs N-Acetylcy steine and Metamizole may falsely depress this assay.Serum Triglycerides Reference Interval Normal <150 mg/dL Borderline high 150 - 199 mg/dL High 200 - 499 mg/dL Very High > or = 500 mg/dL Direct bilirubinOrdered By: Eliezer Hardin on 10-12-2023 Bilirubin.direct [Mass/Vol] 0.19 mg/dL 0.00-0.30 [facility] - Chemistry and C hemistry - challengeOrdered By: Eliezer Hardin on 10-12-2023 ALP [Catalytic activity/Vol] 77 U/L 45-117 [facility] ALT [Catalytic activity/Vol] 42 U/L 16-61 [facility] Cholesterol in HDL [Mass/Vol] 41 mg/dL >40 [facility] Comment on above: The drugs N-Acetylcy steine and Metamizole may falsely depress this assay. Reference Range HDL <40 mg/dL Low HDL Cholesterol HDL >or= 60 mg/dL High HDL Cholesterol Cholesterol in LDL [Mass/Vol] 63 mg/dL 0-130 [facility] Globulin (S) [Mass/Vol] 3.0 g/dL 2.2-4.2 [facility] Lipid Profileon 10-12-2023 Cholesterol [Mass/Vol] 116 mg/dL Normal 200 [facility] Comment on above: Result Comment: <200 mg/dL Desirable 200-240 mg/dL Borderline >240 mg/dL High Risk Performed By: #### L 500.4100, L500.3400 #### [facility] [address] [place], [address] Cholesterol in HDL [Mass/Vol] 41 mg/dL Normal [facility] Comment on above: Result Comment: The drugs N-Acetylcysteine and Metamizole may falsely depress this assay. Reference Range HDL <40 mg/dL Low HDL Cholesterol HDL >or= 60 mg/dL High HDL Cholesterol Performed By: #### L 500.4100, L500.3400 #### [facility] [address] [place], [address] Cholesterol in LDL [Mass/Vol] 63 mg/dL Normal 0-130 [facility] Comment on above: Performed By: #### L 500.4100, L500.3400 #### [facility] [address] [place], [address] Cholesterol in VLDL [Mass/Vol] 12 mg/dL Normal 5-40 [facility] Comment on above: Performed By: #### L 500.4100, L500.3400 #### [facility] [address] [place], [address] Triglyceride [Mass/Vol] 59 mg/dL Normal [facility] Comment on above: Result Comment: The drugs N-Acetylcysteine and Metamizole may falsely depress this assay. Serum Triglycerides Reference Interval Normal <150 mg/dL Borderline high 150 - 199 mg/dL High 200 - 499 mg/dL Very High > or = 500 mg/dL Performed By: #### L 500.4100, L500.3400 #### [facility] [address] [place], [address] Liver Profileon 10-12-2023 Albumin [Mass/Vol] 3.5 g/dL Normal 3.2-5.0 [facility] Comment on above: Performed By: #### L 500.4100, L500.3400 #### [facility] [address] [place], [address] ALK P 77 U/L Normal 45-117 [facility] Comment on above: Performed By: #### L 500.4100, L500.3400 #### [facility] [address] [place], [address] ALT [Catalytic activity/Vol] 42 U/L Normal 16-61 [facility] Comment on above: Performed By: #### L 500.4100, L500.3400 #### [facility] [address] [place], [address] AST [Catalytic activity/Vol] 32 U/L Normal 15-37 [facility] Comment on above: Performed By: #### L 500.4100, L500.3400 #### [facility] [address] [place], [address] Bilirubin [Mass/Vol] 0.60 mg/dL Normal 0.20-1.00 [facility] Comment on above: Result Comment: For patients on eltrombopag therapy, use of Dimension [place] TBIL is not recommended. Performed By: #### L 500.4100, L500.3400 #### [facility] [address] [place], [address] Bilirubin.direct [Mass/Vol] 0.19 mg/dL Normal 0.00-0.30 [facility] Comment on above: Performed By: #### L 500.4100, L500.3400 #### [facility] [address] [place], [address] Globulin (S) [Mass/Vol] 3.0 g/dL Normal 2.2-4.2 [facility] Comment on above: Performed By: #### L 500.4100, L500.3400 #### [facility] [address] [place], [address] T PROT 6.5 g/dL Normal 6.4-8.2 [facility] Comment on above: Performed By: #### L 500.4100, L500.3400 #### [facility] [address] [place], [address] No Panel InformationOrdered By: Eliezer Hardin on 10-12-2023 VLDL Cholesterol 12 mg/dL 5-40 [facility] Thin prep Papanicolaou smear with manual screeningOrdered By: Eliezer Hardin on 10-12-2023 Thin prep Papanicolaou smear with manual screening 3.5 g/dL 3.2-5.0 [facility] Thin prep Papanicolaou smear with manual screening 32 U/L 15-37 [facility] Basophil percentageOrdered B y: Eliezer Hardin on 02-03-2023 Bilirubin [Mass/Vol] 0.50 mg/dL 0.20-1.00 [facility] Comment on above: For patients on eltr ombopag therapy, use of Dimension [place] TBIL is not recommended. Cholesterol [Mass/Vol] 122 mg/dL <200 [facility] Comment on above: <200 mg/dL Desirable 200-240 mg/dL Borderline >240 mg/dL High Risk Protein [Mass/Vol] 6.3 g/dL 6.4-8.2 [facility] Triglyceride [Mass/Vol] 61 mg/dL <199 [facility] Comment on above: The drugs N-Acetylcy steine and Metamizole may falsely depress this assay.Serum Triglycerides Reference Interval Normal <150 mg/dL Borderline high 150 - 199 mg/dL High 200 - 499 mg/dL Very High > or = 500 mg/dL Direct bilirubinOrdered By: Eliezer Hardin on 02-03-2023 Bilirubin.direct [Mass/Vol] 0.12 mg/dL 0.00-0.30 [facility] - Chemistry and C hemistry - challengeOrdered By: Eliezer Hardin on 02-03-2023 ALP [Catalytic activity/Vol] 74 U/L 45-117 [facility] ALT [Catalytic activity/Vol] 39 U/L 16-61 [facility] Globulin (S) [Mass/Vol] 3.0 g/dL 2.2-4.2 [facility] Serum or plasma albumin brittney urement (mass/volume)Ordered By: Eliezer Hardin on 02-03-2023 Albumin [Mass/Vol] 3.3 g/dL 3.2-5.0 [facility] Serum or plasma cholesterol in HDL measurement (mass/volume)Ordered By: Eliezer Hardin on 02-03-2023 Cholesterol in HDL [Mass/Vol] 42 mg/dL >40 [facility] Comment on above: The drugs N-Acetylcy steine and Metamizole may falsely depress this assay. Reference Range HDL <40 mg/dL Low HDL Cholesterol HDL >or= 60 mg/dL High HDL Cholesterol Serum or plasma cholesterol in VLDL measurement (mass/volume)Ordered By: Eliezer Hardin on 02-03-2023 Cholesterol in VLDL [Mass/Vol] 12 mg/dL 5-40 [facility] Serum or plasma low density lipoprotein (LDL) cholesterol measurement (mass/volume)Ordered By: Eliezer Hardin on 02-03-2023 Cholesterol in LDL [Mass/Vol] 68 mg/dL 0-130 [facility] Thin prep Papanicolaou smear with manual screeningOrdered By: Eliezer Hardin on 02-03-2023 Thin prep Papanicolaou smear with manual screening 25 U/L 15-37 [facility] CBFon 03-30-2017 CBF . MICRO - MicrobiologyPROCEDURE: Culture Body Fluid with Gram Stain [*1]SOURCE: Synovial Fluid BODY SITE: Knee RCOLLECTED DATE/TIME: 03/24/2017 17:42 EDT RECEIVED DATE/TIME: 03/25/2017 17:45 EDTSTART DATE/TIME: 03/25/2017 17:45 EDT FREE TEXT SOURCE:FINAL REPORTSFinal Report []Verified Date/Time/Personnel: 03/30/2017 18:00 EDTCulture: No Growth at 5 days.PRELIMINARY REPORTSPreliminary Report []Verified Date/Time/Personnel: 03/25/2017 18:59 EDTCulture has been received in lab and is no growth to date. Routine cultures are held for 5 days.STAINSGS []Verified Date/Time/Personnel: 03/25/2017 23:09 EDTSedimentedRare Polymorphonuclear cellsNo organisms seen.Performing Locations*1: This test was performed at: [address], [address] [place] [address] ([place]) Comment on above: Performed By: #### C BF ####[place] [address] .CRYBF Path Reviewon 017 CRYPF Path Review Negative [facility] ([place]) Comment on above: Result Comment: Elec tronically signed by: JOEY HOLLAND MD03.27.2017 15:25 EDT Performed By: #### S YNCT ####[place] [address]#### CRYBF, CRYBFPR ####[place] [address] CRYBFon 03-27-2017 Crystal BF Sp Synovial fluid [facility] ([place]) Comment on above: Order Comment: synov ial fluid Performed By: #### S YNCT ####[place] [address]#### CRYBF, CRYBFPR ####[place] [address] SYNCTon 03-24-2017 Cells Counted (synovial) 100 [facility] ([place]) Comment on above: Performed By: #### S YNCT ####[place] [address]#### CRYBF, CRYBFPR ####[place] [address] Lymphocytes/100 leukocytes 93 % [facility] ([place]) Comment on above: Performed By: #### S YNCT ####[facility] [place], [place] [id number]#### CRYBF, CRYBFPR ####[address] [address] Mononuclear Cell % (synovial) 4 % Normal [facility] ([place]) Comment on above: Performed By: #### S YNCT ####[place] [address]#### CRYBF, CRYBFPR ####[address] [address] Neutrophils/100 WBC Auto (Bld) 3 % Normal 0-24 [facility] ([place]) Comment on above: Performed By: #### S YNCT ####[place] [address]#### CRYBF, CRYBFPR ####[place] [address] Urine, clarity Clear Normal [facility] ([place]) Comment on above: Performed By: #### S YNCT ####[place] [address]#### CRYBF, CRYBFPR ####[place] [address] Urine, color Straw Normal [facility] ([place]) Comment on above: Performed By: #### S YNCT ####[place] [address]#### CRYBF, CRYBFPR ####[place] [address] White Blood Cells (synovial) 700 /mm3 High 0-199 [facility] ([place]) Comment on above: Performed By: #### S YNCT ####[place] [address]#### CRYBF, CRYBFPR ####[place] [address] XR KNEE 4 VIEWS RIGHTon 10-0 XR KNEE 4 VIEWS RIGHT ORIGINALRight knee 4 views including sunrise view HISTORY: Swelling COMPARISON: None There is mild osteoarthritis greatest at the medial compartment. Small marginal patellar spurs are also seen. There is a moderate knee joint effusion present. No fracture, dislocation or other acute osseous finding seen. Interpreted By: Donovan Porrasreliminary Report By: Donovan Porras MDElectronically Signed By: Donovan Porras MD Dictated Date: 03/24/2017 10:28:48 AM Prelim Date: 03/24/2017 10:28:48 AM Sign Date: 03/24/2017 10:29:13 AM Normal [facility] ([place]) Vital Signs Date Time Vital Sign Value Performing Clinician Faci lity 08-16-2024 15:57-0500 Body height 180.[address] Robel Vargas DO Work Phone: [facility] 08-16-2024 15:57-0500 Body mass index (BMI) [Ratio] 27.8 kg/m2 Dr. Robel Vargas DO Work Phone: [facility] 08-16-2024 15:57-0500 Body weight 90.[address] Robel Vargas DO Work Phone: [facility] 08-16-2024 15:57-0500 Diastolic blood pressure 76 mm[Hg] Dr. Robel Vargas DO Work Phone: [facility] 08-16-2024 15:57-0500 Heart rate 64 /min Dr. Robel Vargas DO Work Phone: [facility] 08-16-2024 15:57-0500 Respiratory rate 16 /min Dr. Robel Vargas DO Work Phone: [facility] 08-16-2024 15:57-0500 Systolic blood pressure 124 mm[Hg] Dr. Robel Vargas DO Work Phone: [facility] 01-20-2023 13:09-0400 Body height 180.[address] Robel Vargas Work Phone: [facility] 01-20-2023 13:09-0400 Body mass index (BMI) [Ratio] 26.9 kg/m2 Dr. Robel Vargas Work Phone: [facility] 01-20-2023 13:09-0400 Body weight 87.[address] Robel Vargas Work Phone: [facility] 01-20-2023 13:09-0400 Diastolic blood pressure 79 mm[Hg] Dr. Robel Vargas Work Phone: [facility] 01-20-2023 13:09-0400 Heart rate 68 /min Dr. Robel Vargas Work Phone: [facility] 01-20-2023 13:09-0400 Respiratory rate 18 /min Dr. Robel Vargas Work Phone: [facility] 01-20-2023 13:09-0400 SaO2% (BldA) [Mass fraction] 97 % Dr. Robel Vargas Work Phone: [facility] 01-20-2023 13:09-0400 Systolic blood pressure 126 mm[Hg] Dr. Robel Vargas Work Phone: [facility] Encounters Encounter Date Encounter Type Care Provider Facility Start: 09-24-2024 ambulatory Robel Vargas Facility:[facility] Start: 09-24-2024 Non-patient / Non-visit [facility] Start: 09-24-2024 End: 09-24-[address] Robel Vargas DO Work Phone: [facility] Work Phone: Start: 09-24-2024 End: 09-24-2024 Patient encounter procedure Eliezer PAGE -[facility] Work Phone: Start: 09-24-2024 End: 09-24-2024 ambulatory Robel Vargas Facility:[facility] Start: 08-16-2024 End: 08-16-2024 Patient encounter procedure Eliezer PAGE -[facility] Work Phone: Start: 08-16-2024 End: 08-16-2024 ambulatory Robel Sam Facility:[facility] Start: 05-09-2024 End: 05-09-2024 ambulatory Robel Sam Facility:[facility] Start: 10-23-2023 End: 10-23-2023 ambulatory Robeljulio Oteror Facility:[facility] Start: 10-12-2023 End: 10-12-2023 ambulatory [facility] Work Phone: Start: 10-12-2023 End: 10-12-2023 Patient encounter procedure [facility] Work Phone: Start: 10-12-2023 End: 10-12-2023 ambulatory Eliezer Burr Wilfred GENERAL OPERATIONS AGENT Facility:[facility] Start: 02-03-2023 End: 02-03-[address] Robel Vargas Work Phone: [facility] Work Phone: Start: 02-03-2023 End: 02-03-[address] Robel Vargas Work Phone: [facility] Work Phone: Start: 01-20-2023 End: 01-20-[address] Robel Vargas Work Phone: [facility] Work Phone: Start: 03-24-2017 End: 03-29-2017 Ambulatory ROBEL VARGAS Facility:[facility] Start: 03-24-2017 End: 03-25-2017 Ambulatory ROBEL VARGAS Facility:[facility] Procedures Date Procedure Procedure Detail Performing Clinician Start: 09-24-2024 Radionuclide imaging of perfusion of myocardium under exercise stress Dr. Robel Vargas DO Work Phone: Payers Date Payer Category Payer Self-pay [id number] 2023 Unknown [id number] 2017 Unknown [id number] Medicare MEDICARE PART A B [id number] Private Health Insurance AETNA [id number] Unknown [employer] [id number] Unknown [facility] [id number] Unknown [id number] 2 Unknown [id number] 2 Unknown [id number] 2 Unknown [id number] 2 Unknown [id number] 2 Unknown [id number] 2 Social History Date Type Detail Facility Start: 01-20-2023 Tobacco smoking status WVIS Unknown if ever smoked [facility] Start: 11-13-2017 Spouse/ Signif icant Other [facility] Start: 11-16-2017 Non-smoker [facility] Start: 1950 Sex Assigned At Male [facility] Start: 10-23-2023 Tobacco smoking status NHIS Never smoked tobacco (finding) [facility] Start: 09-27-2024 Sex Male (finding) [facility] Evaluation note 08-16-2024 Note Date & Type Note Facility 08-16-2024 Evaluation note Diagnosis Onset Date Resolution Atherosclerosis of coronary artery of [place] heart without angina pectoris chronic August 16 3:55pm Ischemic cardiomyopathy chronic F ebruary 2024 3:55pm [facility] Work Phone: Evaluation note Note Date & Type Note Facility Evaluation note Diagnosis Onset Date Atherosclerosis of coronary artery of [place] heart without angina pectoris chronic Ischemic cardiomyopathy obiee consultant ayse [facility] Work Phone: Evaluation note Note Date & Type Note Facility Evaluation note No assessment information availa ble [facility] Work Phone: Reason for referral (narrative) Note Date & Type Note Facility Reason for referral (narrative) No reason for referral information available [facility] Work Phone: Summary Purpose Family History No Family History Records Found Relationship Condition Age at Onset Recorded Date/T anatoly Not Specified Myocardial infarction Unknown mother Cardiac disease Unknown Cerebrovascular accident (CVA) Unknown father Cardiac disease Unknown Advance Directives No Advanced Directives Records Found Advance Directive Response Recorded Date/ Time Living Will No November 25, 2021 9 :12am Power of Grinder Set Up Operator Surface No November 25, 2021 9:12am Advance Directive Response Recorded Date/ Time Living Will No November 25, 2021 9 :12am Do you have a Healthcare Power of Grinder Set Up Operator Surface? No November 25, 2021 9:12am Chief Complaint and Reason for Visit Chief Complaint 1 Y FU INT LABS Reason for Visit Atherosclerosis of c oronary artery of [place] heart without angina pectoris Ischemic cardiomyopathy Chief Complaint Admit Date 18 m fu August 16, 2024 3:55pm CAD September 24, 2024 6:17 am Reason for Visit Admit Date Atherosclerosis of coronary artery of [place] heart without angina pectoris August 16, 2024 3:55pm Ischemic cardiomyopathy August 16, 2 025 3:55pm Additional Source Comments (unrecognized sect ion and content) No Status Records FoundNo Status Records Found INFORMATION SOURCE (unrecogn ized section and content) DATE CREATED AUTHOR 12/12/2017 [facility] ([place]) DATE CREATED AUTHOR AUTHOR'S ORGANIZ ATION 09/29/2024 [facility] Care Teams (unrecognized sec tion and content) Team Status: Active Member Role Status Dates Dr. Robel Vargas , DO Family Provider Active Dr. Robel Vargas , DO Primary Care Provider Active Team Status: Inactive Member Role Status Dates Dr. Robel Vargas , DO Primary Care Provider, Referring Provider Active Eliezer Hardin GENERAL OPERATIONS AGENT, GENERAL OPERATIONS AGENT-C Attending Provider Active Team Status: Inactive Member Role Status Dates Dr. Robel Vargas , DO Primary Care Provider Active Eliezer Hardin GENERAL OPERATIONS AGENT, GENERAL OPERATIONS AGENT-C Attending Provider, Referring Pro vider Active Team Status: Inactive Member Role Status Dates Dr. Robel Vargas DO Primary Care Provider Active Eliezer Hardin GENERAL OPERATIONS AGENT, GENERAL OPERATIONS AGENT-C Attending Provider Active Team Status: Active Member Role Status Dates Dr. Robel Vargas DO Primary Care Provider Active Team Status: Inactive Member Role Status Dates Dr. Robel Vargas DO Primary Care Provider Active Start: August 16, 2024 End: August 16, 2024 Dr. Robel Vargas DO Referring Provider Active Start: August 16, 2024 End: August 16, 2024 Eliezer Hardin GENERAL OPERATIONS AGENT, GENERAL OPERATIONS AGENT-C Attending Provider Active S tart: August 16, 2024 End: August 16, 2024 Team Status: Inactive Member Role Status Dates Dr. Robel Vargas DO Primary Care Provider Active Start: September 24, 2024 End: September 24, 2024 Eliezer Hardin GENERAL OPERATIONS AGENT, GENERAL OPERATIONS AGENT-C Attending Provider Active S tart: September 24, 2024 End: September 24, 2024 Eliezer Hardin GENERAL OPERATIONS AGENT, GENERAL OPERATIONS AGENT-C Referring Provider Active S tart: September 24, 2024 End: September 24, 2024 Team Status: Active Member Role Status Dates Dr. Robel Vargas DO Primary Care Provider Active Start: September 24, 2024 Dr. Ryley Araiza MD Attending Provider Active S tart: September 24, 2024 Goals (unrecognized section and content) Goals may be documented in a n alternate sectionGoals may be documented in an alternate sectionGoals may be documented in an alternate section FOR RECORDS PERTAINING TO PATIENTS WHO ARE OR HAVE BEEN ENROLLED IN A CHEMICAL DEPENDENCY/SUBSTANCEABUSE PROGRAM, SOME INFORMATION MAY BE OMITTED. This clinical summary was aggregated from multiple sources. Caution should be exercised in using it in the provision of clinical care. This summary normalizes information from multiple sources, and as a consequence, information in this document may materially change the coding, format and clinical context of patient data. In addition, data may be omitted in some cases. CLINICAL DECISIONS SHOULD BE BASED ON THE PRIMARY CLINICAL RECORDS. [employer] provides no warranty or guarantee of the accuracy or completeness of information in this document.
[2025-02-06 09:25] LABS: AST(SGOT) 25 U/L (<=37); Alanine Aminotransfer ALT/SGPT 29 U/L (<=46); Albumin, Serum 3.9 g/dL (3.4-4.8); Alkaline Phosphatase 78 U/L (40-129); Anion Gap 9 (5-15); BUN 14 mg/dL (4-19); BUN/Creat Ratio 12.5 RATIO (10-20); Bilirubin, Direct 0.27 mg/dL (0.00-0.30); Calcium,Total 9.6 mg/dL (7.6-11.0); Carbon Dioxide 26.7 mmol/L (21.0-32.0); Chloride 106 mmol/L (98-108); Cholesterol 118 mg/dL (<=200); Globulin 2.3 g/dL (2.2-4.2); Glucose 95 mg/dL (70-99); Low Density Lipoprotein Calc. 64 mg/dL; Potassium 4.9 mmol/L (3.3-5.1); Triglycerides 74 mg/dL; Very Low Density Lipoprotein 15 mg/dL (5-40); cholesterol:hdl ratio screen 3.04
== END | disposition home or self-care (01) ==
LOC: LAB 07:22
PROVIDERS: PCP Family Medicine; Referring Provider Family Medicine; Visit Provider Family Medicine
DX: Z13.1 Encounter for screening for diabetes mellitus (principal); Z12.5 Encounter for screening for malignant neoplasm of prostate; I25.10 Atherosclerotic heart disease of native coronary artery without angina pectoris
CPT/HCPCS: 36415; 80053; 80061; 82248

== ENCOUNTER → 2025-06-03 | Outpatient (CLI) | payer MEDICARE, SELFPAY ==
[2025-06-03 12:13] LABS: PSA,Total - Annual Screen 0.11 ng/mL (0.02-4.00)
--- OUTSIDE RECORDS SUMMARY | 2025-06-03 17:04 | XMS RPT_ITS | CCD ---
Author Organization [facility] Care Team Providers Care Family Consumer Science F[employer] Teacher Name Role Phone SAM, ROBEL A. Unavailable Unavailable ASM, ROBEL A. Unavailable Unavailable SAM, ROBEL A. Unavailable Unavailable SAM, ROBEL ALori Unavailable Unavailable Sam, Dr. Valentine Primary Care Provider 1([facility])[phone] Sam, Dr. Valentine Referring Provider 1([facility])[phone] Roof PAPER PRODUCTS MACHINE OPERATOR, PAPER PRODUCTS MACHINE OPERATOR-C Eliezer Burr Attending Provider 1([facility])[phone] Sam DO, Dr. Valentine Primary Care Provider 1([facility] )[phone] Sam DO, Dr. Valentine Referring Provider 1([facility])[phone] Roof PAPER PRODUCTS MACHINE OPERATOR-C, Eliezer Burr Attending Provider 1([facility])[phone] Roof PAPER PRODUCTS MACHINE OPERATOR-C, Eliezer Burr Referring Provider 1([facility])[phone] Jose G MOISE, Dr. Hedrick Attending Provider 1([facility])[phone] Sam DO, Dr. Valentine Primary Care Provider 1([facility] )[phone] Sam DO, Dr. Valentine Attending Provider 1([facility])[phone] Sam DO, Dr. Valentine Referring Provider 1([facility])[phone] Sam, Robel Referring Unavailable Sam, Robel Primary Care Unavailable Roof PAPER PRODUCTS MACHINE OPERATOR, Eliezer Burr Consulting Unavailable Sam, Robel Attending Unavailable Sam, Robel Primary Care Unavailable Ryley Araiza Attending Unavailable Sam, Robel Primary Care Unavailable Sam, Robel Attending Unavailable Sam, Robel Referring Unavailable Sam, Robel Primary Care Unavailable Roof PAPER PRODUCTS MACHINE OPERATOR, Eliezer Burr Attending Unavailable Roof PAPER PRODUCTS MACHINE OPERATOR, Eliezer Burr Referring Unavailable Sam, Robel Primary Care Unavailable Sam, Robel Attending Unavailable Sam, Robel Referring Unavailable Roof PAPER PRODUCTS MACHINE OPERATOR, Eliezer Burr Attending Unavailable Sam, Robel Primary Care Unavailable Medications Current Medications Medication Drug Class(es) Dates Sig (Normalized) Sig (Original) aspirin 81 mg chewable tablet (4 sources) Platelet Aggregation Inhibitor, Nonsteroidal Anti-inflammatory Drug [...] -250 mg tablet (2 sources) Start: 11-12-2020 Calcium Carb,Gluc-Mag Gluc,Ox (Calcium Magnesium) 500 mg calcium -250 mg tablet Active 1 {tbl} PO DAILY November 12, 2020 12:00am cholecalciferol 0.025 mg oral capsule (4 sources) Vitamin D Start: 03-27-2020 take 1 capsule by mouth once daily Cholecalciferol (Vitamin D3) 25 mcg (1,000 unit) capsule Active 25 ug PO DAILY March 27, 2020 12:00am Multivitamin (Daily Multi-Vitamin) tablet (4 sources) Start: 03-27-2020 Multivitamin (Daily Multi-Vitamin) tablet Active 1 {tbl} PO DAILY March 27, 2020 12:00am Start: 03-27-2020 take 1 tablet by marcello th once daily Multivitamin (Daily Multi-Vitamin) tablet Active 1 TABLET PO DAILY March 27, 2020 12:00am nitroglycerin 0.4 mg sublingual tablet (11 sources) Nitrate Vasodilator Start: 12-07-2020 End: 06-27-2023 Nitroglycerin 0.4 mg tablet, sublingual Active 0 .ROUTE .COMPLEX 50 3 June 27, 2023 2:51pm 0.4 MG SUBLINGUAL EVERY 5 MINUTES NEEDED FOR CHEST PAIN DO NOT EXCEED 3 DOSES PER EPISODE Start: 11-12-2020 End: 06-27-2023 Nitroglycerin 0.4 mg tablet, sublingual Discontinued 0.4 mg SL Q5M as needed for chest pain 90 0 November 12, 2020 12:00am December 07, 2020 9:21am do not exceed 3 doses per episode Billings-3 Fatty Acids (Fish Oil Concentrate) 1,000 mg capsule (4 sources) Start: 03-27-2020 take 1 capsule by mouth once daily Billings-3 Fatty Acids (Fish Oil Concentrate) 1,000 mg capsule Active 1000 mg PO DAILY March 27, 2020 12:00am Start: 03-27-2020 take 1 capsule by mo [facility] once daily Billings-3 Fatty Acids (Fish Oil Concentrate) 1,000 mg capsule Active 1000 MG PO DAILY March 27, 2020 12:00am Completed/Discontinued Medications Medication Drug Class(es) Dates Sig (Normalized) Sig (Original) atorvastatin 80 mg oral tablet (20 sources) HMG-CoA Reductase Inhibitor Start: 11-16-2017 End: 10-29-2024 take 1 tablet by mouth at bedtime Atorvastatin 80 mg tablet Discontinued 80 mg PO AT BEDTIME 90 February 22, 2022 11:54am January 20, 2023 1:31pm carvedilol 3.125 mg oral tablet (20 sources) alpha-Adrenergic Darian, beta-Adrenergic Darian Start: 11-16-2017 End: 06-17-2024 take 1 tablet by mouth twice daily Carvedilol 3.125 mg tablet Discontinued 3.125 mg PO TWICE A DAY 180 July 11, 2023 2:30pm June 17, 2024 2:01pm clopidogrel 75 mg oral tablet (20 sources) P2Y12 Platelet Inhibitor Start: 01-17-2019 End: 08-05-2024 take 1 tablet by mouth once daily Clopidogrel (Plavix) 75 mg tablet Discontinued 75 mg PO DAILY 90 July 20, 2023 1:36pm August 05, 2024 9:40am Glucosamine Chondroit MSM Tab (4 sources) Start: 11-13-2017 End: 11-16-2017 Glucosamine Chondroit MSM Tab Discontinued November 13, 2017 12:00am November 16, 2017 10:10am arthritis Start: 11-13-2017 End: 11-16-2017 Glucosamine Chondroit MSM Ta b Discontinued November 13, 2017 12:00am November 16, 2017 10:10am lisinopril 10 mg oral tablet (20 sources) Angiotensin Converting Enzyme Inhibitor Start: 11-25-2020 End: 06-17-2024 take 1 tablet by mouth once daily Lisinopril 10 mg tablet Discontinued 10 mg PO DAILY 90 May 08, 2023 2:43pm June 17, 2024 12:25pm Start: 11-16-2017 End: 02-09-2018 take 1 tablet by mouth once daily Lisinopril 2.5 MG tablet Discontinued 2.5 mg PO DAILY 30 3 November 16, 2017 12:00am February 09, 2018 10:00am Multivitamin preparation (4 sources) Start: 11-13-2017 End: 11-16-2017 Multivitamin Discontinued Rodolfo y 2017 12:00am November 16, 2017 10:10am daily nutrition Start: 11-13-2017 End: 11-16-2017 Multivitamin Discontinued Rodolfo y 2017 12:00am November 16, 2017 10:10am ticagrelor 90 mg oral tablet (8 sources) Start: 11-16-2017 End: 01-17-2019 take 1 tablet by mouth twice daily Ticagrelor 90 mg tablet Discontinued 90 mg PO TWICE A DAY 60 March 14, 2018 4:07pm January 17, 2019 3:43pm Vit C-Vit U7-J-Icbi-Elderberry (Airborne Vits Zinc Elderberry) 65 mg-3.15 mcg- 3.35 mg-1 mg tablet,chewable (4 sources) Start: 05-27-2021 End: 10-23-2023 take 1 tablet by mouth once daily Vit C-Vit D2-N-Dwfc-Elderberry (Airborne Vits Zinc Elderberry) 65 mg-3.15 mcg- 3.35 mg-1 mg tablet,chewable Discontinued 1 {tbl} PO DAILY May 27, 2021 1:00am October 23, 2023 9:13am Start: 05-27-2021 take 1 tablet by marcello th once daily Vit C-Vit X3-T-Ulhc-Elderberry (Airborne Vits Zinc Elderberry) 65 mg-3.15 mcg- 3.35 mg-1 mg tablet,chewable Active 1 TABLET PO DAILY May 27, 2021 1:00am Problems Active Problems Problem Classification Problem Date Documented Da te Episodic/Chronic Acute and unspecified renal failure (4 sources) Acute renal failure syndrome; Translations: [Acute kidney failure, unspecified] 12-05-2017 Episodic Acute myocardial infarction (8 sources) Acute myocardial infarction of anterior wall; Translations: [ST elevation (STEMI) myocardial infarction involving other coronary artery of anterior wall] 12-05-2017 Chronic Coronary atherosclerosis and other heart disease (18 sources) Ischemic myocardial dysfunction; Translations: [Ischemic cardiomyopathy] Onset: 08-17-2024 05-31-2022 Chronic Comment on above: PCI-DELMY-Mid Lad w/ 3 .0 x 38 mm Resolute Stent and Wym-BSD-Hfmwcr of the D3 w/ 3.0 x 22 mm Resolute stent 11/13/17 Other lower respiratory disease (4 sources) Dyspnea on exertion; Translations: [Other forms of dyspnea] 03-27-2020 Episodic Other screening for suspected conditions (not mental disorders or infectious disease) (2 sources) Encounter for screening for malignant neoplasm of prostate; Translations: [Encounter for screening for diabetes mellitus] Onset: 02-06-2025 Episodic Past or Other Problems Problem Classification Problem Date Documented Da te Episodic/Chronic Coronary atherosclerosis and other heart disease (5 sources) Stented coronary artery; Translations: [Presence of coronary angioplasty implant and graft] Onset: 10-17-2017 05-31-2022 Episodic Comment on above: PCI-DELMY-Mid Lad w/ 3 .0 x 38 mm Resolute Stent and Zek-WTY-Vdppbe of the D3 w/ 3.0 x 22 mm Resolute stent 11/13/17 Other non-traumatic joint disorders (2 sources) Effusion, right knee; Translations: [Effusion, right knee] Onset: 03-24-2017 Episodic Results Test Name Value Interpretation Reference Range Facility Anion gap in Serum or Plasma Ordered By: Robel Vargas on 02-06-2025 Anion gap [Moles/Vol] 9 mmol/L 10-31 [facility] BUN/creatinine ratioOrdered By: Robel Vargas on 02-06-2025 Urea nitrogen/Creatinine [Mass ratio] 12.5 mg/mg 04-07 [facility] Bilirubin directOrdered By: Robel Vargas on 02-06-2025 Bilirubin.direct [Mass/Vol] 0.27 mg/dL 0.00-0.30 [facility] Bilirubin, Directon 02-07-20 25 Bilirubin.direct [Mass/Vol] 0.27 mg/dL Normal 0.00-0.30 [facility] Comment on above: Order Comment: TUTU E SEND LIVER AND LIPID TO PAPER PRODUCTS MACHINE OPERATOR.ROOF Performed By: #### L 500.0254, L501.4700, L500.4050 #### [facility] [address] [place], [address] Bilirubin, totalOrdered By: Robel Sam on 02-06-2025 Bilirubin [Mass/Vol] 0.68 mg/dL 0.00-1.30 [facility] Calculated very low density lipoprotein (VLDL) cholesterol measurementOrdered By: Robel Sam on 02-06-2025 Calculated very low density lipoprotein (VLDL) cholesterol measurement 15 mg/dL 5-40 [facility] Carbon dioxide, total [Moles /volume] in Central venous bloodOrdered By: Robel Sam on 02-06-2025 CO2 [Moles/Vol] 26.7 mmol/L 21.0-32.0 [facility] Chloride assayOrdered By: Br ett Sam on 02-06-2025 Chloride [Moles/Vol] 106 mmol/L 98-108 [facility] Comprehensive Metabolic Prof ilon 02-06-2025 Albumin [Mass/Vol] 3.9 g/dL Normal 3.4-4.8 [facility] Comment on above: Order Comment: PLEAS E SEND LIVER AND LIPID TO PAPER PRODUCTS MACHINE OPERATOR.ROOF Performed By: #### L 500.4100, L501.4700, L500.4050 #### [facility] [address] [place], [address] Albumin/Globulin [Mass ratio] 1.7 {ratio} Normal 0.9-2.4 [facility] Comment on above: Order Comment: PLEAS E SEND LIVER AND LIPID TO PAPER PRODUCTS MACHINE OPERATOR.ROOF Performed By: #### L 500.4100, L501.4700, [id number] #### [facility] [address] [place], [address] ALK PHOS 78 U/L Normal 40-129 [facility] Comment on above: Order Comment: PLEAS E SEND LIVER AND LIPID TO PAPER PRODUCTS MACHINE OPERATOR.ROOF Performed By: #### L 500.4100, L501.4700, [id number] #### [facility] [address] [place], [address] ALT [Catalytic activity/Vol] 29 U/L Normal <=46 [facility] Comment on above: Order Comment: PLEAS E SEND LIVER AND LIPID TO PAPER PRODUCTS MACHINE OPERATOR.ROOF Performed By: #### L 500.4100, L501.4700, [id number] #### [facility] [address] [place], [address] AST [Catalytic activity/Vol] 25 U/L Normal <=37 [facility] Comment on above: Order Comment: PLEAS E SEND LIVER AND LIPID TO PAPER PRODUCTS MACHINE OPERATOR.ROOF Performed By: #### L 500.4100, L501.4700, [id number] #### [facility] [address] [place], [address] Bilirubin [Mass/Vol] 0.68 mg/dL Normal 0.00-1.30 [facility] Comment on above: Order Comment: PLEAS E SEND LIVER AND LIPID TO PAPER PRODUCTS MACHINE OPERATOR.ROOF Performed By: #### L 500.4100, L501.4700, [id number] #### [facility] [address] [place], [address] BUN/CRE 12.5 RATIO Normal 10-20 [facility] Comment on above: Order Comment: PLEAS E SEND LIVER AND LIPID TO PAPER PRODUCTS MACHINE OPERATOR.ROOF Performed By: #### L 500.4100, L501.4700, [id number] #### [facility] [address] [place], [address] Calcium [Mass/Vol] 9.6 mg/dL Normal 7.6-11.0 [facility] Comment on above: Order Comment: PLEAS E SEND LIVER AND LIPID TO PAPER PRODUCTS MACHINE OPERATOR.ROOF Performed By: #### L 500.4100, L501.4700, [id number] #### [facility] [address] [place], [address] Chloride [Moles/Vol] 106 mmol/L Normal 98-108 [facility] Comment on above: Order Comment: PLEAS E SEND LIVER AND LIPID TO PAPER PRODUCTS MACHINE OPERATOR.ROOF Performed By: #### L 500.4100, L501.4700, [id number] #### [facility] [address] [place], [address] CO2 [Moles/Vol] 26.7 mmol/L Normal 21.0-32.0 [facility] Comment on above: Order Comment: PLEAS E SEND LIVER AND LIPID TO PAPER PRODUCTS MACHINE OPERATOR.ROOF Performed By: #### L 500.4100, L501.4700, [id number] #### [facility] [address] [place], [address] Creatinine [Mass/Vol] 1.09 mg/dL Normal 0.70-1.20 [facility] Comment on above: Order Comment: PLEAS E SEND LIVER AND LIPID TO PAPER PRODUCTS MACHINE OPERATOR.ROOF Performed By: #### L 500.4100, L501.4700, [id number] #### [facility] [address] [place], [address] GAP 9 Normal 5-15 [facility] Comment on above: Order Comment: PLEAS E SEND LIVER AND LIPID TO PAPER PRODUCTS MACHINE OPERATOR.ROOF Performed By: #### L 500.4100, L501.4700, [id number] #### [facility] [address] [place], [address] GFR/1.73 sq M.predicted among non-blacks MDRD (S/P/Bld) [Vol rate/Area] 71 mL/min/{1.73_m2} Normal >60 [facility] Comment on above: Order Comment: PLEAS E SEND LIVER AND LIPID TO PAPER PRODUCTS MACHINE OPERATOR.ROOF Result Comment: mL/m in/1.73m2 CKD-EPI Creatinine Equation (2020) Performed By: #### L 500.4100, L501.4700, [id number] #### [facility] [address] [place], [address] Globulin (S) [Mass/Vol] 2.3 g/dL Normal 2.2-4.2 [facility] Comment on above: Order Comment: PLEAS E SEND LIVER AND LIPID TO PAPER PRODUCTS MACHINE OPERATOR.ROOF Performed By: #### L 500.4100, L501.4700, [id number] #### [facility] [address] [place], [address] Glucose [Mass/Vol] 95 mg/dL Normal 70-99 [facility] Comment on above: Order Comment: PLEAS E SEND LIVER AND LIPID TO PAPER PRODUCTS MACHINE OPERATOR.ROOF Performed By: #### L 500.4100, L501.4700, [id number] #### [facility] [address] [place], [address] Potassium [Moles/Vol] 4.9 mmol/L Normal 3.3-5.1 [facility] Comment on above: Order Comment: PLEAS E SEND LIVER AND LIPID TO PAPER PRODUCTS MACHINE OPERATOR.ROOF Performed By: #### L 500.4100, L501.4700, [id number] #### [facility] [address] [place], [address] Sodium [Moles/Vol] 141 mmol/L Normal 133-145 [facility] Comment on above: Order Comment: PLEAS E SEND LIVER AND LIPID TO PAPER PRODUCTS MACHINE OPERATOR.ROOF Performed By: #### L 500.4100, L501.4700, [id number] #### [facility] [address] [place], [address] T PROT 6.3 g/dL Normal 5.9-8.4 [facility] Comment on above: Order Comment: PLEAS E SEND LIVER AND LIPID TO PAPER PRODUCTS MACHINE OPERATOR.ROOF Performed By: #### L 500.4100, L501.4700, [id number] #### [facility] [address] [place], [address] Urea nitrogen [Mass/Vol] 14 mg/dL Normal 4-19 [facility] Comment on above: Order Comment: PLEAS E SEND LIVER AND LIPID TO PAPER PRODUCTS MACHINE OPERATOR.ROOF Performed By: #### L 500.4100, L501.4700, [id number] #### [facility] [address] [place], [address] Glomerular filtration rate ( GFR) estimation/1.73 sq m using serum, plasma, or whole bOrdered By: Robel Vargas on 02-06-2025 GFR/1.73 sq M.predicted among non-blacks MDRD (S/P/Bld) [Vol rate/Area] 71 mL/min/{1.73_m2} >60 [facility] Comment on above: mL/min/1.73m2 CKD-EP I Creatinine Equation (2020) LDL calc ser/plasOrdered By: Robel Vargas on 02-06-2025 Cholesterol in LDL [Mass/Vol] 64 mg/dL [facility] Comment on above: Lxydocyolp=591-734 m g/dL & Higher Udme=738 mg/dL or greaterFriedwald Equation for LDL-C Laboratory - Chemistry and C hemistry - challengeOrdered By: Robel Vargas on 02-06-2025 AST [Catalytic activity/Vol] 25 U/L <38 [facility] Lipid Profileon 02-06-2025 CHOL:HDL 3.04 Normal [facility] Comment on above: Order Comment: TUTU E SEND LIVER AND LIPID TO PAPER PRODUCTS MACHINE OPERATOR.ROOF Performed By: #### L 500.4100, L501.4700, L500.4050 #### [facility] [address] [place] [place], [address] Cholesterol [Mass/Vol] 118 mg/dL Normal <=200 [facility] Comment on above: Order Comment: PLEAS E SEND LIVER AND LIPID TO PAPER PRODUCTS MACHINE OPERATOR.ROOF Result Comment: Chol esterol level, Desirable <200 mg/dL Borderline high cholesterol 200-239 mg/dL High cholesterol >=240 mg/dL Recommendations of the NCEP Adult Treatment Panel for the following risk-cutoff thresholds for the [place] population. Performed By: #### L 500.4100, L501.4700, L500.4050 #### [facility] [address] [place], [address] Cholesterol in HDL [Mass/Vol] 39 mg/dL Low [facility] Comment on above: Order Comment: PLEAS E SEND LIVER AND LIPID TO PAPER PRODUCTS MACHINE OPERATOR.ROOF Result Comment: Vi onal Cholesterol Education Program (NCEP) guidelines: <40 mg/dL: Low HDL-cholesterol (major risk factor for CHD) >= 60 mg/dL: High HDL-cholesterol (negative risk factor for CHD) HDL-cholesterol is affected by a number of factors, e.g. smoking, exercise, hormones, sex and age. Performed By: #### L 500.4100, L501.4700, L500.4050 #### [facility] [address] [place], [place], [id number] (069) Cholesterol in LDL [Mass/Vol] 64 mg/dL Normal [facility] Comment on above: Order Comment: PLEAS E SEND LIVER AND LIPID TO PAPER PRODUCTS MACHINE OPERATOR.ROOF Result Comment: Bord mnflzz=220-878 mg/dL Higher Lmpn=534 mg/dL or greater Friedwald Equation for LDL-C Performed By: #### L 500.4100, L501.4700, L500.4050 #### [facility] [address] [place], [address] Cholesterol in VLDL [Mass/Vol] 15 mg/dL Normal 5-40 [facility] Comment on above: Order Comment: PLEAS E SEND LIVER AND LIPID TO PAPER PRODUCTS MACHINE OPERATOR.ROOF Performed By: #### L 500.4100, L501.4700, L500.4050 #### [facility] [address] [place], [address] Triglyceride [Mass/Vol] 74 mg/dL Normal [facility] Comment on above: Order Comment: PLEAS E SEND LIVER AND LIPID TO PAPER PRODUCTS MACHINE OPERATOR.ROOF Result Comment: The drugs N-Acetylcysteine and Metamizole may falsely depress this assay. Normal range: <150 mg/dL Borderline High: 150-199 mg/dL High: 200-499 mg/dL Very High: >500 mg/dL Performed By: #### L 500.4100, L501.4700, L500.4050 #### [facility] [address] [place], [address] CHOL Normal <=200 [facility] Comment on above: Result Comment: DUPL ICATE ORDERS Performed By: #### L 500.4100, L500.3400 #### [facility] [address] [place], [address] CHOL:HDL Normal [facility] Comment on above: Result Comment: DUPL ICATE ORDERS Performed By: #### L 500.4100, L500.3400 #### [facility] [address] [place], [address] CLDL Normal [facility] Comment on above: Result Comment: DUPL ICATE ORDERS Performed By: #### L 500.4100, L500.3400 #### [facility] [address] [place], [address] HDL Normal [facility] Comment on above: Result Comment: DUPL ICATE ORDERS Performed By: #### L 500.4100, L500.3400 #### [facility] [address] [place], [address] TRIG Normal [facility] Comment on above: Result Comment: DUPL ICATE ORDERS Performed By: #### L 500.4100, L500.3400 #### [facility] [address] [place], [address] VLDL Normal 5-40 [facility] Comment on above: Result Comment: DUPL ICATE ORDERS Performed By: #### L 500.4100, L500.3400 #### [facility] [address] [place], [address] Liver Profileon 02-06-2025 ALB Normal 3.4-4.8 [facility] Comment on above: Result Comment: DUPL ICATE ORDERS Performed By: #### L 500.4100, L500.3400 #### [facility] [address] [place], [address] ALK PHOS Normal 40-129 [facility] Comment on above: Result Comment: DUPL ICATE ORDERS Performed By: #### L 500.4100, L500.3400 #### [facility] [address] [place], [address] ALT Normal <=46 [facility] Comment on above: Result Comment: DUPL ICATE ORDERS Performed By: #### L 500.4100, L500.3400 #### [facility] [address] [place], [address] AST Normal <=37 [facility] Comment on above: Result Comment: DUPL ICATE ORDERS Performed By: #### L 500.4100, L500.3400 #### [facility] [address] [place], [address] D BILI Normal 0.00-0.30 [facility] Comment on above: Result Comment: DUPL ICATE ORDERS Performed By: #### L 500.4100, L500.3400 #### [facility] [address] [place], [address] T BILI Normal 0.00-1.30 [facility] Comment on above: Result Comment: DUPL ICATE ORDERS Performed By: #### L 500.4100, L500.3400 #### [facility] [address] [place], [address] T PROT Normal 5.9-8.4 [facility] Comment on above: Result Comment: DUPL ICATE ORDERS Performed By: #### L 500.4100, L500.3400 #### [facility] [address] [place], [address] Potassium measurement (mass/ volume)Ordered By: Robel Vargas on 02-06-2025 Potassium (Unsp spec) [Mass/Vol] 4.9 mmol/L 3.3-5.1 [facility] Screening total cholesterol/ high density lipoprotein (HDL) cholesterol ratioOrdered By: Robel Vargas on 02-06-2025 Cholesterol.total/Chol esterol in HDL [Mass ratio] 3.04 {ratio} [facility] Serum creatinine measurement (mass/volume)Ordered By: Robel Vargas on 02-06-2025 Creatinine [Mass/Vol] 1.09 mg/dL 0.70-1.20 [facility] Serum globulin measurementOr dered By: Robel Vargas on 02-06-2025 Globulin (S) [Mass/Vol] 2.3 g/dL 2.2-4.2 [facility] Serum glucose measurement (m ass/volume)Ordered By: Robel Vargas on 02-06-2025 Glucose [Mass/Vol] 95 mg/dL 70-99 [facility] Serum or plasma alanine bowman otransferase (ALT) measurementOrdered By: Robel Vargas on 02-06-2025 ALT [Catalytic activity/Vol] 29 U/L <47 [facility] Serum or plasma albumin brittney urement (mass/volume)Ordered By: Robel Vargas on 02-06-2025 Albumin [Mass/Vol] 3.9 g/dL 3.4-4.8 [facility] Serum or plasma albumin/glob ulin mass ratioOrdered By: Robel Vargas on 02-06-2025 Albumin/Globulin [Mass ratio] 1.7 {ratio} 0.9-2.4 [facility] Serum or plasma alkaline radha sphatase measurementOrdered By: Robel Vargas on 02-06-2025 ALP [Catalytic activity/Vol] 78 U/L 40-129 [facility] Serum or plasma calcium brittney urement (mass/volume)Ordered By: Robel Vargas on 02-06-2025 Calcium [Mass/Vol] 9.6 mg/dL 7.6-11.0 [facility] Serum or plasma cholesterol in HDL measurement (mass/volume)Ordered By: Robel Vargas on 02-06-2025 Cholesterol in HDL [Mass/Vol] 39 mg/dL Low >40 [facility] Comment on above: National Cholesterol Education Program (NCEP) guidelines:<40 mg/dL: Low HDL-cholesterol (major risk factor for CHD)>= 60 mg/dL: High HDL-cholesterol (negative risk factor for CHD)HDL-cholesterol is affected by a number of factors, e.g. smoking, exercise, hormones, sex and age. Serum or plasma cholesterol measurement (mass/volume)Ordered By: Robel Vargas on 02-06-2025 Cholesterol [Mass/Vol] 118 mg/dL <201 [facility] Comment on above: Cholesterol level, D esirable <200 mg/dLBorderline high cholesterol 200-239 mg/dLHigh cholesterol >=240 mg/dLRecommendations of the NCEP Adult Treatment Panel for the following risk-cutoff thresholds for the [place] population. Serum or plasma urea nitroge n measurement (mass/volume)Ordered By: Robel Vargas on 02-06-2025 Urea nitrogen [Mass/Vol] 14 mg/dL 4-19 [facility] Sodium levelOrdered By: Carlos Vargas on 02-06-2025 Sodium [Moles/Vol] 141 mmol/L 133-145 [facility] Total proteinOrdered By: Cecy Vargas on 02-06-2025 Protein [Mass/Vol] 6.3 g/dL 5.9-8.4 [facility] Triglycerides measurementOrd ered By: Robel Vargas on 02-06-2025 Triglyceride [Mass/Vol] 74 mg/dL <199 [facility] Health Comment on above: The drugs N-Acetylcy steine and Metamizole may falsely depress this assay. Normal range: <150 mg/dLBorderline High: 150-199 mg/dLHigh: 200-499 mg/dLVery High: >500 mg/dL Cardiovascular stress test r eportOrdered By: Ryley Arazia on 09-24-2024 Study report [facility] Cardiovascular Services [address] [place] [address] MR#: [id number] Acct: [id number] Name: HI MCCAIN Rep #: [id number] : 1950 74 From: Ryley Araiza MD Primary Care: Dr. Robel Vargas, DO Status : REG CLI Referring Dr: Eliezer Hardin NP PAPER PRODUCTS MACHINE OPERATOR-C Sex: M C Stress Test Report Exercise [...] 1631 Date _ Ryley Araiza MD CC: CAMILO Hardin; Dr. Robel Vargas, DO ~ Date Dictated: 09/24/241627 Date Transcribed: 09/24/241627 Fac Engineer: CO Signed [facility] Work Phone: Echo Complete W/ Contraston 09-24-2024 Echo Complete W/ Contrast [facility] Cardiovascular Services [address] [place] [address] Echo Complete W/ Contrast 09/24/24 0907 MR#: [id number] Acct: [id number] Name: HI MCCAIN Rep #: [id number] : 1950 74 From: Ryley Araiza MD Attending Dr: JESSICA BeasleyC Status: REG CLI Ordering Dr: Eliezer Hardin PAPER PRODUCTS MACHINE OPERATOR PAPER PRODUCTS MACHINE OPERATOR-C Date: 09/24/24 Location: [facility] Sex: M C Admitted: Reason For Study Reason For Study: Evaluate EF Procedure This was a 2D Doppler, Color Flow transthoracic echocardiogram. The study was technically difficult. Contrast injection was performed. Exam performed in department. Left Ventricle Normal LV size. Stage 1 diastolic dysfunction. The left ventricular ejection fraction is 50 %. There are regional wall motion abnormalities as specified. [place] : Akinetic. Septal [place] : Akinetic. Anterior [place] : Hypokinetic. The rest of the wall [...] 09/24/24 1413 Date Ryley Araiza MD CC: PAPER PRODUCTS MACHINE OPERATOR-C Eliezer Hardin; Dr. Robel Vargas, Date Dictated: 09/24/24906 Date Transcribed: 09/24/241412 Fac Engineer: Signed Normal [facility] Echocardiogram study reportO rdered By: Ryley Araiza on 09-24-2024 Study report [facility] Cardiovascular Services [address] [facility] [place] [address] Echo Complete W/ Contrast 09/24/24906 MR#: [id number] Acct: [id number] Name: HI MCCAIN Rep #:[id number] : 1950 74 From: Ryley Fisher Attending Dr: CAMILO Beasley Sta tus: REG CLI Ordering Dr: Eliezer Hardin NP Date: 09/24/24 Location: [facility] Sex: M C Admitted: Reason For Study Reason For Study: Evaluate EF Procedure This was a 2D Doppler, Color Flow transthoracic echocardiogram. The study was technically difficult. Contrast injection was performed. Exam performed in department. Left Ventricle Normal LV size. Stage 1 diastolic dysfunction. The left ventricular ejection fraction is 50 %. There are regional wall motion abnormalities as specified. [place] : Akinetic. Septal [place] : Akinetic. Anterior [place] : Hypokinetic. The rest of the wall [...] 1413 Date _ Ryley Araiza MD CC: PAPER PRODUCTS MACHINE OPERATORJake Hardin; DO Chandler Guerrero Date Dictated: 09/24/24 0907 Date Transcribed: 09/24/24 141 Fac Engineer: Signed [facility] Work Phone: Stress Reporton 09-24-2024 Stress Report [facility] Cardiovascular Services [address] [place] [id number] MR#: [id number] Acct: [id number] Name: HI MCCAIN Rep #: [id number] : 1950 74 From: Ryley Araiza MD Primary Care: Dr. Robel Vargas, Status: REG CLI Referring Dr: Eliezer Hardin NP Sex: M C Stress Test Report Exercise [...] 09/24/24 1631 Date Ryley Araiza MD CC: PAPER PRODUCTS MACHINE OPERATOR-Ty Hardin; Dr. Robel Vargas, DO Date Dictated: 09/24/24 1628 Date Transcribed: 09/24/241627 Fac Engineer: NOEMI Signed Normal [facility] Cardiology Visit Reporton Cardiology Visit Report [facility] [address] [place] [address] OFFICE VISIT Date of Service: 08/16/24 MR#: [id number] Acct: [id number] Name: HI MCCAIN Rep #: [id number] : 1950 Provider: CAMILO rudd Age/Sex: 74/M Location: [facility] Status: Signed HPI HPI History of Present [...] Monitor Intake Visit Reasons: 18 m fu Anodizer Required: No Accompanied by: Significant Other Is [...] No PFSH Medical History Acute anterior wall IA Atherosclerosis of coronary artery of [place] heart without angina pectoris Ischemic cardiomyopathy Presence [...] Nose: external (more content not included)... Normal [facility] Basic Metabolic Profile (BMP )on 05-09-2024 BUN/CRE 20.4 RATIO High 10-20 [facility] Comment on above: Order Comment: DR.OF HOGUE ORDERED LIVER,LIPID DR VARGAS ORDERED BMP, PSA Performed By: #### L 500.3400, L501.9910, L500.4100, L500.2500 #### [facility] [address] [place], [address] CA,Total 9.3 mg/dL Normal 8.5-10.1 [facility] Comment on above: Order Comment: DR.OF HOGUE ORDERED LIVER,LIPID DR VARGAS ORDERED BMP, PSA Performed By: #### L 500.3400, L501.9910, L500.4100, L500.2500 #### [facility] [address] [place], [address] Chloride [Moles/Vol] 109 mmol/L High 98-107 [facility] Comment on above: Order Comment: DR.OF HOGUE ORDERED LIVER,LIPID DR VARGAS ORDERED BMP, PSA Performed By: #### L 500.3400, L501.9910, L500.4100, L500.2500 #### [facility] [address] [place], [address] CO2 [Moles/Vol] 27.0 mmol/L Normal 21.0-32.0 [facility] Comment on above: Order Comment: DR.OF HOGUE ORDERED LIVER,LIPID DR VARGAS ORDERED BMP, PSA Performed By: #### L 500.3400, L501.9910, L500.4100, L500.2500 #### [facility] [address] [place], [address] Creatinine [Mass/Vol] 1.08 mg/dL Normal 0.70-1.30 [facility] Comment on above: Order Comment: DR.OF HOGUE ORDERED LIVER,LIPID DR VARGAS ORDERED BMP, PSA Result Comment: The validity of the calculated GFR GFRAA in patients over 70 years has not been determined. Clinical correlation is essential. Performed By: #### L 500.3400, L501.9910, L500.4100, L500.2500 #### [facility] [address] [place], [address] EST GFR - AA 86 mL/min Normal >60 [facility] Comment on above: Order Comment: DR.OF HOGUE ORDERED LIVER,LIPID DR VARGAS ORDERED BMP, PSA Result Comment: Afri can Estonian GFR Calc Performed By: #### L 500.3400, L501.9910, L500.4100, L500.2500 #### [facility] [address] [place], [address] GAP 4 Low 5-15 [facility] Comment on above: Order Comment: DR.OF HOGUE ORDERED LIVER,LIPID DR VARGAS ORDERED BMP, PSA Performed By: #### L 500.3400, L501.9910, L500.4100, L500.2500 #### [facility] [address] [place], [address] GFR/1.73 sq M.predicted among non-blacks MDRD (S/P/Bld) [Vol rate/Area] 71 mL/min/{1.73_m2} Normal >60 [facility] Comment on above: Order Comment: DR.OF HOGUE ORDERED LIVER,LIPID DR VARGAS ORDERED BMP, PSA Result Comment: Non- GFR Calc Performed By: #### L 500.3400, L501.9910, L500.4100, L500.2500 #### [facility] [address] [place], [address] Glucose [Mass/Vol] 103 mg/dL Normal 74-106 [facility] Comment on above: Order Comment: DR.OF HOGUE ORDERED LIVER,LIPID DR VARGAS ORDERED BMP, PSA Result Comment: Fast ing Glucose result from 100 to 125 mg/dL suggests IMPAIRED HOMEOSTASIS per A.D.A. criteria. Performed By: #### L 500.3400, L501.9910, L500.4100, L500.2500 #### [facility] [address] [place], [address] Potassium [Moles/Vol] 4.3 mmol/L Normal 3.5-5.1 [facility] Comment on above: Order Comment: DR.OF HOGUE ORDERED LIVER,LIPID DR VARGAS ORDERED BMP, PSA Performed By: #### L 500.3400, L501.9910, L500.4100, L500.2500 #### [facility] [address] [place], [address] Sodium [Moles/Vol] 140 mmol/L Normal 136-145 [facility] Comment on above: Order Comment: DR.OF HOGUE ORDERED LIVER,LIPID DR VARGAS ORDERED BMP, PSA Performed By: #### L 500.3400, L501.9910, L500.4100, L500.2500 #### [facility] [address] [place], [address] Urea nitrogen [Mass/Vol] 22 mg/dL High 7-18 [facility] Comment on above: Order Comment: DR.OF HOGUE ORDERED LIVER,LIPID DR SAM ORDERED BMP, PSA Performed By: #### L 500.3400, L501.9910, L500.4100, L500.2500 #### [facility] [address] [place], [address] Lipid Profileon 05-09-2024 Cholesterol [Mass/Vol] 101 mg/dL Normal 200 [facility] Comment on above: Order Comment: [facility] ORDERED LIVER,LIPIDDR SAM ORDERED BMP, PSA Result Comment: <200 mg/dL Desirable 200-240 mg/dL Borderline >240 mg/dL High Risk Performed By: #### L 500.3400, L501.9910, L500.4100, L500.2500 ####[facility] [address] [place], [address] Cholesterol in HDL [Mass/Vol] 39 mg/dL Low [facility] Comment on above: Order Comment: DR.OF HOGUE ORDERED LIVER,LIPIDDR SAM ORDERED BMP, PSA Result Comment: The drugs N-Acetylcysteine and Metamizole may falsely depress this assay. Reference Range HDL <40 mg/dL Low HDL Cholesterol HDL >or= 60 mg/dL High HDL Cholesterol Performed By: #### L 500.3400, L501.9910, L500.4100, L500.2500 ####[facility] [address] [place], [address] Cholesterol in LDL [Mass/Vol] 52 mg/dL Normal 0-130 [facility] Comment on above: Order Comment: [facility] ORDERED LIVER,LIPIDDR SAM ORDERED BMP, PSA Performed By: #### L 500.3400, L501.9910, L500.4100, L500.2500 ####[facility] [address] [place], [address] Cholesterol in VLDL [Mass/Vol] 10 mg/dL Normal 5-40 [facility] Comment on above: Order Comment: [facility] ORDERED LIVER,LIPIDDR SAM ORDERED BMP, PSA Performed By: #### L 500.3400, L501.9910, L500.4100, L500.2500 ####[facility] [address] [place], [address] Triglyceride [Mass/Vol] 50 mg/dL Normal [facility] Comment on above: Order Comment: DR.OF HOGUE ORDERED LIVER,LIPIDDR VARGAS ORDERED BMP, PSA Result Comment: The drugs N-Acetylcysteine and Metamizole may falsely depress this assay. Serum Triglycerides Reference Interval Normal <150 mg/dL Borderline high 150 - 199 mg/dL High 200 - 499 mg/dL Very High > or = 500 mg/dL Performed By: #### L 500.3400, L501.9910, L500.4100, L500.2500 ####[facility] [address] [place], [address] Liver Profileon 05-09-2024 Albumin [Mass/Vol] 3.7 g/dL Normal 3.2-5.0 [facility] Comment on above: Order Comment: DR.OF HOGUE ORDERED LIVER,LIPID DR VARGAS ORDERED BMP, PSA Performed By: #### L 500.3400, L501.9910, L500.4100, L500.2500 #### [facility] [address] [place], [address] ALK P 78 U/L Normal 45-117 [facility] Comment on above: Order Comment: DR.OF HOGUE ORDERED LIVER,LIPID DR VARGAS ORDERED BMP, PSA Performed By: #### L 500.3400, L501.9910, L500.4100, L500.2500 #### [facility] [address] [place], [address] ALT [Catalytic activity/Vol] 36 U/L Normal 16-61 [facility] Comment on above: Order Comment: DR.OF HOGUE ORDERED LIVER,LIPID DR VARGAS ORDERED BMP, PSA Performed By: #### L 500.3400, L501.9910, L500.4100, L500.2500 #### [facility] [address] [place], [address] AST [Catalytic activity/Vol] 28 U/L Normal 15-37 [facility] Comment on above: Order Comment: DR.OF HOGUE ORDERED LIVER,LIPID DR VARGAS ORDERED BMP, PSA Performed By: #### L 500.3400, L501.9910, L500.4100, L500.2500 #### [facility] [address] [place], [address] Bilirubin [Mass/Vol] 0.80 mg/dL Normal 0.20-1.00 [facility] Comment on above: Order Comment: DR.OF HOGUE ORDERED LIVER,LIPID DR VARGAS ORDERED BMP, PSA Result Comment: For patients on eltrombopag therapy, use of Dimension [place] TBIL is not recommended. Performed By: #### L 500.3400, L501.9910, L500.4100, L500.2500 #### [facility] [address] [place], [address] Bilirubin.direct [Mass/Vol] 0.24 mg/dL Normal 0.00-0.30 [facility] Comment on above: Order Comment: DR.OF HOGUE ORDERED LIVER,LIPID DR VARGAS ORDERED BMP, PSA Performed By: #### L 500.3400, L501.9910, L500.4100, L500.2500 #### [facility] [address] [place], [address] Globulin (S) [Mass/Vol] 2.9 g/dL Normal 2.2-4.2 [facility] Comment on above: Order Comment: DR.OF HOGUE ORDERED LIVER,LIPID DR VARGAS ORDERED BMP, PSA Performed By: #### L 500.3400, L501.9910, L500.4100, L500.2500 #### [facility] [address] [place], [address] T PROT 6.6 g/dL Normal 6.4-8.2 [facility] Comment on above: Order Comment: DR.OF HOGUE ORDERED LIVER,LIPID DR VARGAS ORDERED BMP, PSA Performed By: #### L 500.3400, L501.9910, L500.4100, L500.2500 #### [facility] [address] [place], [place], [id number] PSA,Total - Annual Screenon 05-09-2024 PSA,TOT SCREEN 0.10 ng/mL Normal 0.00-4.00 [facility] Comment on above: Order Comment: DR.OF HOGUE ORDERED LIVER,LIPIDDR VARGAS ORDERED BMP, PSA Result Comment: This test was performed using the TPSA assay method for the [employer] chemistry system. Values obtained with different assay methods cannot be used interchangably. When changing PSA assays in the course of monitoring a patient, additional sequential testing should be carried out to confirm baseline values. Performed By: #### L 500.3400, L501.9910, L500.4100, L500.2500 ####[facility] [address] [place], [place], [id number] Basophil percentageOrdered B y: Eliezer Hardin on 10-12-2023 Bilirubin [Mass/Vol] 0.60 mg/dL 0.20-1.00 [facility] Comment on above: For patients on eltr ombopag therapy, use of Dimension [place] TBIL is not recommended. Cholesterol [Mass/Vol] 116 mg/dL <200 [facility] Comment on above: <200 mg/dL Desirable 200-240 mg/dL Borderline >240 mg/dL High Risk Protein [Mass/Vol] 6.5 g/dL 6.4-8.2 [facility] Triglyceride [Mass/Vol] 59 mg/dL <199 [facility] Comment on above: The drugs N-Acetylcy steine and Metamizole may falsely depress this assay.Serum Triglycerides Reference Interval Normal <150 mg/dL Borderline high 150 - 199 mg/dL High 200 - 499 mg/dL Very High > or = 500 mg/dL Direct bilirubinOrdered By: Eliezer Hardin on 10-12-2023 Bilirubin.direct [Mass/Vol] 0.19 mg/dL 0.00-0.30 [facility] - Chemistry and C hemistry - challengeOrdered By: Eliezer Hardin on 10-12-2023 ALP [Catalytic activity/Vol] 77 U/L 45-117 [facility] ALT [Catalytic activity/Vol] 42 U/L 16-61 [facility] Cholesterol in HDL [Mass/Vol] 41 mg/dL >40 [facility] Comment on above: The drugs N-Acetylcy steine and Metamizole may falsely depress this assay. Reference Range HDL <40 mg/dL Low HDL Cholesterol HDL >or= 60 mg/dL High HDL Cholesterol Cholesterol in LDL [Mass/Vol] 63 mg/dL 0-130 [facility] Globulin (S) [Mass/Vol] 3.0 g/dL 2.2-4.2 [facility] No Panel InformationOrdered By: Eliezer Hardin on 10-12-2023 VLDL Cholesterol 12 mg/dL 5-40 [facility] Thin prep Papanicolaou smear with manual screeningOrdered By: Eliezer Hardin on 10-12-2023 Thin prep Papanicolaou smear with manual screening 3.5 g/dL 3.2-5.0 [facility] Thin prep Papanicolaou smear with manual screening 32 U/L 15-37 [facility] Basophil percentageOrdered B y: Eliezer Hardin on 02-03-2023 Bilirubin [Mass/Vol] 0.50 mg/dL 0.20-1.00 [facility] Comment on above: For patients on eltr ombopag therapy, use of Dimension [place] TBIL is not recommended. Cholesterol [Mass/Vol] 122 mg/dL <200 [facility] Comment on above: <200 mg/dL Desirable 200-240 mg/dL Borderline >240 mg/dL High Risk Protein [Mass/Vol] 6.3 g/dL 6.4-8.2 [facility] Triglyceride [Mass/Vol] 61 mg/dL <199 [facility] Comment on above: The drugs N-Acetylcy steine and Metamizole may falsely depress this assay.Serum Triglycerides Reference Interval Normal <150 mg/dL Borderline high 150 - 199 mg/dL High 200 - 499 mg/dL Very High > or = 500 mg/dL Direct bilirubinOrdered By: Eliezer Hardin on 02-03-2023 Bilirubin.direct [Mass/Vol] 0.12 mg/dL 0.00-0.30 [facility] - Chemistry and C hemistry - challengeOrdered By: Eliezer Hardin on 02-03-2023 ALP [Catalytic activity/Vol] 74 U/L 45-117 [facility] ALT [Catalytic activity/Vol] 39 U/L 16-61 [facility] Globulin (S) [Mass/Vol] 3.0 g/dL 2.2-4.2 [facility] Serum or plasma albumin brittney urement (mass/volume)Ordered By: Eliezer Hardin on 02-03-2023 Albumin [Mass/Vol] 3.3 g/dL 3.2-5.0 [facility] Serum or plasma cholesterol in HDL measurement (mass/volume)Ordered By: Eliezer Hardin on 02-03-2023 Cholesterol in HDL [Mass/Vol] 42 mg/dL >40 [facility] Comment on above: The drugs N-Acetylcy steine and Metamizole may falsely depress this assay. Reference Range HDL <40 mg/dL Low HDL Cholesterol HDL >or= 60 mg/dL High HDL Cholesterol Serum or plasma cholesterol in VLDL measurement (mass/volume)Ordered By: Eliezer Hardin on 02-03-2023 Cholesterol in VLDL [Mass/Vol] 12 mg/dL 5-40 [facility] Serum or plasma low density lipoprotein (LDL) cholesterol measurement (mass/volume)Ordered By: Eliezer Hardin on 02-03-2023 Cholesterol in LDL [Mass/Vol] 68 mg/dL 0-130 [facility] Thin prep Papanicolaou smear with manual screeningOrdered By: Eliezer Hardin on 02-03-2023 Thin prep Papanicolaou smear with manual screening 25 U/L 15-37 [facility] CBFon 03-30-2017 CBF . MICRO - MicrobiologyPROCEDURE: [...] seen.Performing Locations*1: This test was performed at: [facility], [address] [place] [address], [address] [place] [address] ([place]) Comment on above: Performed By: #### C BF ####[place] [address] .CRYBF Path Reviewon 017 CRYPF Path Review Negative [facility] ([place]) Comment on above: Result Comment: Elec tronically signed by: JOEY HOLLAND MD03.27.2017 15:25 EDT Performed By: #### S YNCT ####[place] [address]#### CRYBF, CRYBFPR ####[place] [address] CRYBFon 03-27-2017 Crystal BF Sp Synovial fluid [facility] ([place]) Comment on above: Order Comment: synov ial fluid Performed By: #### S YNCT ####[place] [address]#### CRYBF, CRYBFPR ####[place] [address] SYNCTon 03-24-2017 Cells Counted (synovial) 100 Normal [facility] ([place]) Comment on above: Performed By: #### S YNCT ####[place] [address]#### CRYBF, CRYBFPR ####[place] [address] Lymphocytes/100 leukocytes 93 % Normal [facility] ([place]) Comment on above: Performed By: #### S YNCT ####[place] [address]#### CRYBF, CRYBFPR ####[facility] [place] [address] Mononuclear Cell % (synovial) 4 % Normal [facility] ([place]) Comment on above: Performed By: #### S YNCT ####[address] [address]#### CRYBF, CRYBFPR ####[address] [address] Neutrophils/100 WBC Auto (Bld) 3 % Normal 0-24 [facility] ([place]) Comment on above: Performed By: #### S YNCT ####[address] [address]#### CRYBF, CRYBFPR ####[address] [address] Urine, clarity Clear Normal [facility] ([place]) Comment on above: Performed By: #### S YNCT ####[place] [address]#### CRYBF, CRYBFPR ####[address] [address] Urine, color Straw Normal [facility] ([place]) Comment on above: Performed By: #### S YNCT ####[place] [id number]#### CRYBF, CRYBFPR ####[address] [address] White Blood Cells (synovial) 700 /mm3 High 0-199 [facility] ([place]) Comment on above: Performed By: #### S YNCT ####[place] [id number]#### CRYBF, CRYBFPR ####[address] [address] XR KNEE 4 VIEWS RIGHTon 10-0 XR [...] AM Sign Date: 03/24/2017 10:29:13 AM Normal [facility] ([place]) Vital Signs Date Time Vital Sign Value Performing Clinician Faci lity 08-16-2024 15:57-0500 Body height 180.[address] Robel Vargas DO Work Phone: [facility] 08-16-2024 15:57-0500 Body mass index (BMI) [Ratio] 27.8 kg/m2 Dr. Robel Vargas DO Work Phone: [facility] 08-16-2024 15:57-0500 Body weight 90.[address] Robel Vargas DO Work Phone: [facility] 08-16-2024 15:57-0500 Diastolic blood pressure 76 mm[Hg] Dr. Robel Vargas DO Work Phone: [facility] 08-16-2024 15:57-0500 Heart rate 64 /min Dr. Robel Vargas DO Work Phone: [facility] 08-16-2024 15:57-0500 Respiratory rate 16 /min Dr. Robel Vargas DO Work Phone: [facility] 08-16-2024 15:57-0500 Systolic blood pressure 124 mm[Hg] Dr. Rboel Vargas DO Work Phone: [facility] 01-20-2023 13:09-0400 Body height 180.[address] Robel Vargas Work Phone: [facility] 01-20-2023 13:09-0400 Body mass index (BMI) [Ratio] 26.9 kg/m2 Dr. Robel Vargas Work Phone: [facility] 01-20-2023 13:09-0400 Body weight 87.[address] Robel Vargas Work Phone: [facility] 01-20-2023 13:09-0400 Diastolic blood pressure 79 mm[Hg] Dr. Robel Vargas Work Phone: [facility] 01-20-2023 13:09-0400 Heart rate 68 /min Dr. Robel Vargas Work Phone: [facility] 01-20-2023 13:09-0400 Respiratory rate 18 /min Dr. Robel Vargas Work Phone: [facility] 01-20-2023 13:09-0400 SaO2% (BldA) [Mass fraction] 97 % Dr. Robel Vargas Work Phone: [facility] 01-20-2023 13:09-0400 Systolic blood pressure 126 mm[Hg] Dr. Robel Vargas Work Phone: [facility] Encounters Encounter Date Encounter Type Care Provider Facility Start: 05-08-2025 ambulatory Robel Sam Facility:[facility] Start: 02-06-2025 End: 02-06-[address] Robel Vargas DO Work Phone: -Laboratory Start: 02-06-2025 End: 02-06-[address] Robel Vargas DO -Laboratory Work Phone: Start: 02-06-2025 End: 02-06-2025 ambulatory Robel Sam Facility:[facility] Start: 09-24-2024 ambulatory Robel Sma Facility:[facility] Start: 09-24-2024 Non-patient / Non-visit Dr. Hedrick Of vicky [facility] Start: 09-24-2024 End: 09-24-[address] Robel Vargas DO Work Phone: [facility] Work Phone: Start: 09-24-2024 End: 09-24-2024 Patient encounter procedure lEiezer PAGE -[facility] Work Phone: Start: 09-24-2024 End: 09-24-2024 ambulatory Robel Sam Facility:[facility] Start: 08-16-2024 End: 08-16-2024 Patient encounter procedure Eliezer PAGE -[facility] Work Phone: Start: 08-16-2024 End: 08-16-2024 ambulatory Robel Sam [place] [place] Start: 05-09-2024 End: 05-09-2024 ambulatory Robel Sam Facility:[facility] Start: 10-12-2023 End: 10-12-2023 ambulatory [facility] Work Phone: Start: 10-12-2023 End: 10-12-2023 Patient encounter procedure [facility] Work Phone: Start: 02-03-2023 End: 02-03-[address] Robel Vargas Work Phone: [facility] Work Phone: Start: 02-03-2023 End: 02-03-[address] Robel Vargas Work Phone: [facility] Work Phone: Start: 01-20-2023 End: 01-20-[address] Robel Vargas Work Phone: [facility] Work Phone: Start: 03-24-2017 End: 03-29-2017 Ambulatory ROBEL VARGAS Facility:[facility] Start: 03-24-2017 End: 03-25-2017 Ambulatory ROBEL ALori VARGAS Facility:[facility] Procedures Date Procedure Procedure Detail Performing Clinician Start: 09-24-2024 Radionuclide imaging of perfusion of myocardium under exercise stress Dr. Robel Vargas DO Work Phone: Payers Date Payer Category Payer Self-pay [id number] 2023 Unknown [id number] 2017 Unknown [id number] Medicare MEDICARE PART A B [id number] Private Health Insurance [id number] Unknown [employer] [id number] Unknown [facility] [id number] Unknown [id number] 2 Unknown [id number] 2 Unknown [id number] 2 Unknown [id number] 2 Unknown [id number] 2 Unknown [id number] 2 Social History Date Type Detail Facility Start: 01-20-2023 Tobacco smoking status [facility] Unknown if ever smoked [facility] [facility] Start: 11-13-2017 Spouse/ Signif icant Other [facility] Start: 11-16-2017 [facility]smoker [facility] Start: 1950 Sex Assigned At Male W [facility] Start: 10-23-2023 Tobacco smoking status NHIS Never smoked tobacco (finding) [facility] Start: 09-27-2024 Sex Male (finding) [facility] Evaluation note 08-16-2024 Note Date & Type Note Facility 08-16-2024 Evaluation note Diagnosis Onset Date Resolution Atherosclerosis of coronary artery of [place] heart without angina pectoris chronic August 16, 025 3:55pm Ischemic cardiomyopathy chronic F ebruary 2024 3:55pm [facility] Work Phone: Evaluation note Note Date & Type Note Facility Evaluation note Diagnosis Onset Date Atherosclerosis of coronary artery of [place] heart without angina pectoris chronic Ischemic cardiomyopathy 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 [facility] Work Phone: Evaluation note Note Date & Type Note Facility Evaluation note No assessment information availa ble [facility] Work Phone: Reason for referral (narrative) Note Date & Type Note Facility Reason for referral (narrative) No reason for referral information available [facility] Work Phone: Summary Purpose Family History No Family History Records Found Relationship Condition Age at Onset Recorded Date/T anatoly Not Specified Myocardial infarction Unknown mother Cardiac disease Unknown Cerebrovascular accident (CVA) Unknown father Cardiac disease Unknown Advance Directives No Advanced Directives Records Found Advance Directive Response Recorded Date/ Time Living Will No November 25, 2021 9 :12am Power of Face Cleaner No November 25, 2021 9:12am Advance Directive Response Recorded Date/ Time Living Will No November 25, 2021 9 :12am Do you have a Healthcare Power of Face Cleaner? No November 25, 2021 9:12am Chief Complaint and Reason for Visit Chief Complaint 1 Y FU INT LABS Reason for Visit Atherosclerosis of c oronary artery of [place] heart without angina pectoris Ischemic cardiomyopathy Chief Complaint Admit Date 18 m fu August 16, 2024 3:55pm CAD September 24, 2024 6:17 am Reason for Visit Admit Date Atherosclerosis of coronary artery of [place] heart without angina pectoris August 16, 2024 3:55pm Ischemic cardiomyopathy August 16, 2 025 3:55pm Additional Source Comments (unrecognized sect ion and content) No Status Records FoundNo Status Records Found INFORMATION SOURCE (unrecogn ized section and content) DATE CREATED AUTHOR 12/12/2017 [facility] ([place]) DATE CREATED AUTHOR AUTHOR'S ORGANIZ ATION 02/15/2025 [facility] Care Teams (unrecognized sec tion and content) Team Status: Active Member Role Status Dates Dr. Robel Vargas , DO Family Provider Active Dr. Robel Vargas , DO Primary Care Provider Active Team Status: Inactive Member Role Status Dates Dr. Robel Vargas , DO Primary Care Provider, Referring Provider Active Eliezer Hardin PAPER PRODUCTS MACHINE OPERATOR, PAPER PRODUCTS MACHINE OPERATOR-C Attending Provider Active Team Status: Inactive Member Role Status Dates Dr. Robel Vargas DO Primary Care Provider Active Eliezer Hardin PAPER PRODUCTS MACHINE OPERATOR, PAPER PRODUCTS MACHINE OPERATOR-C Attending Provider, Referring Pro vider Active Team Status: Inactive Member Role Status Dates Dr. Robel Vargas DO Primary Care Provider Active Eliezer Hardin PAPER PRODUCTS MACHINE OPERATOR, PAPER PRODUCTS MACHINE OPERATOR-C Attending Provider Active Team Status: Active Member Role Status Dates Dr. Robel Vargas DO Primary Care Provider Active Team Status: Inactive Member Role Status Dates Dr. Robel Vargas DO Primary Care Provider Active Start: August 16, 2024 End: August 16, 2024 Dr. Robel Vargas DO Referring Provider Active Start: August 16, 2024 End: August 16, 2024 Eliezer Hardin PAPER PRODUCTS MACHINE OPERATOR, PAPER PRODUCTS MACHINE OPERATOR-C Attending Provider Active S tart: August 16, 2024 End: August 16, 2024 Team Status: Inactive Member Role Status Dates Dr. Robel Vargas DO Primary Care Provider Active Start: September 24, 2024 End: September 24, 2024 Eliezer Hardin PAPER PRODUCTS MACHINE OPERATOR, PAPER PRODUCTS MACHINE OPERATOR-C Attending Provider Active S tart: September 24, 2024 End: September 24, 2024 Eliezer Hardin PAPER PRODUCTS MACHINE OPERATOR, PAPER PRODUCTS MACHINE OPERATOR-C Referring Provider Active S tart: September 24, 2024 End: September 24, 2024 Team Status: Active Member Role Status Dates Dr. Robel Vargas DO Primary Care Provider Active Start: September 24, 2024 Dr. Ryley Araiza MD Attending Provider Active S tart: September 24, 2024 Team Status: Active Member Role/Relationship Status Dates Dr. Robel Vargas DO Primary Care Provider Active Team Status: Inactive Member Role/Relationship Status Dates Dr. Robel Vargas DO Primary Care Provider Active Start: February 06, 2025 End: February 06, 2025 Dr. Robel Vargas DO Attending Provider Active Start: February 06, 2025 End: February 06, 2025 Dr. Robel Vargas DO Referring Provider Active Start: February 06, 2025 End: February 06, 2025 Goals (unrecognized section and content) Goals may [...] BE BASED ON THE PRIMARY CLINICAL RECORDS. [facility] provides no warranty or guarantee of the accuracy or completeness of information in this document.
== END | disposition home or self-care (01) ==
LOC: LAB 11:12
PROVIDERS: PCP Family Medicine; Referring Provider Family Medicine; Visit Provider Family Medicine
DX: Z12.5 Encounter for screening for malignant neoplasm of prostate (principal)
CPT/HCPCS: 84153; G0103